=== PATIENT | female | born 1950 | race Caucasian/White ===

== ENCOUNTER 2019-12-21 12:55 | Outpatient (CLI) | payer MEDICARE, BC, SELFPAY ==
--- NOTE | 2019-12-21 | DI.US_ITS ---
EXAM: US UPPER EXTREMITY VENOUS RT CLINICAL HISTORY: PT HAS PICC LINE, NEW PAIN RADIATING, ? DVT, LOSS OF RANGE OF MOTION. TECHNIQUE: Ultrasound examination of the right upper extremity venous system(s) is performed using g rayscale, color-flow, and spectral Doppler analysis. COMPARISON: No exams were available for comparison FINDINGS: The right internal jugular, axillary, subclavian, cephalic, and basilic veins are patent without evid ence of thrombosis. There is a PICC line seen in the right brachial vein. There is hypoechoic throm bus seen in the proximal and mid right brachial vein. IMPRESSION: Thrombus seen in the proximal mid right brachial vein. PICC line seen in the right brachial vein. DATA REPOSITORY:
== END 2019-12-21 13:15 ==
PROVIDERS: PCP Internal Medicine; Visit Provider Nurse Practitioner Family
DX: I82.621 Acute embolism and thrombosis of deep veins of right upper extremity (principal); Z95.828 Presence of other vascular implants and grafts; M79.601 Pain in right arm; D46.20 Refractory anemia with excess of blasts, unspecified; Z45.2 Encounter for adjustment and management of vascular access device
CPT/HCPCS: 36592; 80053; 86850; 86900; 86901; 85025; 93971

== ENCOUNTER 2019-12-31 02:00 | Outpatient (RCR) | payer MEDICARE, BC, SELFPAY ==
[2019-12-21 09:49] LABS: HCT 25.6 % (36.0-46.0); HGB 8.6 g/dL (12.0-15.5); Mean Corp. HGB Concentration 33.6 g/dL (32.0-36.0); Mean Corpuscular Hemoglobin 35.1 pg (27.0-33.0); Mean Corpuscular Volume 104.5 fL (80-95); Mean Platelet Volume 9.2 fL (8.0-11.0); RBC 2.45 m/cumm (4.00-5.20); White Blood Cell Count 3.43 k/cumm (4.4-10.8)
[2019-12-21 10:02] LABS: ALT 17 U/L (14-59); AST 14 U/L (15-37); Albumin 3.2 g/dL (3.4-5.0); Alkaline Phosphatase 79 U/L (46-116); Anion Gap 6.4 mmol/L (3-11); BUN 15 mg/dL (7-18); Bilirubin, Total 0.3 mg/dL (0.2-1.0); CO2 30.6 mmol/L (21.0-32.0); CREATININE 0.64 mg/dL (0.55-1.02); Calcium 8.8 mg/dL (8.5-10.1); Chloride 102 mmol/L (98-107); Glucose 104 mg/dL (74-106); Potassium 3.4 mmol/L (3.5-5.1); Sodium 139 mmol/L (136-145); Total Protein 6.3 g/dL (6.4-8.2)
[2019-12-21 10:11] LABS: Absolute Neutrophil Count 1.47 k/cumm (1.2-6.7)
[2019-12-21 10:12] LABS: Absolute Eosinophil Count 0.03 k/cumm (0.0-0.7); Absolute Lymphocyte Count 1.65 k/cumm (1.2-3.4); Absolute Monocyte Count 0.27 k/cumm (0.11-0.7)
[2019-12-21 10:23] LABS: Anisocytosis 3+; Diff Comment Manual Differential; Platelet Count 100 x1000/uL (130-400)
[2019-12-21 10:24] LABS: Polychromasia Present
[2019-12-21] MEDS: Normal Saline Flush 10 ML SYR IVP (11:01)
[2019-12-24 10:40] LABS: Absolute Lymphocyte Count 1.53 k/cumm (1.2-3.4); Absolute Monocyte Count 0.25 k/cumm (0.11-0.7); Absolute Neutrophil Count 0.85 k/cumm (1.2-6.7); HCT 26.3 % (36.0-46.0); HGB 8.6 g/dL (12.0-15.5); Lymphocytes % 58.2; Mean Corp. HGB Concentration 32.7 g/dL (32.0-36.0); Mean Corpuscular Hemoglobin 34.4 pg (27.0-33.0); Mean Corpuscular Volume 105.2 fL (80-95); Mean Platelet Volume 9.2 fL (8.0-11.0); Monocytes % 9.5; Neutrophils % 32.3; White Blood Cell Count 2.63 k/cumm (4.4-10.8)
[2019-12-24 10:54] LABS: ALT 20 U/L (14-59); AST 20 U/L (15-37); Albumin 3.2 g/dL (3.4-5.0); Alkaline Phosphatase 76 U/L (46-116); Anion Gap 7.2 mmol/L (3-11); BUN 15 mg/dL (7-18); Bilirubin, Total 0.4 mg/dL (0.2-1.0); CO2 29.8 mmol/L (21.0-32.0); CREATININE 0.61 mg/dL (0.55-1.02); Calcium 8.7 mg/dL (8.5-10.1); Chloride 104 mmol/L (98-107); Glucose 90 mg/dL (74-106); Potassium 3.7 mmol/L (3.5-5.1); Sodium 141 mmol/L (136-145); Total Protein 6.6 g/dL (6.4-8.2)
[2019-12-24 10:59] LABS: Anisocytosis 3+; Diff Comment Agrees w/ Instrument; Macrocytosis 2+; Microcytosis 2+; Platelet Count 86 x1000/uL (130-400); Polychromasia Present
[2019-12-28 10:16] LABS: Absolute Lymphocyte Count 1.44 k/cumm (1.2-3.4); Absolute Monocyte Count 0.34 k/cumm (0.11-0.7); Absolute Neutrophil Count 0.59 k/cumm (1.2-6.7); HCT 26.4 % (36.0-46.0); HGB 8.9 g/dL (12.0-15.5); Lymphocytes % 60.8; Mean Corp. HGB Concentration 33.7 g/dL (32.0-36.0); Mean Corpuscular Hemoglobin 35.9 pg (27.0-33.0); Mean Corpuscular Volume 106.5 fL (80-95); Mean Platelet Volume 9.6 fL (8.0-11.0); Monocytes % 14.3; Neutrophils % 24.9; RBC 2.48 m/cumm (4.00-5.20); White Blood Cell Count 2.37 k/cumm (4.4-10.8)
[2019-12-28 10:27] LABS: ALT 39 U/L (14-59); AST 26 U/L (15-37); Albumin 3.3 g/dL (3.4-5.0); Alkaline Phosphatase 90 U/L (46-116); BUN 10 mg/dL (7-18); Bilirubin, Total 0.2 mg/dL (0.2-1.0); CREATININE 0.57 mg/dL (0.55-1.02); Calcium 8.8 mg/dL (8.5-10.1); Chloride 103 mmol/L (98-107); Glucose 106 mg/dL (74-106); Potassium 3.4 mmol/L (3.5-5.1); Sodium 140 mmol/L (136-145); Total Protein 6.8 g/dL (6.4-8.2)
[2019-12-28] MEDS: Normal Saline Flush 10 ML SYR IVP (10:34)
[2019-12-28 10:40] LABS: Anisocytosis 2+; Diff Comment Agrees w/ Instrument; Macrocytosis 2+; Microcytosis 2+; Platelet Count 69 x1000/uL (130-400); Polychromasia Present
[2019-12-31] MEDS: Normal Saline Flush 10 ML SYR IVP (09:50)
[2019-12-31 10:20] LABS: Abs Immature Grans 0.01 10^3/uL (0.0-0.06); Absolute Basophil Count 0.01 10^3/uL (0.0-0.2); Absolute Lymphocyte Count 1.29 10^3/uL (1.2-3.4); Absolute Monocyte Count 0.14 10^3/uL (0.1-0.8); Absolute Neutrophil Count 0.74 10^3/uL (1.2-6.7); Basophils % 0.5; HCT 25.6 % (36.0-46.0); HGB 8.4 g/dL (11.2-15.7); Immature Grans % 0.5; Lymphocytes % 58.9; MCH 35.9 pg (27.0-33.0); MCHC 32.8 % (32.0-36.0); MCV 109.4 fL (80-95); MPV 10.4 fL (8.0-11.0); Monocytes % 6.4; Neutrophils % 33.7; RBC 2.34 10^6/uL (3.93-5.22); WBC 2.19 10^3/uL (4.4-10.8)
[2019-12-31 10:39] LABS: ALT 35 U/L (14-59); AST 22 U/L (15-37); Albumin 3.2 g/dL (3.4-5.0); Alkaline Phosphatase 84 U/L (46-116); Anion Gap 8.1 mmol/L (3-11); BUN 15 mg/dL (7-18); Bilirubin, Total 0.2 mg/dL (0.2-1.0); CO2 27.9 mmol/L (21.0-32.0); CREATININE 0.56 mg/dL (0.55-1.02); Calcium 8.7 mg/dL (8.5-10.1); Chloride 102 mmol/L (98-107); Glucose 138 mg/dL (74-106); Potassium 3.7 mmol/L (3.5-5.1); Sodium 138 mmol/L (136-145); Total Protein 6.4 g/dL (6.4-8.2)
[2019-12-31 10:57] LABS: Platelet Count 68 10^3/uL (130-400)
[2019-12-31 10:58] LABS: Anisocytosis 2+; Diff Comment RBC Morph Reviewed; Macrocytosis 2+; Microcytosis 1+; Poikilocytes 1+; Polychromasia Present
== END 2020-01-01 23:59 | disposition home or self-care (01) ==
LOC: INF 02:00
PROVIDERS: PCP Internal Medicine; Visit Provider Internal Medicine Hematology
DX: D46.20 Refractory anemia with excess of blasts, unspecified (principal); Z45.2 Encounter for adjustment and management of vascular access device
CPT/HCPCS: 36592; 80053; 86850; 86900; 86901; 85025

== ENCOUNTER 2020-01-07 01:17 | Outpatient (CLI) | payer MEDICARE, BC, SELFPAY ==
--- NOTE | 2020-01-07 | DI.US_ITS ---
EXAM: US UPPER EXTREMITY VENOUS RT CLINICAL HISTORY: MYELODYSPLASTIC SYNDROME,D46.Z,ACUTE DVT,I82.621,H/O BRACHIAL VEIN CLOT TECHNIQUE: Ultrasound performed using standard protocol. COMPARISON: US US UPPER EXTREMITY VENOUS RT from 12/21/2019 FINDINGS: Prior study of December 20 showed DVT surrounding a PICC line in the right brachial vein. This thrombu s has now resolved. No DVT identified on today's examination. Please note that the axillary vein wa s not clearly identified on today's examination. IMPRESSION: Resolution of previously noted brachial DVT at the PICC line insertion site. DATA REPOSITORY:
== END 2020-01-07 01:37 ==
PROVIDERS: PCP Internal Medicine; Visit Provider Nurse Practitioner Family
DX: D46.Z Other myelodysplastic syndromes (principal); Z86.718 Personal history of other venous thrombosis and embolism
CPT/HCPCS: 36592; 80053; 85025; 93971

== ENCOUNTER 2020-02-01 02:41 | Outpatient (RCR) | payer MEDICARE, BC, SELFPAY ==
[2020-01-04 10:16] LABS: Abs Immature Grans 0.01 10^3/uL (0.0-0.06); Absolute Basophil Count 0.01 10^3/uL (0.0-0.2); Absolute Lymphocyte Count 1.24 10^3/uL (1.2-3.4); Absolute Monocyte Count 0.04 10^3/uL (0.1-0.8); Absolute Neutrophil Count 1.07 10^3/uL (1.2-6.7); Basophils % 0.4; HCT 26.1 % (36.0-46.0); HGB 8.6 g/dL (11.2-15.7); Immature Grans % 0.4; Lymphocytes % 52.3; MCH 36.1 pg (27.0-33.0); MCV 109.7 fL (80-95); MPV 10.4 fL (8.0-11.0); Monocytes % 1.7; Neutrophils % 45.2; RBC 2.38 10^6/uL (3.93-5.22); RDW 21.9 % (11.7-14.6); RDW-SD 85.4 fL; WBC 2.37 10^3/uL (4.4-10.8)
[2020-01-04] MEDS: Normal Saline Flush 10 ML SYR IVP (10:23)
[2020-01-04 10:31] LABS: ALT 29 U/L (14-59); AST 20 U/L (15-37); Albumin 3.2 g/dL (3.4-5.0); Alkaline Phosphatase 92 U/L (46-116); Anion Gap 5.9 mmol/L (3-11); BUN 16 mg/dL (7-18); Bilirubin, Total 0.2 mg/dL (0.2-1.0); CO2 30.1 mmol/L (21.0-32.0); CREATININE 0.58 mg/dL (0.55-1.02); Calcium 8.7 mg/dL (8.5-10.1); Chloride 104 mmol/L (98-107); Glucose 109 mg/dL (74-106); Potassium 3.5 mmol/L (3.5-5.1); Sodium 140 mmol/L (136-145); Total Protein 6.6 g/dL (6.4-8.2)
[2020-01-04 10:59] LABS: Diff Comment Agrees w/ Instrument
[2020-01-04 11:01] LABS: Anisocytosis 2+; Hypochromasia 1+; Macrocytosis 2+; Platelet Count 89 10^3/uL (130-400)
[2020-01-07] MEDS: Normal Saline Flush 10 ML SYR IVP (10:01)
[2020-01-07 10:09] LABS: Absolute Basophil Count 0.01 10^3/uL (0.0-0.2); Absolute Lymphocyte Count 1.26 10^3/uL (1.2-3.4); Absolute Monocyte Count 0.06 10^3/uL (0.1-0.8); Absolute Neutrophil Count 1.03 10^3/uL (1.2-6.7); Basophils % 0.4; HCT 26.8 % (36.0-46.0); HGB 8.8 g/dL (11.2-15.7); Lymphocytes % 53.4; MCH 36.5 pg (27.0-33.0); MCHC 32.8 % (32.0-36.0); MCV 111.2 fL (80-95); MPV 9.8 fL (8.0-11.0); Monocytes % 2.5; Neutrophils % 43.7; Nucleated RBC 0 %; RBC 2.41 10^6/uL (3.93-5.22); RDW 20.8 % (11.7-14.6); RDW-SD 82.3 fL; WBC 2.36 10^3/uL (4.4-10.8)
[2020-01-07 10:21] LABS: ALT 28 U/L (14-59); AST 18 U/L (15-37); Albumin 3.3 g/dL (3.4-5.0); Alkaline Phosphatase 91 U/L (46-116); Anion Gap 6.6 mmol/L (3-11); BUN 12 mg/dL (7-18); Bilirubin, Total 0.2 mg/dL (0.2-1.0); CO2 29.4 mmol/L (21.0-32.0); CREATININE 0.62 mg/dL (0.55-1.02); Chloride 103 mmol/L (98-107); Glucose 112 mg/dL (74-106); Potassium 3.6 mmol/L (3.5-5.1); Sodium 139 mmol/L (136-145); Total Protein 6.8 g/dL (6.4-8.2)
[2020-01-07 10:47] LABS: Anisocytosis 2+; Diff Comment Agrees w/ Instrument; Macrocytosis 1+; Platelet Count 117 10^3/uL (130-400); Polychromasia Present
[2020-01-07 10:49] LABS: Poikilocytes 1+
[2020-01-11 10:30] LABS: Abs Immature Grans 0.02 10^3/uL (0.0-0.06); Absolute Basophil Count 0.02 10^3/uL (0.0-0.2); Absolute Eosinophil Count 0.02 10^3/uL (0.0-0.7); Absolute Lymphocyte Count 0.24 10^3/uL (1.2-3.4); Absolute Monocyte Count 0.23 10^3/uL (0.1-0.8); Absolute Neutrophil Count 1.99 10^3/uL (1.2-6.7); Basophils % 0.8; Eosinophils % 0.8; HCT 30.9 % (36.0-46.0); HGB 10.4 g/dL (11.2-15.7); Immature Grans % 0.8; Lymphocytes % 9.5; MCH 30.6 pg (27.0-33.0); MCHC 33.7 % (32.0-36.0); MCV 90.9 fL (80-95); MPV 8.2 fL (8.0-11.0); Monocytes % 9.1; Nucleated RBC 0 %; Platelet Count 172 10^3/uL (130-400); RDW-SD 45.2 fL; WBC 2.52 10^3/uL (4.4-10.8)
[2020-01-11] MEDS: Normal Saline Flush 10 ML SYR IVP (10:31)
[2020-01-11 10:47] LABS: ALT 21 U/L (14-59); AST 14 U/L (15-37); Albumin 3.3 g/dL (3.4-5.0); Alkaline Phosphatase 106 U/L (46-116); Anion Gap 7.5 mmol/L (3-11); BUN 24 mg/dL (7-18); Bilirubin, Total 0.3 mg/dL (0.2-1.0); CO2 29.5 mmol/L (21.0-32.0); CREATININE 0.73 mg/dL (0.55-1.02); Calcium 8.9 mg/dL (8.5-10.1); Chloride 91 mmol/L (98-107); Glucose 109 mg/dL (74-106); Potassium 4.2 mmol/L (3.5-5.1); Sodium 128 mmol/L (136-145); Total Protein 6.7 g/dL (6.4-8.2)
[2020-01-21] MEDS: Normal Saline Flush 10 ML SYR IVP (08:54)
[2020-01-21] MEDS: Heparin 500 UNITS/5 ML SYRINGE IVP (08:54)
[2020-01-21 08:57] LABS: Abs Immature Grans 0.01 10^3/uL (0.0-0.06); HCT 23.5 % (36.0-46.0); HGB 7.7 g/dL (11.2-15.7); MCH 37.4 pg (27.0-33.0); MCHC 32.8 % (32.0-36.0); MCV 114.1 fL (80-95); MPV 9.8 fL (8.0-11.0); RBC 2.06 10^6/uL (3.93-5.22); RDW 17.7 % (11.7-14.6); WBC 2.78 10^3/uL (4.4-10.8)
[2020-01-21 09:12] LABS: ALT 18 U/L (14-59); AST 13 U/L (15-37); Alkaline Phosphatase 78 U/L (46-116); Anion Gap 9.1 mmol/L (3-11); BUN 14 mg/dL (7-18); Bilirubin, Total 0.3 mg/dL (0.2-1.0); CO2 28.9 mmol/L (21.0-32.0); CREATININE 0.76 mg/dL (0.55-1.02); Calcium 8.9 mg/dL (8.5-10.1); Chloride 102 mmol/L (98-107); Glucose 187 mg/dL (74-106); Potassium 3.3 mmol/L (3.5-5.1); Sodium 140 mmol/L (136-145); Total Protein 6.5 g/dL (6.4-8.2)
[2020-01-21 09:20] LABS: Absolute Eosinophil Count 0.03 10^3/uL (0.0-0.7); Absolute Lymphocyte Count 1.42 10^3/uL (1.2-3.4); Absolute Monocyte Count 0.22 10^3/uL (0.1-0.8); Absolute Neutrophil Count 1.11 10^3/uL (1.2-6.7); Anisocytosis 1+; Diff Comment Manual Differential; Macrocytosis 2+; Platelet Count 74 10^3/uL (130-400); Poikilocytes 1+
[2020-01-21 09:21] LABS: Nucleated RBC 0 %
[2020-01-21 12:09] LABS: Magnesium 1.6 mg/dL (1.8-2.4)
[2020-01-22] MEDS: diphenhydrAMINE 25 MG CAP PO (11:57)
[2020-01-22] MEDS: Acetaminophen 325 MG TAB 650 MG PO (11:57)
[2020-01-22] MEDS: Normal Saline Flush 10 ML SYR IVP (11:58)
[2020-01-22] MEDS: Heparin 500 UNITS/5 ML SYRINGE IVP (11:58)
[2020-01-22 12:10] VITALS: BP 119/61; PULSE 89; RESP 20; TEMP 36.4; O2SAT 100
[2020-01-22 12:25] VITALS: BP 132/79; PULSE 91; RESP 20; TEMP 36.2; O2SAT 100
[2020-01-22 12:40] VITALS: BP 127/75; PULSE 90; RESP 18; TEMP 36.3; O2SAT 100
[2020-01-22 12:55] VITALS: BP 121/78; PULSE 83; RESP 19; TEMP 36.3; O2SAT 95
[2020-01-22 13:10] VITALS: BP 126/74; PULSE 82; RESP 19; TEMP 36.6; O2SAT 100
[2020-01-25] MEDS: Normal Saline Flush 10 ML SYR IVP (10:26)
[2020-01-25 10:47] LABS: HCT 27.5 % (36.0-46.0); MCV 106.2 fL (80-95); RBC 2.59 10^6/uL (3.93-5.22); RDW 19.9 % (11.7-14.6)
[2020-01-25 10:50] LABS: Abs Immature Grans 0.01 10^3/uL (0.0-0.06); Absolute Eosinophil Count 0.02 10^3/uL (0.0-0.7); Eosinophils % 0.6; Immature Grans % 0.3; Nucleated RBC 0 %
[2020-01-25 10:54] LABS: ALT 18 U/L (14-59); AST 14 U/L (15-37); Alkaline Phosphatase 81 U/L (46-116); Anion Gap 5.3 mmol/L (3-11); BUN 16 mg/dL (7-18); Bilirubin, Total 0.3 mg/dL (0.2-1.0); CO2 30.7 mmol/L (21.0-32.0); CREATININE 0.49 mg/dL (0.55-1.02); Calcium 8.7 mg/dL (8.5-10.1); Chloride 103 mmol/L (98-107); Glucose 124 mg/dL (74-106); Potassium 3.7 mmol/L (3.5-5.1); Sodium 139 mmol/L (136-145); Total Protein 6.3 g/dL (6.4-8.2)
[2020-01-25 11:06] LABS: Absolute Lymphocyte Count 1.41 10^3/uL (1.2-3.4); Absolute Monocyte Count 0.24 10^3/uL (0.1-0.8); Absolute Neutrophil Count 1.77 10^3/uL (1.2-6.7); HGB 9.3 g/dL (11.2-15.7); Lymphocytes % 40.9; MCH 35.9 pg (27.0-33.0); MCHC 33.8 % (32.0-36.0); MPV 10.2 fL (8.0-11.0); Neutrophils % 51.2; RDW-SD 74.6 fL; WBC 3.45 10^3/uL (4.4-10.8)
[2020-01-25] MEDS: Heparin 500 UNITS/5 ML SYRINGE IVP (11:21)
[2020-01-25 11:34] LABS: Platelet Count 60 10^3/uL (130-400)
[2020-01-25 11:35] LABS: Basophilic Stippling Present; Diff Comment RBC Morph Reviewed; Macrocytosis 2+; Polychromasia Present
[2020-01-27 10:18] LABS: Magnesium 1.7 mg/dL (1.8-2.4)
[2020-01-28] MEDS: Heparin 500 UNITS/5 ML SYRINGE IVP (09:58)
[2020-01-28] MEDS: Normal Saline Flush 10 ML SYR IVP (09:58)
[2020-01-28 10:21] LABS: Absolute Eosinophil Count 0.01 10^3/uL (0.0-0.7); Absolute Lymphocyte Count 1.42 10^3/uL (1.2-3.4); Absolute Monocyte Count 0.17 10^3/uL (0.1-0.8); Absolute Neutrophil Count 1.02 10^3/uL (1.2-6.7); Eosinophils % 0.4; HCT 27.9 % (36.0-46.0); HGB 9.3 g/dL (11.2-15.7); Lymphocytes % 54.2; MCH 35.5 pg (27.0-33.0); MCHC 33.3 % (32.0-36.0); MCV 106.5 fL (80-95); MPV 10.4 fL (8.0-11.0); Monocytes % 6.5; Neutrophils % 38.9; Nucleated RBC 0 %; RBC 2.62 10^6/uL (3.93-5.22); RDW 19.2 % (11.7-14.6); RDW-SD 73.4 fL; WBC 2.62 10^3/uL (4.4-10.8)
[2020-01-28 10:36] LABS: ALT 23 U/L (14-59); AST 13 U/L (15-37); Albumin 3.3 g/dL (3.4-5.0); Alkaline Phosphatase 85 U/L (46-116); Anion Gap 4.4 mmol/L (3-11); BUN 14 mg/dL (7-18); Bilirubin, Total 0.4 mg/dL (0.2-1.0); CO2 30.6 mmol/L (21.0-32.0); Calculated LDL 106 mg/dL (<100); Chloride 107 mmol/L (98-107); Cholesterol 193 mg/dL (<200); Glucose 107 mg/dL (74-106); HDL Cholesterol 68 mg/dL (40-60); Magnesium 1.6 mg/dL (1.8-2.4); Potassium 3.6 mmol/L (3.5-5.1); Sodium 142 mmol/L (136-145); Total Protein 6.7 g/dL (6.4-8.2); Triglyceride 95 mg/dL (<150)
[2020-01-28 10:52] LABS: Diff Comment Diff Reviewed; Macrocytosis 2+; Platelet Count 53 10^3/uL (130-400); Polychromasia Present
[2020-02-01] MEDS: Heparin 500 UNITS/5 ML SYRINGE IVP (09:47)
[2020-02-01] MEDS: Normal Saline Flush 10 ML SYR IVP (09:47)
[2020-02-01 10:12] LABS: HCT 25.8 % (36.0-46.0); HGB 8.9 g/dL (11.2-15.7); MCH 36.2 pg (27.0-33.0); MCHC 34.5 % (32.0-36.0); MCV 104.9 fL (80-95); MPV 10.9 fL (8.0-11.0); Nucleated RBC 0 %; RBC 2.46 10^6/uL (3.93-5.22); RDW 19.1 % (11.7-14.6); RDW-SD 71.8 fL; WBC 2.83 10^3/uL (4.4-10.8)
[2020-02-01 10:23] LABS: ALT 22 U/L (14-59); AST 16 U/L (15-37); Albumin 3.1 g/dL (3.4-5.0); Alkaline Phosphatase 86 U/L (46-116); Anion Gap 6.8 mmol/L (3-11); BUN 15 mg/dL (7-18); Bilirubin, Total 0.3 mg/dL (0.2-1.0); CO2 30.2 mmol/L (21.0-32.0); CREATININE 0.57 mg/dL (0.55-1.02); Calcium 8.8 mg/dL (8.5-10.1); Chloride 103 mmol/L (98-107); Glucose 88 mg/dL (74-106); Magnesium 1.7 mg/dL (1.8-2.4); Potassium 3.5 mmol/L (3.5-5.1); Sodium 140 mmol/L (136-145); Total Protein 6.7 g/dL (6.4-8.2)
[2020-02-01 10:47] LABS: Absolute Lymphocyte Count 1.64 10^3/uL (1.2-3.4); Absolute Neutrophil Count 0.99 10^3/uL (1.2-6.7); Anisocytosis 1+; Diff Comment Manual Differential; Polychromasia Present
[2020-02-01 10:48] LABS: Platelet Count 41 10^3/uL (130-400); Poikilocytes 1+
== END 2020-02-01 23:59 | disposition home or self-care (01) ==
LOC: INF 02:41
PROVIDERS: PCP Internal Medicine; Visit Provider Internal Medicine Hematology
DX: D46.Z Other myelodysplastic syndromes (principal); Z45.2 Encounter for adjustment and management of vascular access device; E78.5 Hyperlipidemia, unspecified
CPT/HCPCS: 36430; 36591; 36592; 80053; 80061; 86850; 86900; 86901; 86920; 86945; 83735; 85025; 86644; P9016

== ENCOUNTER 2020-03-01 01:57 | Outpatient (RCR) | payer MEDICARE, BC, SELFPAY ==
[2020-02-04] MEDS: Heparin 500 UNITS/5 ML SYRINGE IV (09:35)
[2020-02-04] MEDS: Normal Saline Flush 10 ML SYR IVP (09:35)
[2020-02-04 09:48] LABS: Absolute Lymphocyte Count 1.17 10^3/uL (1.2-3.4); Absolute Neutrophil Count 1.17 10^3/uL (1.2-6.7); HCT 25.4 % (36.0-46.0); HGB 8.5 g/dL (11.2-15.7); MCH 35.9 pg (27.0-33.0); MCHC 33.5 % (32.0-36.0); MCV 107.2 fL (80-95); MPV 10.8 fL (8.0-11.0); Monocytes % 4.1; Neutrophils % 47.9; Nucleated RBC 0 %; RBC 2.37 10^6/uL (3.93-5.22); RDW 19.4 % (11.7-14.6); RDW-SD 74.3 fL; WBC 2.44 10^3/uL (4.4-10.8)
[2020-02-04 09:59] LABS: ALT 31 U/L (14-59); AST 18 U/L (15-37); Alkaline Phosphatase 104 U/L (46-116); Anion Gap 6.6 mmol/L (3-11); BUN 15 mg/dL (7-18); Bilirubin, Total 0.3 mg/dL (0.2-1.0); CO2 29.4 mmol/L (21.0-32.0); CREATININE 0.56 mg/dL (0.55-1.02); Calcium 8.7 mg/dL (8.5-10.1); Chloride 103 mmol/L (98-107); Glucose 124 mg/dL (74-106); Magnesium 1.6 mg/dL (1.8-2.4); Potassium 3.4 mmol/L (3.5-5.1); Sodium 139 mmol/L (136-145); Total Protein 6.6 g/dL (6.4-8.2)
[2020-02-04 10:18] LABS: Anisocytosis 1+; Diff Comment RBC Morph Reviewed; Hypochromasia 1+; Macrocytosis 2+; Platelet Count 43 10^3/uL (130-400)
[2020-02-04 10:19] LABS: Poikilocytes 1+; Polychromasia Present
[2020-02-09] MEDS: Normal Saline Flush 10 ML SYR IVP (09:52)
[2020-02-09] MEDS: Heparin 500 UNITS/5 ML SYRINGE IV (09:53)
[2020-02-09 10:02] LABS: HCT 24.3 % (36.0-46.0); HGB 8.1 g/dL (11.2-15.7); MCH 36.2 pg (27.0-33.0); MCHC 33.3 % (32.0-36.0); MCV 108.5 fL (80-95); MPV 10.4 fL (8.0-11.0); Nucleated RBC 0 %; RBC 2.24 10^6/uL (3.93-5.22); RDW 18.8 % (11.7-14.6); RDW-SD 73.9 fL; WBC 2.38 10^3/uL (4.4-10.8)
[2020-02-09 10:11] LABS: ALT 29 U/L (14-59); AST 15 U/L (15-37); Albumin 3.1 g/dL (3.4-5.0); Alkaline Phosphatase 115 U/L (46-116); Anion Gap 5.8 mmol/L (3-11); BUN 12 mg/dL (7-18); Bilirubin, Total 0.3 mg/dL (0.2-1.0); CO2 30.2 mmol/L (21.0-32.0); CREATININE 0.49 mg/dL (0.55-1.02); Calcium 8.5 mg/dL (8.5-10.1); Chloride 102 mmol/L (98-107); Glucose 97 mg/dL (74-106); Magnesium 1.6 mg/dL (1.8-2.4); Potassium 3.4 mmol/L (3.5-5.1); Sodium 138 mmol/L (136-145); Total Protein 6.6 g/dL (6.4-8.2)
[2020-02-09 10:28] LABS: Absolute Monocyte Count 0.05 10^3/uL (0.1-0.8); Absolute Neutrophil Count 1.19 10^3/uL (1.2-6.7); Anisocytosis 2+; Diff Comment Manual Differential; Platelet Count 72 10^3/uL (130-400)
[2020-02-09 10:29] LABS: Absolute Lymphocyte Count 1.14 10^3/uL (1.2-3.4); Atypical Lymphocytes % 3; Macrocytosis 2+; Polychromasia Present
[2020-02-11] MEDS: Normal Saline Flush 10 ML SYR IVP (09:45)
[2020-02-11] MEDS: Heparin 500 UNITS/5 ML SYRINGE IV (09:45)
[2020-02-11 10:05] LABS: HCT 24.3 % (36.0-46.0); HGB 8.1 g/dL (11.2-15.7); MCH 36.2 pg (27.0-33.0); MCHC 33.3 % (32.0-36.0); MCV 108.5 fL (80-95); MPV 10.2 fL (8.0-11.0); Nucleated RBC 0 %; Platelet Count 75 10^3/uL (130-400); RBC 2.24 10^6/uL (3.93-5.22); RDW 18.7 % (11.7-14.6); RDW-SD 74.7 fL; WBC 2.03 10^3/uL (4.4-10.8)
[2020-02-11 10:14] LABS: ALT 29 U/L (14-59); AST 16 U/L (15-37); Albumin 3.1 g/dL (3.4-5.0); Alkaline Phosphatase 127 U/L (46-116); Anion Gap 8.3 mmol/L (3-11); BUN 13 mg/dL (7-18); Bilirubin, Total 0.3 mg/dL (0.2-1.0); CO2 27.7 mmol/L (21.0-32.0); Calcium 8.7 mg/dL (8.5-10.1); Chloride 101 mmol/L (98-107); Glucose 102 mg/dL (74-106); Magnesium 1.7 mg/dL (1.8-2.4); Potassium 3.4 mmol/L (3.5-5.1); Sodium 137 mmol/L (136-145); Total Protein 6.8 g/dL (6.4-8.2)
[2020-02-11 10:43] LABS: Absolute Neutrophil Count 0.71 10^3/uL (1.2-6.7)
[2020-02-11 10:44] LABS: Absolute Eosinophil Count 0.02 10^3/uL (0.0-0.7); Absolute Lymphocyte Count 1.26 10^3/uL (1.2-3.4); Absolute Monocyte Count 0.04 10^3/uL (0.1-0.8); Anisocytosis 2+; Diff Comment Manual Differential; Macrocytosis 2+
[2020-02-15] MEDS: Heparin 500 UNITS/5 ML SYRINGE IV (09:45)
[2020-02-15] MEDS: Normal Saline Flush 10 ML SYR IVP (09:45)
[2020-02-15 09:59] LABS: Abs Immature Grans 0.01 10^3/uL (0.0-0.06); Absolute Lymphocyte Count 1.18 10^3/uL (1.2-3.4); Absolute Monocyte Count 0.07 10^3/uL (0.1-0.8); HGB 7.6 g/dL (11.2-15.7); Immature Grans % 0.7; Lymphocytes % 82.5; MCH 35.8 pg (27.0-33.0); MCV 108.5 fL (80-95); MPV 9.4 fL (8.0-11.0); Monocytes % 4.9; Neutrophils % 11.9; Nucleated RBC 0 %; RBC 2.12 10^6/uL (3.93-5.22); RDW-SD 70.6 fL
[2020-02-15 10:20] LABS: ALT 26 U/L (14-59); AST 17 U/L (15-37); Albumin 2.9 g/dL (3.4-5.0); Alkaline Phosphatase 134 U/L (46-116); Anion Gap 6.8 mmol/L (3-11); BUN 16 mg/dL (7-18); Bilirubin, Total 0.3 mg/dL (0.2-1.0); CO2 28.2 mmol/L (21.0-32.0); CREATININE 0.57 mg/dL (0.55-1.02); Calcium 8.7 mg/dL (8.5-10.1); Chloride 103 mmol/L (98-107); Glucose 129 mg/dL (74-106); Magnesium 1.9 mg/dL (1.8-2.4); Potassium 3.5 mmol/L (3.5-5.1); Sodium 138 mmol/L (136-145); Total Protein 6.7 g/dL (6.4-8.2)
[2020-02-15 10:40] LABS: Diff Comment Agrees w/ Instrument; Hypochromasia 2+; Macrocytosis 2+; Platelet Count 71 10^3/uL (130-400)
[2020-02-15 10:48] LABS: WBC 1.43 10^3/uL (4.4-10.8)
[2020-02-15 10:49] LABS: Absolute Neutrophil Count 0.17 10^3/uL (1.2-6.7)
[2020-02-16] VITALS (8 sets, daily range): BP systolic 112–157; BP diastolic 57–87; PULSE 74–89; RESP 18–19; TEMP 36–36.9; O2SAT 99–100
[2020-02-16] MEDS: Acetaminophen 325 MG TAB 650 MG PO (09:44)
[2020-02-16] MEDS: diphenhydrAMINE 25 MG CAP PO (09:45)
[2020-02-16] MEDS: Normal Saline Flush 10 ML SYR IVP (11:44)
[2020-02-18] MEDS: Normal Saline Flush 10 ML SYR IVP (13:45)
[2020-02-18] MEDS: Heparin 500 UNITS/5 ML SYRINGE IV (13:45)
[2020-02-18 13:56] LABS: Abs Immature Grans 0.01 10^3/uL (0.0-0.06); Absolute Lymphocyte Count 1.04 10^3/uL (1.2-3.4); Absolute Monocyte Count 0.16 10^3/uL (0.1-0.8); HCT 23.5 % (36.0-46.0); Immature Grans % 0.7; Lymphocytes % 69.3; MCH 35.2 pg (27.0-33.0); MCV 103.5 fL (80-95); MPV 9.9 fL (8.0-11.0); Monocytes % 10.7; Neutrophils % 19.3; Nucleated RBC 0 %; RBC 2.27 10^6/uL (3.93-5.22); RDW 18.8 % (11.7-14.6); RDW-SD 70.9 fL
[2020-02-18 14:17] LABS: ALT 28 U/L (14-59); AST 22 U/L (15-37); Albumin 2.7 g/dL (3.4-5.0); Alkaline Phosphatase 145 U/L (46-116); Anion Gap 6.1 mmol/L (3-11); BUN 19 mg/dL (7-18); Bilirubin, Total 0.3 mg/dL (0.2-1.0); CO2 27.9 mmol/L (21.0-32.0); CREATININE 0.82 mg/dL (0.55-1.02); Calcium 8.5 mg/dL (8.5-10.1); Chloride 100 mmol/L (98-107); Glucose 224 mg/dL (74-106); Magnesium 1.7 mg/dL (1.8-2.4); Potassium 3.6 mmol/L (3.5-5.1); Sodium 134 mmol/L (136-145); Total Protein 6.5 g/dL (6.4-8.2)
[2020-02-18 14:21] LABS: Absolute Neutrophil Count 0.29 10^3/uL (1.2-6.7); Diff Comment Agrees w/ Instrument; Platelet Count 43 10^3/uL (130-400)
[2020-02-18 14:22] LABS: Anisocytosis 1+; Macrocytosis 1+; Polychromasia Present
[2020-02-22] MEDS: Heparin 500 UNITS/5 ML SYRINGE IV (12:27)
[2020-02-22] MEDS: Normal Saline Flush 10 ML SYR IVP (12:27)
[2020-02-22 12:39] LABS: Abs Immature Grans 0.02 10^3/uL (0.0-0.06); Absolute Eosinophil Count 0.01 10^3/uL (0.0-0.7); Absolute Lymphocyte Count 1.15 10^3/uL (1.2-3.4); Absolute Monocyte Count 0.37 10^3/uL (0.1-0.8); Absolute Neutrophil Count 0.96 10^3/uL (1.2-6.7); Eosinophils % 0.4; HCT 22.5 % (36.0-46.0); HGB 7.5 g/dL (11.2-15.7); Immature Grans % 0.8; Lymphocytes % 45.8; MCH 34.7 pg (27.0-33.0); MCHC 33.3 % (32.0-36.0); MCV 104.2 fL (80-95); Monocytes % 14.7; Neutrophils % 38.3; Nucleated RBC 1 %; RBC 2.16 10^6/uL (3.93-5.22); RDW 17.2 % (11.7-14.6); RDW-SD 66.1 fL; WBC 2.51 10^3/uL (4.4-10.8)
[2020-02-22 12:54] LABS: ALT 28 U/L (14-59); AST 21 U/L (15-37); Albumin 2.7 g/dL (3.4-5.0); Alkaline Phosphatase 150 U/L (46-116); Anion Gap 9.5 mmol/L (3-11); BUN 20 mg/dL (7-18); Bilirubin, Total 0.3 mg/dL (0.2-1.0); CO2 27.5 mmol/L (21.0-32.0); CREATININE 0.69 mg/dL (0.55-1.02); Calcium 8.6 mg/dL (8.5-10.1); Chloride 100 mmol/L (98-107); Glucose 183 mg/dL (74-106); Potassium 3.5 mmol/L (3.5-5.1); Sodium 137 mmol/L (136-145); Total Protein 6.7 g/dL (6.4-8.2)
[2020-02-22 13:16] LABS: Anisocytosis 1+; Diff Comment Agrees w/ Instrument; Platelet Count 28 10^3/uL (130-400); Polychromasia Present
[2020-02-23 11:05] VITALS: BP 162/97; PULSE 91; RESP 19; TEMP 36.2; O2SAT 100
[2020-02-23 11:13] VITALS: BP 158/95; PULSE 88; RESP 18; TEMP 36.2; O2SAT 100
[2020-02-23] MEDS: Heparin 500 UNITS/5 ML SYRINGE IV (11:15)
[2020-02-23] MEDS: Normal Saline Flush 10 ML SYR IVP (11:15)
[2020-02-23 11:28] VITALS: BP 154/75; PULSE 86; RESP 18; TEMP 36; O2SAT 100
[2020-02-23 11:43] VITALS: BP 155/88; PULSE 86; RESP 19; TEMP 36; O2SAT 100
[2020-02-23 12:13] VITALS: BP 141/63; PULSE 83; RESP 18; TEMP 36.1; O2SAT 100
[2020-02-23 12:44] VITALS: BP 141/69; PULSE 90; RESP 18; TEMP 36; O2SAT 100
[2020-02-25] MEDS: Normal Saline Flush 10 ML SYR IVP (09:55)
[2020-02-25 10:11] LABS: Abs Immature Grans 0.01 10^3/uL (0.0-0.06); Absolute Lymphocyte Count 1.38 10^3/uL (1.2-3.4); Absolute Monocyte Count 0.33 10^3/uL (0.1-0.8); Absolute Neutrophil Count 1.22 10^3/uL (1.2-6.7); HCT 25.3 % (36.0-46.0); HGB 8.5 g/dL (11.2-15.7); Immature Grans % 0.3; Lymphocytes % 46.9; MCH 33.6 pg (27.0-33.0); MCHC 33.6 % (32.0-36.0); MPV 11.1 fL (8.0-11.0); Monocytes % 11.2; Neutrophils % 41.6; Nucleated RBC 0 %; RBC 2.53 10^6/uL (3.93-5.22); RDW 18.1 % (11.7-14.6); RDW-SD 65.1 fL; WBC 2.94 10^3/uL (4.4-10.8)
[2020-02-25 10:28] LABS: ALT 31 U/L (14-59); AST 26 U/L (15-37); Albumin 2.7 g/dL (3.4-5.0); Alkaline Phosphatase 150 U/L (46-116); Anion Gap 7.6 mmol/L (3-11); BUN 19 mg/dL (7-18); Bilirubin, Total 0.3 mg/dL (0.2-1.0); CO2 28.4 mmol/L (21.0-32.0); CREATININE 0.59 mg/dL (0.55-1.02); Calcium 8.6 mg/dL (8.5-10.1); Chloride 102 mmol/L (98-107); Glucose 111 mg/dL (74-106); Potassium 3.7 mmol/L (3.5-5.1); Sodium 138 mmol/L (136-145); Total Protein 6.5 g/dL (6.4-8.2)
[2020-02-25 10:43] LABS: Platelet Count 20 10^3/uL (130-400)
[2020-02-25 10:44] LABS: Anisocytosis 1+; Diff Comment Diff Reviewed; Macrocytosis 1+; Polychromasia Present
[2020-02-29] MEDS: Normal Saline Flush 10 ML SYR IVP (10:08)
[2020-02-29 10:25] LABS: Abs Immature Grans 0.01 10^3/uL (0.0-0.06); Absolute Lymphocyte Count 1.43 10^3/uL (1.2-3.4); Absolute Monocyte Count 0.32 10^3/uL (0.1-0.8); Immature Grans % 0.3; Lymphocytes % 43.9; MCH 34.2 pg (27.0-33.0); MCHC 33.7 % (32.0-36.0); MCV 101.6 fL (80-95); MPV 9.8 fL (8.0-11.0); Monocytes % 9.8; Nucleated RBC 0 %; RBC 1.87 10^6/uL (3.93-5.22); RDW 17.3 % (11.7-14.6); RDW-SD 63.1 fL; WBC 3.26 10^3/uL (4.4-10.8)
[2020-02-29 10:43] LABS: HGB 6.4 g/dL (11.2-15.7)
[2020-02-29 10:44] LABS: Diff Comment Diff Reviewed; Platelet Count 19 10^3/uL (130-400)
[2020-02-29 10:45] LABS: Anisocytosis 2+; Polychromasia Present
[2020-02-29 10:50] LABS: ALT 34 U/L (14-59); AST 21 U/L (15-37); Albumin 2.6 g/dL (3.4-5.0); Alkaline Phosphatase 159 U/L (46-116); Anion Gap 6.5 mmol/L (3-11); BUN 19 mg/dL (7-18); Bilirubin, Total 0.3 mg/dL (0.2-1.0); CO2 27.5 mmol/L (21.0-32.0); CREATININE 0.56 mg/dL (0.55-1.02); Calcium 8.6 mg/dL (8.5-10.1); Chloride 102 mmol/L (98-107); Glucose 140 mg/dL (74-106); Potassium 3.5 mmol/L (3.5-5.1); Sodium 136 mmol/L (136-145); Total Protein 6.4 g/dL (6.4-8.2)
[2020-03-01] VITALS (10 sets, daily range): BP systolic 106–141; BP diastolic 66–85; PULSE 83–92; RESP 18; TEMP 36.3–36.8; O2SAT 99–100
[2020-03-01] MEDS: Acetaminophen 325 MG TAB 650 MG PO (12:40)
[2020-03-01] MEDS: diphenhydrAMINE 25 MG CAP PO (12:40)
[2020-03-01] MEDS: Normal Saline Flush 10 ML SYR IVP (14:00)
== END 2020-03-02 23:59 | disposition home or self-care (01) ==
LOC: INF 01:57
PROVIDERS: Internal Medicine Hematology; PCP Internal Medicine; Visit Provider Nurse Practitioner Family
DX: D46.Z Other myelodysplastic syndromes (principal); Z45.2 Encounter for adjustment and management of vascular access device
CPT/HCPCS: 36430; 36591; 80053; 86850; 86900; 86901; 86920; 86945; 83735; 85025; 86644; P9016; P9035

== ENCOUNTER 2020-03-18 04:52 | Outpatient (CLI) | payer MEDICARE, BC, SELFPAY ==
--- NOTE | 2020-03-18 08:01 | DI.RAD_ITS ---
EXAM: XR CHEST 2V PA LATERAL CLINICAL HISTORY: FEVER, UNKNOWN CAUSE,R50.9 TECHNIQUE: 2D digital imaging was performed. COMPARISON: No exams were available for comparison FINDINGS: MEDIASTINUM: Normal. HEART: Normal. PULMONARY VASCULATURE: Normal. LUNGS: Clear. PLEURAL SPACE: No pleural effusion or pneumothorax. BONE:Within normal limits for the patient's age. OTHER FINDINGS:The tip of the indwelling central venous catheter is in good position at the junction of the superior vena cava and right atrium. IMPRESSION: No acute pulmonary findings. DATA REPOSITORY: RADIATION DOSE DELIVERED:
== END 2020-03-18 05:12 ==
PROVIDERS: PCP Internal Medicine; Visit Provider Internal Medicine Hematology & Oncology
DX: R50.9 Fever, unspecified (principal)
CPT/HCPCS: 71046

== ENCOUNTER 2020-03-24 10:33 | Emergency (ER) | payer MEDICARE, BC, SELFPAY ==
[2020-03-24] VITALS (30 sets, daily range): BP systolic 103–136; BP diastolic 52–81; PULSE 84–205; RESP 13–31; TEMP 36.6–37.6; O2SAT 98–100
--- NOTE | 2020-03-24 10:45 | DI.RAD_ITS ---
EXAM: XR PORTABLE CHEST AP CLINICAL HISTORY: Fever TECHNIQUE: 2D digital imaging was performed. COMPARISON: CR XR CHEST 2V PA LATERAL from 03/18/2020 FINDINGS: Heart size is normal. A port is noted over the chest. Lungs are well inflated and clear. No infilt rate or effusion is seen. IMPRESSION: No acute abnormality.
--- NOTE | 2020-03-24 11:00 | ED.GENADUL_ITS ---
Discharge Plan Disposition Patient Disposition: HOME Condition: Improving Discharge Details Clinical Impression: Anemia, Encounter for blood transfusion Primary Care Provider: Emerson Trujillo ED Provider: Celeste Simms Home Meds and New Rx's Prescriptions: Continued acyclovir 400 mg tablet 400 mg PO BID RF: 0 magnesium oxide 400 mg (241.3 mg magnesium) tablet 400 mg PO DAILY RF: 0 omeprazole 20 mg capsule,delayed release(DR/EC) 20 mg PO .Q600 RF: 0 Discontinued Eliquis 2.5 mg tablet 2.5 mg PO BID RF: 0 Discharge Instructions Instructions: Anemia (ED), Blood Transfusion (DC) Additional Instructions: At this time your lab values have increased to 7.8 and 23.5 please stop the Eliquis. Follow-up on Saturday as previously scheduled. Please return to the ED for any fever, dark tarry stools or blood noted in her stools, abnormal ble eding. Worsening shortness of breath or any concerns. Follow up with primary care provider in 3-5 days. Return to ED sooner if any worsening or concerns. Increase oral fluids. Referrals: Emerson Trujillo [Primary Care Provider] - Discharge Data Discharge Date/Time-TO BE ENTERED AT DEPARTURE: 03/24/20 15:58 Medical Decision Making 70-year-old female presents to the ED with critically low hemoglobin hematocrit of 5.3 and 15.9 platelets are 27. She has a history of myelodysplastic syndrome and a long extensive history of cancer. She was sent here from the infusion clinic. She did receive a unit of PRBCs and a unit of platelets earlier this week. She has no abdominal pain, no nausea vomiting diarrhea. She does report possibly an episode of dark stools earlier in the week. She is currently on Eliquis. At this time 2 units of PRBCs ordered to be infused, PT/INR ordered urinalysis and guaiac stool. This time not a sufficient sample of stool was obtained with a digital rectal exam. Hemoccult is negative at this time. Will consider CT abdomen pelvis to rule out intra-abdominal pathology. 1214: Spoke with Emerson Trujillo MD who recommends repeat H& H after blood infusion and stopping the Eliquis with a plan to recheck patient on Saturday. He does not recommend CT or any imaging at this time. PRBCs are infusing at this time. Informed by staff physical therapy assistant that patient's temp was 98 and bumped up to 99 with the beginning of the infusion. No shortness of breath, no back pain, no chest pain no other symptoms no rash. EXAM: XR PORTABLE CHEST AP CLINICAL HISTORY: Fever TECHNIQUE: 2D digital imaging was performed. COMPARISON: CR XR CHEST 2V PA LATERAL from 03/18/2020 FINDINGS: Heart size is normal. A port is noted over the chest. Lungs are well inflated and clear. No infiltrate or effusion is seen. IMPRESSION: No acute abnormality. 1451: Blood is still infusing patient is receiving her second unit of packed red blood cells at this time. Temperature is 37.2. Patient received 1 g of Tylenol p.o. in department. Will recheck CBC after completion of second unit and make disposition from there. 1512: Blood transfusion is complete, CBC is pending at this time. 1532: Repeat CBC shows hemoglobin of 7.8, hematocrit 23.5 and platelets of 22. Hemoglobin hematocrit been responsive to the 2 units of PRBCs as expected. Platelet count has dropped somewhat. Patient has been as low as 18 in the past on review of labs. At this time I do feel it is safe to discharge home as patient's labs responded to blood transfusion. Will instruct patient to stop the Eliquis as instructed by Dr. Trujillo and have follow-up on Saturday as previously scheduled. Will discuss strict return instructions to return to the ED, verbalized understanding. HPI General Mode of arrival: wheelchair . Date/Time Provider Initiated Documentation: 03/24/20 10:41 . Limitations to Documentation: no limitations . Information obtained by: patient, family and old records reviewed . HPI Narrative: 70-year-old female presents to the ED from infusion center with reports of critically low hemoglobin hematocrit. Blood was drawn today prior to the infusion and patient was noted to have hemoglobin of 5.3 and hematocrit 15.9 this is decreased from previous result of 7.2 and 21.2. Patient has a history of myelodysplastic syndrome and has been receiving recurrent red blood cell transfusions and platelet transfusions in the infusion center. She is being followed by Dr. Flores here with [facility] oncology she reports increased weakness, recently has been requesting the use wheelchair to perform activities of daily living, she states that recent urinalysis showed little bit of blood, she also reports some dark stools recently. She denies any abdominal pain, shortness of breath or chest pain. She has had a past medical history of follicular lymphoma in 2003, left breast cancer 1995, endometrial cancer status post vaginal hysterectomy and the myelodysplastic syndrome. Related Data Home Medications Medication Instructions Recorded Confirmed acyclovir 400 mg PO BID 03/24/20 03/24/20 magnesium oxide 400 mg PO DAILY 03/24/20 03/24/20 omeprazole 20 mg PO .Q600 03/24/20 03/24/20 Allergies Allergy/AdvReac Type Severity Reaction Status Date / Time No Known Allergies Allergy Unverified 03/24/20 10:41 General Stated Complaint: GenMedical SHILPA: 2 Review of Systems Narrative: Constitutional: Negative for weight loss, alert and oriented, well groomed, normal body habitus, appears comfortable. Positive fever HEENT: Denies trauma, headaches, blurry vision, nasal discharge, sore throat, trouble swallowing. Chest: Denies chest pain, palpitations, irregular rhythm, hypertension. Respiratory: Denies Shortness of breath, cough, hemoptysis. GI: Denies abdominal pain, nausea, vomiting, diarrhea, constipation. : Denies dysuria, hematuria, flank pain, rectal bleeding. Neuro: Denies dizziness, blurry vision, syncope, headache or facial numbness. Positive generalized weakness Hematologic: Denies easy bruising, intolerance to heat or cold, hair loss. [facility] Medical History (Updated 03/24/20 @ 15:35 by Celeste Simms) Breast cancer, left Endometrial cancer Follicular lymphoma Social History Smoking/Tobacco Use Status: Never Alcohol Intake: never Drug use: Never Do you feel safe at home: Yes Do you feel safe in your relationship?: Yes Exam Narrative Exam Narrative: Constitutional: Alert and oriented x3. Appears stated age. Normal body habitus. Head: Normocephalic, no trauma. Eyes: Pupils PERRLA, Red reflex noted, EOM's intact. Eyelids symmetrical without lesions, discharge, or swelling. ENT: Bilateral TM's WNL, External ear normal to inspection, no mastoid TTP, swelling, or erythema, Nasal turbinates WNL, no nasal discharge. Normal dentition, Posterior pharynx WNL, no exudate. Chest: RRR, Normal S1, S2, distal pulses intact. Resp: Lungs clear to auscultation bilaterally, no wheezes, rales, or rhonchi. Musculoskeletal: Normal gait, 5/5 strength to all four extremities. Skin: No suspicious rashes or lesions. Capillary refill less than 2 sec. Neurologic: Cranial nerves II-XII intact. Alert and oriented x 3. DTR's intact. Hematologic/Lymphatic: No ecchymosis, no lymphadenopathy. Course Vital Signs Vital signs: Vital Signs Temperature 36.6 C 03/24/20 10:45 Pulse 96 H 03/24/20 10:45 Respiratory Rate 19 03/24/20 10:45 Blood Pressure 120/74 03/24/20 10:45 Pulse Oximetry 100 03/24/20 10:45 Temperature 36.6 C 03/24/20 10:45 Temperature Source Temporal Artery Scan 03/24/20 10:45 Pulse 96 H 03/24/20 10:45 Respiratory Rate 19 03/24/20 10:45 Respiratory Effort Non-Labored 03/24/20 10:53 Blood Pressure 120/74 03/24/20 10:45 Blood Pressure Position Supine 03/24/20 10:45 Pulse Oximetry 100 03/24/20 10:45 Oxygen Delivery Method Room Air 03/24/20 10:45 Oxygen Flow Rate 0 03/24/20 10:45 Pain Level 0 03/24/20 10:45 Lab/Test Results Lab/Test Results: Laboratory Tests Range/Units 03/24/20 10:51 Crossmatch See Detail Procedures Stool Hemoccult Procedural Steps Taken: stool placed in appropriate test area (Not enough sample obtained from SH[facility]), developer placed on stool and control areas and controls appropriately positive and negative Hemoccult result: negative (Questionable appropriate stool sample)
[2020-03-24 11:19] LABS: Bilirubin Negative (Negative); Blood Trace-intact (Negative); Clarity Sl Cloudy (Clear); Glucose Negative (Negative); Ketones Negative (Negative); Leukocyte Esterase Negative (Negative); Nitrite Negative (Negative); Specific Gravity 1.025 (1.005-1.025); Urobilinogen 0.2 EU/dL (Up TO 0.2)
[2020-03-24 11:26] LABS: Bacteria Negative HPF (Negative); C & S Indicated? No; Casts Negative LPF (Negative); Crystals Negative HPF (Negative); Epithelial Cells Rare HPF (Negative); Mucus Trace (Negative); WBC 0-2 HPF (0-5)
[2020-03-24 11:48] LABS: INR 1.1 (0.9-1.1); PTT Activated 23.5 sec (21.0-31.4); Prothrombin Time 10.6 sec (9.3-11.0)
--- NOTE | 2020-03-24 13:02 | NUR.NOTE ---
Provided pt and company with lunch tray.
[2020-03-24] MEDS: Acetaminophen 325 MG TAB (13:41)
[2020-03-24 15:11] LABS: HCT 23.5 % (36.0-46.0); HGB 7.8 g/dL (11.2-15.7); MCHC 33.2 % (32.0-36.0); MCV 84.2 fL (80-95); RBC 2.79 10^6/uL (3.93-5.22); RDW 17.6 % (11.7-14.6); RDW-SD 53.2 fL; WBC 2.51 10^3/uL (4.4-10.8)
[2020-03-24 15:24] LABS: Platelet Count 22 10^3/uL (130-400)
== END 2020-03-24 15:58 | disposition home or self-care (01) ==
PROVIDERS: Emergency Provider Registered Nurse Emergency; PCP Internal Medicine Hematology & Oncology
DX: D46.9 Myelodysplastic syndrome, unspecified (principal); R71.0 Precipitous drop in hematocrit; D69.6 Thrombocytopenia, unspecified; Z95.828 Presence of other vascular implants and grafts; Z79.01 Long term (current) use of anticoagulants
CPT/HCPCS: 36415; 36430; 85027; 86850; 86900; 86901; 86920; 86945; 87040; 99285; 71045; 81003; 81015; 85610; 85730; 86644; P9016

== ENCOUNTER 2020-03-31 10:00 | Outpatient (RCR) | payer MEDICARE, BC, SELFPAY ==
[2020-03-03] VITALS (10 sets, daily range): BP systolic 96–152; BP diastolic 58–85; PULSE 53–96; RESP 18–19; TEMP 36–37; O2SAT 98–100
[2020-03-03] MEDS: Normal Saline Flush 10 ML SYR IVP ×2 (09:28→11:39)
[2020-03-03 09:36] LABS: ALT 28 U/L (14-59); AST 16 U/L (15-37); Albumin 2.6 g/dL (3.4-5.0); Alkaline Phosphatase 143 U/L (46-116); Anion Gap 7.3 mmol/L (3-11); BUN 15 mg/dL (7-18); Bilirubin, Total 0.3 mg/dL (0.2-1.0); CO2 27.7 mmol/L (21.0-32.0); CREATININE 0.66 mg/dL (0.55-1.02); Calcium 8.4 mg/dL (8.5-10.1); Chloride 103 mmol/L (98-107); Glucose 231 mg/dL (74-106); Potassium 3.5 mmol/L (3.5-5.1); Sodium 138 mmol/L (136-145); Total Protein 6.4 g/dL (6.4-8.2)
[2020-03-03 09:37] LABS: Abs Immature Grans 0.01 10^3/uL (0.0-0.06); Absolute Basophil Count 0.01 10^3/uL (0.0-0.2); Absolute Lymphocyte Count 1.15 10^3/uL (1.2-3.4); Absolute Neutrophil Count 1.12 10^3/uL (1.2-6.7); Basophils % 0.4; Immature Grans % 0.4; Lymphocytes % 46.2; MCH 32.4 pg (27.0-33.0); MCHC 33.3 % (32.0-36.0); MCV 97.2 fL (80-95); Nucleated RBC 0 %; Platelet Count 66 10^3/uL (130-400); RBC 2.13 10^6/uL (3.93-5.22); RDW 19.4 % (11.7-14.6); RDW-SD 65.4 fL; WBC 2.49 10^3/uL (4.4-10.8)
[2020-03-03 10:41] LABS: HCT 20.7 % (36.0-46.0); HGB 6.9 g/dL (11.2-15.7)
[2020-03-03 10:42] LABS: Anisocytosis 2+; Hypochromasia 1+; Polychromasia Present
[2020-03-03 15:04] LABS: Diff Comment RBC Morph Reviewed
[2020-03-07] MEDS: Heparin 500 UNITS/5 ML SYRINGE IV (10:20)
[2020-03-07] MEDS: Normal Saline Flush 10 ML SYR IVP (10:20)
[2020-03-07 10:23] LABS: Abs Immature Grans 0.01 10^3/uL (0.0-0.06); Absolute Lymphocyte Count 1.21 10^3/uL (1.2-3.4); Absolute Monocyte Count 0.29 10^3/uL (0.1-0.8); Absolute Neutrophil Count 1.33 10^3/uL (1.2-6.7); HCT 29.3 % (36.0-46.0); Immature Grans % 0.4; Lymphocytes % 42.6; MCHC 34.1 % (32.0-36.0); MCV 90.7 fL (80-95); MPV 10.1 fL (8.0-11.0); Monocytes % 10.2; Neutrophils % 46.8; Nucleated RBC 0 %; RBC 3.23 10^6/uL (3.93-5.22); RDW 18.6 % (11.7-14.6); RDW-SD 59.1 fL; WBC 2.84 10^3/uL (4.4-10.8)
[2020-03-07 10:39] LABS: Anisocytosis 1+; Diff Comment PLT Morph Reviewed; Platelet Count 27 10^3/uL (130-400); Polychromasia Present
[2020-03-07 10:41] LABS: ALT 32 U/L (14-59); AST 21 U/L (15-37); Albumin 2.6 g/dL (3.4-5.0); Alkaline Phosphatase 176 U/L (46-116); Anion Gap 6.8 mmol/L (3-11); BUN 15 mg/dL (7-18); Bilirubin, Total 0.3 mg/dL (0.2-1.0); CO2 31.2 mmol/L (21.0-32.0); CREATININE 0.58 mg/dL (0.55-1.02); Calcium 8.9 mg/dL (8.5-10.1); Chloride 102 mmol/L (98-107); Glucose 104 mg/dL (74-106); Potassium 3.6 mmol/L (3.5-5.1); Sodium 140 mmol/L (136-145); Total Protein 6.7 g/dL (6.4-8.2)
[2020-03-07 13:44] VITALS: BP 128/78; PULSE 80; RESP 18; TEMP 37; O2SAT 100
[2020-03-10] MEDS: Heparin 500 UNITS/5 ML SYRINGE IV (10:14)
[2020-03-10] MEDS: Normal Saline Flush 10 ML SYR IVP (10:14)
[2020-03-10 10:18] LABS: Abs Immature Grans 0.01 10^3/uL (0.0-0.06); Absolute Lymphocyte Count 1.38 10^3/uL (1.2-3.4); Absolute Monocyte Count 0.21 10^3/uL (0.1-0.8); Absolute Neutrophil Count 1.25 10^3/uL (1.2-6.7); HCT 27.1 % (36.0-46.0); Immature Grans % 0.4; Lymphocytes % 48.4; MCHC 33.2 % (32.0-36.0); MCV 90.3 fL (80-95); MPV 11.7 fL (8.0-11.0); Monocytes % 7.4; Neutrophils % 43.8; Nucleated RBC 0 %; RDW 18.1 % (11.7-14.6); RDW-SD 57.2 fL; WBC 2.85 10^3/uL (4.4-10.8)
[2020-03-10 10:40] LABS: ALT 32 U/L (14-59); AST 20 U/L (15-37); Albumin 2.5 g/dL (3.4-5.0); Alkaline Phosphatase 187 U/L (46-116); Anion Gap 8.7 mmol/L (3-11); BUN 18 mg/dL (7-18); Bilirubin, Total 0.3 mg/dL (0.2-1.0); CO2 28.3 mmol/L (21.0-32.0); CREATININE 0.61 mg/dL (0.55-1.02); Calcium 8.9 mg/dL (8.5-10.1); Chloride 101 mmol/L (98-107); Glucose 128 mg/dL (74-106); Potassium 3.7 mmol/L (3.5-5.1); Sodium 138 mmol/L (136-145); Total Protein 6.6 g/dL (6.4-8.2)
[2020-03-10 10:44] LABS: Platelet Count 16 10^3/uL (130-400)
[2020-03-11 09:24] VITALS: BP 182/105; PULSE 107; RESP 18; TEMP 36.1; O2SAT 100
[2020-03-11] MEDS: Acetaminophen 325 MG TAB 650 MG PO (09:24)
[2020-03-11] MEDS: diphenhydrAMINE 25 MG CAP PO (09:24)
[2020-03-11] MEDS: Heparin 500 UNITS/5 ML SYRINGE IV (09:33)
[2020-03-11] MEDS: Normal Saline Flush 10 ML SYR IVP (09:33)
[2020-03-11 10:00] VITALS: BP 134/82; PULSE 102; RESP 18; TEMP 36.9; O2SAT 99
[2020-03-14] MEDS: Normal Saline Flush 10 ML SYR IVP (10:39)
[2020-03-14 10:42] LABS: Abs Immature Grans 0.01 10^3/uL (0.0-0.06); Absolute Lymphocyte Count 1.33 10^3/uL (1.2-3.4); Absolute Monocyte Count 0.19 10^3/uL (0.1-0.8); Absolute Neutrophil Count 1.28 10^3/uL (1.2-6.7); HCT 21.5 % (36.0-46.0); HGB 7.2 g/dL (11.2-15.7); Immature Grans % 0.4; Lymphocytes % 47.3; MCH 30.6 pg (27.0-33.0); MCHC 33.5 % (32.0-36.0); MCV 91.5 fL (80-95); MPV 9.9 fL (8.0-11.0); Monocytes % 6.8; Neutrophils % 45.5; Nucleated RBC 0 %; RBC 2.35 10^6/uL (3.93-5.22); RDW 18.4 % (11.7-14.6); RDW-SD 58.8 fL; WBC 2.81 10^3/uL (4.4-10.8)
[2020-03-14 10:56] LABS: Platelet Count 55 10^3/uL (130-400)
[2020-03-14 10:57] LABS: Anisocytosis 2+; Diff Comment PLT Morph Reviewed
[2020-03-14 11:20] VITALS: BP 106/98; PULSE 94; RESP 18; TEMP 36.8; O2SAT 100
[2020-03-14 11:41] VITALS: BP 125/64; PULSE 90; RESP 16; TEMP 37.7; O2SAT 99
[2020-03-14 11:56] VITALS: BP 120/55; PULSE 87; RESP 17; TEMP 36.9; O2SAT 98
[2020-03-14 13:00] VITALS: BP 120/73; PULSE 93; RESP 17; TEMP 37; O2SAT 99
[2020-03-14 13:30] VITALS: BP 104/79; PULSE 92; RESP 18; TEMP 38; O2SAT 98
[2020-03-17] MEDS: Normal Saline Flush 10 ML SYR IVP (10:16)
[2020-03-17 10:22] LABS: Abs Immature Grans 0.02 10^3/uL (0.0-0.06); Absolute Lymphocyte Count 1.26 10^3/uL (1.2-3.4); Absolute Monocyte Count 0.17 10^3/uL (0.1-0.8); Absolute Neutrophil Count 1.08 10^3/uL (1.2-6.7); HCT 24.5 % (36.0-46.0); HGB 8.1 g/dL (11.2-15.7); Immature Grans % 0.8; Lymphocytes % 49.8; MCH 30.3 pg (27.0-33.0); MCHC 33.1 % (32.0-36.0); MCV 91.8 fL (80-95); MPV 9.8 fL (8.0-11.0); Monocytes % 6.7; Neutrophils % 42.7; Nucleated RBC 0 %; RBC 2.67 10^6/uL (3.93-5.22); RDW 16.8 % (11.7-14.6); RDW-SD 54.1 fL; WBC 2.53 10^3/uL (4.4-10.8)
[2020-03-17 10:37] LABS: Platelet Count 29 10^3/uL (130-400)
[2020-03-17 10:38] LABS: Anisocytosis 1+; Diff Comment PLT Morph Reviewed; Polychromasia Present
[2020-03-17 11:16] LABS: ALT 33 U/L (14-59); AST 19 U/L (15-37); Albumin 2.4 g/dL (3.4-5.0); Alkaline Phosphatase 179 U/L (46-116); Anion Gap 10.6 mmol/L (3-11); BUN 17 mg/dL (7-18); Bilirubin, Total 0.3 mg/dL (0.2-1.0); CO2 26.4 mmol/L (21.0-32.0); CREATININE 0.63 mg/dL (0.55-1.02); Calcium 8.6 mg/dL (8.5-10.1); Chloride 101 mmol/L (98-107); Glucose 185 mg/dL (74-106); Magnesium 1.7 mg/dL (1.8-2.4); Potassium 3.4 mmol/L (3.5-5.1); Sodium 138 mmol/L (136-145); Total Protein 6.5 g/dL (6.4-8.2)
[2020-03-18] VITALS (7 sets, daily range): BP systolic 115–175; BP diastolic 48–160; PULSE 83–96; RESP 18–19; TEMP 36–36.8; O2SAT 99–100
[2020-03-18] MEDS: Normal Saline Flush 10 ML SYR IVP (08:54)
[2020-03-21] MEDS: Normal Saline Flush 10 ML SYR IVP ×2 (10:13→12:29)
[2020-03-21 10:22] LABS: ALT 47 U/L (14-59); AST 29 U/L (15-37); Albumin 2.3 g/dL (3.4-5.0); Alkaline Phosphatase 204 U/L (46-116); Anion Gap 6.3 mmol/L (3-11); BUN 21 mg/dL (7-18); Bilirubin, Total 0.3 mg/dL (0.2-1.0); CO2 28.7 mmol/L (21.0-32.0); CREATININE 0.63 mg/dL (0.55-1.02); Calcium 8.6 mg/dL (8.5-10.1); Chloride 101 mmol/L (98-107); Glucose 159 mg/dL (74-106); Magnesium 1.7 mg/dL (1.8-2.4); Potassium 3.4 mmol/L (3.5-5.1); Sodium 136 mmol/L (136-145); Total Protein 6.3 g/dL (6.4-8.2)
[2020-03-21 10:28] LABS: Abs Immature Grans 0.01 10^3/uL (0.0-0.06); Absolute Lymphocyte Count 1.38 10^3/uL (1.2-3.4); Absolute Monocyte Count 0.18 10^3/uL (0.1-0.8); Absolute Neutrophil Count 1.02 10^3/uL (1.2-6.7); HCT 21.2 % (36.0-46.0); HGB 7.2 g/dL (11.2-15.7); Immature Grans % 0.4; Lymphocytes % 53.3; MCV 91.4 fL (80-95); MPV 10.9 fL (8.0-11.0); Monocytes % 6.9; Neutrophils % 39.4; Nucleated RBC 1 %; RBC 2.32 10^6/uL (3.93-5.22); RDW 16.3 % (11.7-14.6); RDW-SD 52.1 fL; WBC 2.59 10^3/uL (4.4-10.8)
[2020-03-21 10:55] LABS: Diff Comment Diff Reviewed; Hypochromasia 2+; Platelet Count 11 10^3/uL (130-400)
[2020-03-21 11:43] LABS: Bilirubin Negative (Negative); Blood Small (Negative); Clarity Sl Cloudy (Clear); Glucose Negative (Negative); Ketones Negative (Negative); Leukocyte Esterase Negative (Negative); Nitrite Negative (Negative); Urobilinogen 0.2 EU/dL (Up TO 0.2); pH 5.5 (5-8)
[2020-03-21 11:51] LABS: Bacteria Rare HPF (Negative); C & S Indicated? No; Casts Negative LPF (Negative); Crystals Negative HPF (Negative); Epithelial Cells Rare HPF (Negative); Mucus Trace (Negative); WBC 0-2 HPF (0-5)
[2020-03-21 12:20] VITALS: BP 148/65; PULSE 88; RESP 17; TEMP 36.5; O2SAT 100
[2020-03-21 12:42] VITALS: BP 137/84; PULSE 91; RESP 19; TEMP 36.7; O2SAT 100
[2020-03-21 13:10] VITALS: BP 132/66; PULSE 89; RESP 18; TEMP 36.7; O2SAT 100
[2020-03-21 13:27] VITALS: BP 127/78; PULSE 92; RESP 18; TEMP 36.6; O2SAT 100
[2020-03-21 14:18] VITALS: BP 135/83; PULSE 91; RESP 16; TEMP 37; O2SAT 99
[2020-03-22] MEDS: diphenhydrAMINE 25 MG CAP PO (12:56)
[2020-03-22] MEDS: Acetaminophen 325 MG TAB 650 MG PO (12:57)
[2020-03-22] MEDS: Normal Saline Flush 10 ML SYR IVP (12:57)
[2020-03-22 12:58] VITALS: BP 163/93; PULSE 95; RESP 19; TEMP 36.5; O2SAT 100
[2020-03-22 13:29] VITALS: BP 130/74; PULSE 93; RESP 16; TEMP 36.9; O2SAT 99
[2020-03-24] MEDS: Normal Saline Flush 10 ML SYR IVP (09:47)
[2020-03-24 09:55] LABS: Abs Immature Grans 0.01 10^3/uL (0.0-0.06); Absolute Lymphocyte Count 1.47 10^3/uL (1.2-3.4); Absolute Monocyte Count 0.16 10^3/uL (0.1-0.8); Absolute Neutrophil Count 1.06 10^3/uL (1.2-6.7); Immature Grans % 0.4; Lymphocytes % 54.4; MCH 29.4 pg (27.0-33.0); MCHC 33.3 % (32.0-36.0); MCV 88.3 fL (80-95); MPV 9.6 fL (8.0-11.0); Monocytes % 5.9; Neutrophils % 39.3; Nucleated RBC 1 %; RDW 16.3 % (11.7-14.6); RDW-SD 50.8 fL
[2020-03-24 10:13] LABS: ALT 44 U/L (14-59); AST 24 U/L (15-37); Albumin 2.3 g/dL (3.4-5.0); Alkaline Phosphatase 240 U/L (46-116); Anion Gap 6.4 mmol/L (3-11); BUN 20 mg/dL (7-18); Bilirubin, Total 0.3 mg/dL (0.2-1.0); CO2 27.6 mmol/L (21.0-32.0); CREATININE 0.54 mg/dL (0.55-1.02); Calcium 8.3 mg/dL (8.5-10.1); Chloride 102 mmol/L (98-107); Glucose 145 mg/dL (74-106); Magnesium 1.7 mg/dL (1.8-2.4); Potassium 3.5 mmol/L (3.5-5.1); Sodium 136 mmol/L (136-145); Total Protein 6.1 g/dL (6.4-8.2)
[2020-03-24 10:18] LABS: HCT 15.9 % (36.0-46.0); HGB 5.3 g/dL (11.2-15.7)
[2020-03-24 10:19] LABS: Diff Comment RBC Morph Reviewed; Platelet Count 27 10^3/uL (130-400)
[2020-03-28] VITALS (15 sets, daily range): BP systolic 118–152; BP diastolic 63–89; PULSE 86–107; RESP 16–21; TEMP 35.9–37; O2SAT 97–100
[2020-03-28] MEDS: Normal Saline Flush 10 ML SYR IVP (09:38)
[2020-03-28 09:55] LABS: Abs Immature Grans 0.02 10^3/uL (0.0-0.06); Absolute Basophil Count 0.01 10^3/uL (0.0-0.2); Absolute Monocyte Count 0.13 10^3/uL (0.1-0.8); Absolute Neutrophil Count 0.78 10^3/uL (1.2-6.7); Basophils % 0.5; Lymphocytes % 53.9; MCH 27.5 pg (27.0-33.0); MCHC 32.3 % (32.0-36.0); MPV 10.4 fL (8.0-11.0); Monocytes % 6.4; Neutrophils % 38.2; RBC 2.33 10^6/uL (3.93-5.22); RDW 16.4 % (11.7-14.6); RDW-SD 50.7 fL; WBC 2.04 10^3/uL (4.4-10.8)
[2020-03-28 10:01] LABS: ALT 40 U/L (14-59); AST 25 U/L (15-37); Albumin 2.3 g/dL (3.4-5.0); Alkaline Phosphatase 253 U/L (46-116); Anion Gap 5.9 mmol/L (3-11); BUN 16 mg/dL (7-18); Bilirubin, Total 0.2 mg/dL (0.2-1.0); CO2 28.1 mmol/L (21.0-32.0); CREATININE 0.55 mg/dL (0.55-1.02); Calcium 8.3 mg/dL (8.5-10.1); Chloride 102 mmol/L (98-107); Glucose 157 mg/dL (74-106); Magnesium 1.9 mg/dL (1.8-2.4); Potassium 3.4 mmol/L (3.5-5.1); Sodium 136 mmol/L (136-145)
[2020-03-28 10:14] LABS: HCT 19.8 % (36.0-46.0); Platelet Count 9 10^3/uL (130-400)
[2020-03-28 10:15] LABS: HGB 6.4 g/dL (11.2-15.7)
[2020-03-28 10:16] LABS: Diff Comment Manual Differential; Hypochromasia 1+; Microcytosis 1+; Nucleated RBC 1 %
[2020-03-28] MEDS: Acetaminophen 325 MG TAB 650 MG PO (13:48)
[2020-03-28] MEDS: diphenhydrAMINE 25 MG CAP PO (13:48)
[2020-03-31] MEDS: Normal Saline Flush 10 ML SYR IVP (10:03)
[2020-03-31 10:21] LABS: Abs Immature Grans 0.01 10^3/uL (0.0-0.06); Absolute Lymphocyte Count 0.95 10^3/uL (1.2-3.4); Absolute Monocyte Count 0.15 10^3/uL (0.1-0.8); Absolute Neutrophil Count 0.78 10^3/uL (1.2-6.7); HCT 26.5 % (36.0-46.0); HGB 8.8 g/dL (11.2-15.7); Immature Grans % 0.5; Lymphocytes % 50.3; MCHC 33.2 % (32.0-36.0); MCV 87.5 fL (80-95); MPV 12.7 fL (8.0-11.0); Monocytes % 7.9; Neutrophils % 41.3; Nucleated RBC 0 %; RBC 3.03 10^6/uL (3.93-5.22); RDW 14.6 % (11.7-14.6); RDW-SD 46.8 fL
[2020-03-31 10:35] LABS: WBC 1.89 10^3/uL (4.4-10.8)
[2020-03-31 10:37] LABS: Platelet Count 9 10^3/uL (130-400)
[2020-03-31 10:38] LABS: Diff Comment Diff Reviewed; Polychromasia Present
[2020-03-31 13:57] VITALS: BP 158/90; PULSE 95; RESP 18; TEMP 36.7; O2SAT 100
[2020-03-31] MEDS: Acetaminophen 325 MG TAB 650 MG PO (14:08)
[2020-03-31] MEDS: diphenhydrAMINE 25 MG CAP PO (14:08)
[2020-03-31 14:39] VITALS: BP 153/80; PULSE 94; RESP 18; TEMP 36.7; O2SAT 100
== END 2020-04-02 23:59 | disposition home or self-care (01) ==
LOC: INF 10:00
PROVIDERS: Nurse Practitioner Family; PCP Internal Medicine; Visit Provider Internal Medicine Hematology & Oncology
DX: D46.Z Other myelodysplastic syndromes (principal); R50.9 Fever, unspecified; Z45.2 Encounter for adjustment and management of vascular access device; D69.6 Thrombocytopenia, unspecified; Z95.828 Presence of other vascular implants and grafts; Z79.01 Long term (current) use of anticoagulants; R71.0 Precipitous drop in hematocrit
CPT/HCPCS: 36415; 36430; 36591; 80053; 85027; 86850; 86900; 86901; 86920; 86945; 87040; 99285; 71045; 71046; 81003; 81015; 83735; 85025; 85610; 85730; 86644; P9016; P9035

== ENCOUNTER 2020-05-01 12:45 | Emergency (ER) | payer MEDICARE, BC, SELFPAY ==
[2020-05-01 12:52] VITALS: BP 149/53; PULSE 105; RESP 16; TEMP 36.6; O2SAT 100
--- NOTE | 2020-05-01 12:53 | ED.GENADUL_ITS ---
Discharge Plan Disposition Patient Disposition: HOME Condition: Stable Discharge Details Clinical Impression: Myelodysplastic syndrome, Thrombocytopenia, Anemia, Bruising, spontaneous Primary Care Provider: Kristine Franklin ED Provider: Lillie Walker Home Meds and New Rx's Prescriptions: Continued acyclovir 400 mg tablet 400 mg PO BID RF: 0 magnesium oxide 400 mg (241.3 mg magnesium) tablet 400 mg PO DAILY RF: 0 omeprazole 20 mg capsule,delayed release(DR/EC) 20 mg PO .Q600 RF: 0 levofloxacin 500 mg Tablet 500 mg PO .NOON DAILY RF: 0 Discharge Instructions Additional Instructions: Your hemoglobin was 7 today, platelet count 28. I did speak with oncology. They did advise that he should have blood transfusion but that this could occur either today or tomorrow. You have elected to have this as an outpatient tomorrow. Please follow-up as previously scheduled. If you develop increased evidence of bleeding such as blood in your stool, blood in your urine, vomiting bladder or other new/worsening symptoms please seek care urgently once again. Referrals: Kristine Franklin [Primary Care Provider] - Discharge Data Discharge Date/Time-TO BE ENTERED AT DEPARTURE: 05/01/20 14:58 Medical Decision Making Patient is a pleasant 70 year old female presenting today with c/c of spontaneous bruising. She hashx of myelodysplastic syndrome. She is receiving treatment at [facility]. She reports that she last received platelet transfusion on Saturday. She reports that she has increased fatigue recently but feels this is associated with her anemia. States she is shcedule to have CBC with likely transfusion tomorrow. Patient requires i rradiated blood products. She reports chronic SOB associated with anemia. No change in this. Denies CP. Denies bleeding elsewhere. Ptient has a focal area of ecchymosis around medial aspect of right eye. She does not have any eye involvement. I do not see bruising elsewhere. Abdomen is benign. No petechea. Plan to repeat blood work and consider transfusion if needed. Contacted by lab, they have 2 units irradiated RBC but no platelets. They advised they may not be able ot get these today. Consulted with Dr. Kilpatrick [facility] hemotology oncology. Reviewed the lab results and presentation. He knew of the patients history, had spoke with her this morning. He advised that ideally, platelets would be >30 but that she did not need emergent platelet transfusion at this time, particularly as we do not have any currently. He advised that patient is d/t f/u with her [facility] tomorrow. He feels that the patient can also wait to have RBC transfusion till tomorrow based on her preference. If we transfuse today, advised only one unti. Discussed this with the patient. She would prefer to hold off until tomorrow to have the transfusion completed in the transfusion clinic. I did reach out to leeann cordova supervisor publications who will pass along that patient had blood work completed today. She will pass along that patient has had CBC today. She is scheduled to follow up tomorrow. Strict return precautions were given. In particular, we discussed evidence of increased bleeding. All of her quesitons and concerns were addressed, she is in agreement with this plan. HPI General Mode of arrival: ambulatory . Date/Time Provider Initiated Documentation: 05/01/20 12:52 . Limitations to Documentation: no limitations . Information obtained by: patient and RN notes reviewed . HPI Narrative: Patient is a pleasant 70 year old female presnting today with concern for spontaneous bruising around her right eye. States that she noticed this after watching TV several hours prior to arrival. She denies any trauma. No visual changes. Denies any pain or trauma. No blood in her stool, urine, from her gums. No N/V/D. Patient has hx of myelodyspastic syndrome. She has needed weekly transfusions of irradiated RBC and platelets. Last received platelets 2 days ago. She is concerned she needs more. She was advised to f/u immediately if evidence of bleeding by heme/onc. Related Data Home Medications Medication Instructions Recorded Confirmed acyclovir 400 mg PO BID 03/24/20 05/01/20 magnesium oxide 400 mg PO DAILY 03/24/20 05/01/20 omeprazole 20 mg PO .Q600 03/24/20 05/01/20 levofloxacin 500 mg PO .NOON DAILY 05/01/20 05/01/20 Allergies Allergy/AdvReac Type Severity Reaction Status Date / Time No Known Allergies Allergy Unverified 05/01/20 12:57 General SHILPA: 2 Review of Systems Constitutional Constitutional: Reports as per HPI, Denies chills, Denies fatigue, Denies fever(s) and Denies headache(s) Eyes Eyes: Reports as per HPI ENT Ears, Nose, Mouth, and Throat: Denies headache(s) Cardiovascular Cardiovascular: Reports as per HPI, Denies chest pain and Denies dyspnea Respiratory Respiratory: Reports as per HPI, Denies cough and Denies dyspnea Gastrointestinal Gastrointestinal: Reports as per HPI Musculoskeletal Musculoskeletal: Reports as per HPI and Denies back pain Integumentary/Breasts Skin/Breast: Reports as per HPI and Denies rash Neurologic Neurologic: Reports as per HPI and Denies headache(s) Endocrine Endocrine: Denies fatigue Hematologic/Lymphatic Hematologic/Lymphatic: Reports as per HPI and Reports easy bruising ON LICENSE OF [facility] Medical History (Updated 05/01/20 @ 14:20 by DIANNA Byrnes) Breast cancer, left Endometrial cancer Follicular lymphoma Social History Smoking/Tobacco Use Status: Never Smoking risk assessment performed?: Yes Alcohol Intake: never Drug use: Never Do you feel safe at home: Yes Do you feel safe in your relationship?: Yes Exam Const General: cooperative, healthy appearing, comfortable, no acute distress and well developed Nutritional Appearance: average body habitus and well nourished Orientation: alert and awake [facility] Head: normal to inspection, no palpable skull fracture and normocephalic Ears: hearing grossly normal bilaterally General nose exam: external nose normal Face images: 1. area of ecchymosis. No bleeding. Minimal area of swelling at upper most aspect. There is a focal area 5mm in diameter that appears to be starting point of ecchymosis. No eye involvement. No swelling of the eye lid. Mouth: moist mucous membranes Resp Effort & Inspection: normal respiratory effort, able to speak in complete sentences and no respiratory distress Auscultation: clear to auscultation bilaterally, no rales, no rhonchi and no wheezes Cardio Rate: regular rate Rhythm: regular rhythm Heart Sounds: S1 normal and S2 normal GI Inspection: normal to inspection Palpation: soft, not rigid and nontender Back/Spine/Pelvis Back: no CVA tenderness Skin General skin exam: no rashes or lesions noted Trauma: no lacerations or abrasions Neuro General: patient alert and patient awake Cognition: normal cognition Speech: speech normal Gait: normal gait Psych Appearance: grossly normal and well kempt Mental Status: mental status grossly normal Speech and Movement: speech and movement normal
[2020-05-01 13:28] VITALS: RESP 16
[2020-05-01 13:31] LABS: Abs Immature Grans 0.03 10^3/uL (0.0-0.06); MCH 29.8 pg (27.0-33.0); MCHC 33.8 % (32.0-36.0); MCV 88.1 fL (80-95); Neutrophils % 17.6; Nucleated RBC 0 %; RBC 2.35 10^6/uL (3.93-5.22); RDW 13.1 % (11.7-14.6); RDW-SD 41.3 fL
[2020-05-01 13:39] LABS: HCT 20.7 % (36.0-46.0)
[2020-05-01 13:40] LABS: Absolute Neutrophil Count 0.22 10^3/uL (1.2-6.7)
[2020-05-01 13:44] LABS: ALT 31 U/L (14-59); AST 23 U/L (15-37); Albumin 2.7 g/dL (3.4-5.0); Alkaline Phosphatase 212 U/L (46-116); Anion Gap 6.3 mmol/L (3-11); BUN 15 mg/dL (7-18); Bilirubin, Total 0.3 mg/dL (0.2-1.0); CO2 27.7 mmol/L (21.0-32.0); CREATININE 0.71 mg/dL (0.55-1.02); Chloride 103 mmol/L (98-107); Glucose 241 mg/dL (74-106); Potassium 3.6 mmol/L (3.5-5.1); Sodium 137 mmol/L (136-145); Total Protein 6.3 g/dL (6.4-8.2)
[2020-05-01 13:55] LABS: Diff Comment Agrees w/ Instrument; Hypochromasia 2+; Polychromasia Present
[2020-05-01 13:56] LABS: WBC 1.25 10^3/uL (4.4-10.8)
[2020-05-01 13:57] LABS: Platelet Count 28 10^3/uL (130-400)
[2020-05-01 14:58] VITALS: PULSE 86; RESP 16
== END 2020-05-01 14:58 | disposition home or self-care (01) ==
PROVIDERS: Emergency Provider Physician Assistant; PCP Internal Medicine
DX: D69.6 Thrombocytopenia, unspecified (principal); D46.9 Myelodysplastic syndrome, unspecified; D60.9 Acquired pure red cell aplasia, unspecified; Z45.2 Encounter for adjustment and management of vascular access device
CPT/HCPCS: 36591; 80053; 86850; 86900; 86901; 99284; 85025

== ENCOUNTER 2020-05-02 10:00 | Outpatient (RCR) | payer MEDICARE, BC, SELFPAY ==
[2020-04-04] MEDS: Normal Saline Flush 10 ML SYR IVP (10:09)
[2020-04-04 10:20] LABS: HCT 24.6 % (36.0-46.0); HGB 8.1 g/dL (11.2-15.7); MCH 29.2 pg (27.0-33.0); MCHC 32.9 % (32.0-36.0); MCV 88.8 fL (80-95); MPV 12.2 fL (8.0-11.0); Nucleated RBC 0 %; RBC 2.77 10^6/uL (3.93-5.22); RDW 14.3 % (11.7-14.6); RDW-SD 46.3 fL
[2020-04-04 10:51] LABS: Absolute Lymphocyte Count 1.09 10^3/uL (1.2-3.4)
[2020-04-04 10:52] LABS: Absolute Monocyte Count 0.07 10^3/uL (0.1-0.8)
[2020-04-04 11:49] LABS: Platelet Count 10 10^3/uL (130-400); WBC 1.71 10^3/uL (4.4-10.8)
[2020-04-04 11:50] LABS: Diff Comment Manual Differential; RBC Morphology Normal
[2020-04-04 11:51] LABS: Absolute Neutrophil Count 0.55 10^3/uL (1.2-6.7)
[2020-04-04] MEDS: diphenhydrAMINE 25 MG CAP PO (14:20)
[2020-04-04] MEDS: Acetaminophen 325 MG TAB 650 MG PO (14:21)
[2020-04-04 14:37] VITALS: BP 140/72; PULSE 92; RESP 18; TEMP 37.1; O2SAT 99
[2020-04-04 14:55] VITALS: BP 127/76; PULSE 93; RESP 14; TEMP 36.6; O2SAT 100
[2020-04-07 10:01] LABS: Abs Immature Grans 0.01 10^3/uL (0.0-0.06); Absolute Lymphocyte Count 1.07 10^3/uL (1.2-3.4); Absolute Monocyte Count 0.13 10^3/uL (0.1-0.8); Absolute Neutrophil Count 0.51 10^3/uL (1.2-6.7); HCT 22.9 % (36.0-46.0); HGB 7.3 g/dL (11.2-15.7); Immature Grans % 0.6; Lymphocytes % 62.2; MCH 28.4 pg (27.0-33.0); MCHC 31.9 % (32.0-36.0); MCV 89.1 fL (80-95); MPV 10.1 fL (8.0-11.0); Monocytes % 7.6; Neutrophils % 29.6; Nucleated RBC 0 %; RBC 2.57 10^6/uL (3.93-5.22); RDW 14.2 % (11.7-14.6); RDW-SD 45.1 fL
[2020-04-07 10:27] LABS: WBC 1.72 10^3/uL (4.4-10.8)
[2020-04-07 10:28] LABS: Diff Comment Diff Reviewed; Platelet Count 40 10^3/uL (130-400)
[2020-04-07 11:49] VITALS: BP 124/77; PULSE 94; RESP 15; TEMP 36.5; O2SAT 100
[2020-04-07 12:15] VITALS: BP 124/77; PULSE 94; RESP 16; TEMP 36.5; O2SAT 100
[2020-04-07 13:45] VITALS: BP 114/56; PULSE 95; RESP 18; TEMP 36.6; O2SAT 100
[2020-04-07] MEDS: Normal Saline Flush 10 ML SYR IVP (14:05)
[2020-04-11] MEDS: Normal Saline Flush 10 ML SYR IVP ×3 (09:56→20:00)
[2020-04-11 10:14] LABS: Abs Immature Grans 0.01 10^3/uL (0.0-0.06); Absolute Basophil Count 0.01 10^3/uL (0.0-0.2); Basophils % 0.6; HCT 26.1 % (36.0-46.0); HGB 8.7 g/dL (11.2-15.7); Immature Grans % 0.6; Lymphocytes % 62.5; MCH 29.6 pg (27.0-33.0); MCHC 33.3 % (32.0-36.0); MCV 88.8 fL (80-95); MPV 11.7 fL (8.0-11.0); Monocytes % 6.3; Nucleated RBC 0 %; RBC 2.94 10^6/uL (3.93-5.22); RDW 13.5 % (11.7-14.6); RDW-SD 43.4 fL
[2020-04-11 10:50] LABS: Absolute Neutrophil Count 0.48 10^3/uL (1.2-6.7); Platelet Count 6 10^3/uL (130-400)
[2020-04-11 10:51] LABS: Diff Comment Agrees w/ Instrument; Hypochromasia 2+
[2020-04-11] MEDS: diphenhydrAMINE 25 MG CAP PO (14:17)
[2020-04-11] MEDS: Acetaminophen 325 MG TAB 650 MG PO (14:18)
[2020-04-11 14:57] VITALS: BP 146/75; PULSE 86; RESP 18; TEMP 37; O2SAT 99
[2020-04-11 19:29] VITALS: BP 131/89; PULSE 84; RESP 14; TEMP 36.5; O2SAT 98
[2020-04-11 19:44] VITALS: BP 130/84; PULSE 86; RESP 16; TEMP 36.4; O2SAT 100
[2020-04-11 20:03] VITALS: BP 148/82; PULSE 88; RESP 17; TEMP 37; O2SAT 100
[2020-04-14] MEDS: Normal Saline Flush 10 ML SYR IVP ×2 (08:50→11:49)
[2020-04-14 10:17] LABS: Abs Immature Grans 0.01 10^3/uL (0.0-0.06); Absolute Lymphocyte Count 1.01 10^3/uL (1.2-3.4); HCT 23.5 % (36.0-46.0); HGB 7.8 g/dL (11.2-15.7); Immature Grans % 0.7; Lymphocytes % 68.7; MCH 29.4 pg (27.0-33.0); MCHC 33.2 % (32.0-36.0); MCV 88.7 fL (80-95); MPV 8.9 fL (8.0-11.0); Monocytes % 6.8; Neutrophils % 23.8; RBC 2.65 10^6/uL (3.93-5.22); RDW 13.5 % (11.7-14.6); RDW-SD 43.2 fL
[2020-04-14 10:42] LABS: Absolute Neutrophil Count 0.35 10^3/uL (1.2-6.7); WBC 1.47 10^3/uL (4.4-10.8)
[2020-04-14 10:43] LABS: Diff Comment Agrees w/ Instrument; Platelet Count 34 10^3/uL (130-400)
[2020-04-14 10:44] LABS: Nucleated RBC 1 %; RBC Morphology Normal
[2020-04-14 11:54] VITALS: BP 160/91; PULSE 96; RESP 20; TEMP 36.9; O2SAT 100
[2020-04-14 12:02] VITALS: BP 135/77; PULSE 99; RESP 18; TEMP 37.3; O2SAT 100
[2020-04-14 12:17] VITALS: BP 125/74; PULSE 92; RESP 17; TEMP 37.5; O2SAT 100
[2020-04-14 12:47] VITALS: BP 126/72; PULSE 93; RESP 16; TEMP 36.8; O2SAT 100
[2020-04-14 13:41] VITALS: BP 144/78; PULSE 91; RESP 18; TEMP 37.5; O2SAT 100
[2020-04-18 10:19] LABS: Abs Immature Grans 0.01 10^3/uL (0.0-0.06); Absolute Lymphocyte Count 0.99 10^3/uL (1.2-3.4); Absolute Monocyte Count 0.08 10^3/uL (0.1-0.8); HCT 26.2 % (36.0-46.0); HGB 8.9 g/dL (11.2-15.7); Immature Grans % 0.7; Lymphocytes % 72.3; MCH 30.5 pg (27.0-33.0); MCV 89.7 fL (80-95); MPV 10.3 fL (8.0-11.0); Monocytes % 5.8; Neutrophils % 21.2; Nucleated RBC 0 %; RBC 2.92 10^6/uL (3.93-5.22); RDW 13.7 % (11.7-14.6); RDW-SD 44.7 fL
[2020-04-18 10:50] LABS: Absolute Neutrophil Count 0.29 10^3/uL (1.2-6.7); Platelet Count 6 10^3/uL (130-400); WBC 1.37 10^3/uL (4.4-10.8)
[2020-04-18 10:51] LABS: Diff Comment Diff Reviewed; RBC Morphology Normal
[2020-04-18 11:32] VITALS: BP 144/78; PULSE 91; RESP 18; TEMP 37.5; O2SAT 100
[2020-04-18 13:52] VITALS: BP 188/73; PULSE 94; RESP 18; TEMP 37.4; O2SAT 100
[2020-04-18] MEDS: Acetaminophen 325 MG TAB 650 MG PO (14:10)
[2020-04-18] MEDS: diphenhydrAMINE 25 MG CAP PO (14:10)
[2020-04-18] MEDS: Normal Saline Flush 10 ML SYR IVP ×2 (14:11→14:29)
[2020-04-18 14:50] VITALS: BP 101/65; PULSE 98; RESP 18; TEMP 36.8; O2SAT 99
[2020-04-21] MEDS: Normal Saline Flush 10 ML SYR IVP ×2 (09:20→12:25)
[2020-04-21 09:29] LABS: Abs Immature Grans 0.01 10^3/uL (0.0-0.06); Absolute Lymphocyte Count 0.92 10^3/uL (1.2-3.4); Absolute Monocyte Count 0.08 10^3/uL (0.1-0.8); HCT 23.2 % (36.0-46.0); HGB 7.9 g/dL (11.2-15.7); Immature Grans % 0.8; Lymphocytes % 72.4; MCH 30.7 pg (27.0-33.0); MCHC 34.1 % (32.0-36.0); MCV 90.3 fL (80-95); MPV 9.1 fL (8.0-11.0); Monocytes % 6.3; Neutrophils % 20.5; RBC 2.57 10^6/uL (3.93-5.22); RDW 13.6 % (11.7-14.6); RDW-SD 44.9 fL
[2020-04-21 09:52] LABS: Absolute Neutrophil Count 0.26 10^3/uL (1.2-6.7); WBC 1.27 10^3/uL (4.4-10.8)
[2020-04-21 09:53] LABS: Nucleated RBC 1 %; Platelet Count 30 10^3/uL (130-400)
[2020-04-21 09:54] LABS: Diff Comment Agrees w/ Instrument; Polychromasia Present
[2020-04-21 12:22] VITALS: BP 142/73; PULSE 86; RESP 18; TEMP 37; O2SAT 100
[2020-04-21 12:42] VITALS: BP 171/98; PULSE 93; RESP 18; TEMP 36.8; O2SAT 100
[2020-04-21 12:43] VITALS: BP 158/82; PULSE 88; RESP 18; TEMP 36.6; O2SAT 100
[2020-04-21 12:44] VITALS: BP 142/80; PULSE 87; RESP 17; TEMP 36.9; O2SAT 100
[2020-04-21 12:55] VITALS: BP 137/78; PULSE 88; RESP 18; TEMP 37; O2SAT 100
[2020-04-25] VITALS (9 sets, daily range): BP systolic 78–156; BP diastolic 48–77; PULSE 84–97; RESP 17–18; TEMP 36.4–37.1; O2SAT 97–100
[2020-04-25] MEDS: Normal Saline Flush 10 ML SYR IVP ×2 (09:00→11:17)
[2020-04-25 10:30] LABS: Abs Immature Grans 0.03 10^3/uL (0.0-0.06); Absolute Basophil Count 0.01 10^3/uL (0.0-0.2); Absolute Lymphocyte Count 1.04 10^3/uL (1.2-3.4); Basophils % 0.7; HCT 22.9 % (36.0-46.0); HGB 7.8 g/dL (11.2-15.7); Immature Grans % 2.2; Lymphocytes % 74.8; MCHC 34.1 % (32.0-36.0); MCV 88.1 fL (80-95); MPV 8.9 fL (8.0-11.0); Monocytes % 7.2; Neutrophils % 15.1; Nucleated RBC 0 %; RDW 13.2 % (11.7-14.6); RDW-SD 42.5 fL
[2020-04-25 11:00] LABS: Absolute Neutrophil Count 0.21 10^3/uL (1.2-6.7); WBC 1.39 10^3/uL (4.4-10.8)
[2020-04-25 11:01] LABS: Platelet Count 4 10^3/uL (130-400)
[2020-04-25 11:02] LABS: Diff Comment Diff Reviewed
[2020-04-25] MEDS: Acetaminophen 325 MG TAB 650 MG PO (14:02)
[2020-04-25] MEDS: diphenhydrAMINE 25 MG CAP PO (14:02)
[2020-04-29] MEDS: Normal Saline Flush 10 ML SYR IVP (10:11)
[2020-04-29 10:33] LABS: HCT 24.2 % (36.0-46.0); HGB 8.3 g/dL (11.2-15.7); MCH 29.5 pg (27.0-33.0); MCHC 34.3 % (32.0-36.0); MCV 86.1 fL (80-95); MPV 9.8 fL (8.0-11.0); Nucleated RBC 0 %; RBC 2.81 10^6/uL (3.93-5.22); RDW 13.2 % (11.7-14.6); RDW-SD 41.3 fL
[2020-04-29 11:02] LABS: Platelet Count 8 10^3/uL (130-400); WBC 1.36 10^3/uL (4.4-10.8)
[2020-04-29 11:03] LABS: Absolute Lymphocyte Count 1.03 10^3/uL (1.2-3.4); Absolute Monocyte Count 0.05 10^3/uL (0.1-0.8); Absolute Neutrophil Count 0.26 10^3/uL (1.2-6.7); Blastocytes % 1
[2020-04-29 11:04] LABS: Anisocytosis 1+; Diff Comment Manual Differential; Polychromasia Present
[2020-04-29 14:01] VITALS: BP 128/63; PULSE 97; RESP 18; TEMP 36.9; O2SAT 98
[2020-04-29] MEDS: diphenhydrAMINE 25 MG CAP PO (14:04)
[2020-04-29] MEDS: Acetaminophen 325 MG TAB 650 MG PO (14:04)
[2020-04-29 15:18] VITALS: BP 100/56; PULSE 93; RESP 16; TEMP 37.1; O2SAT 99
[2020-05-02 11:13] VITALS: BP 128/78; PULSE 92; RESP 18; TEMP 37; O2SAT 100
[2020-05-02 11:14] VITALS: BP 126/72; PULSE 90; RESP 17; TEMP 37; O2SAT 100
[2020-05-02 11:29] VITALS: BP 131/63; PULSE 92; RESP 18; TEMP 37; O2SAT 100
[2020-05-02 11:44] VITALS: BP 118/59; PULSE 85; RESP 17; TEMP 36.9; O2SAT 100
[2020-05-02 12:14] VITALS: BP 131/60; PULSE 93; RESP 18; TEMP 36.7; O2SAT 99
[2020-05-02 12:44] VITALS: BP 123/63; PULSE 91; RESP 18; TEMP 36.7; O2SAT 100
[2020-05-02] MEDS: Normal Saline Flush 10 ML SYR IVP (13:04)
[2020-05-03 11:17] LABS: Misc Referral (DHMC) See Comments
== END 2020-05-02 23:59 | disposition home or self-care (01) ==
LOC: INF 10:00
PROVIDERS: PCP Internal Medicine; Visit Provider Internal Medicine Hematology & Oncology
DX: D46.Z Other myelodysplastic syndromes (principal); Z45.2 Encounter for adjustment and management of vascular access device
CPT/HCPCS: 36430; 36591; 80053; 81450; 86850; 86900; 86901; 86920; 86945; 99284; 85025; 86644; P9016; P9035

== ENCOUNTER 2020-06-02 02:24 | Outpatient (RCR) | payer MEDICARE, BC, SELFPAY ==
[2020-05-05] MEDS: Normal Saline Flush 10 ML SYR IVP (10:12)
[2020-05-05 10:32] LABS: HCT 21.9 % (36.0-46.0); HGB 7.3 g/dL (11.2-15.7); MCH 29.3 pg (27.0-33.0); MCHC 33.3 % (32.0-36.0); RBC 2.49 10^6/uL (3.93-5.22); RDW 12.8 % (11.7-14.6); RDW-SD 41.1 fL
[2020-05-05 10:43] LABS: ALT 23 U/L (14-59); AST 15 U/L (15-37); Albumin 2.7 g/dL (3.4-5.0); Alkaline Phosphatase 184 U/L (46-116); Anion Gap 7.1 mmol/L (3-11); BUN 21 mg/dL (7-18); Bilirubin, Total 0.3 mg/dL (0.2-1.0); CO2 27.9 mmol/L (21.0-32.0); CREATININE 0.68 mg/dL (0.55-1.02); Calcium 8.3 mg/dL (8.5-10.1); Chloride 103 mmol/L (98-107); Glucose 186 mg/dL (74-106); Magnesium 1.6 mg/dL (1.8-2.4); Potassium 3.5 mmol/L (3.5-5.1); Sodium 138 mmol/L (136-145); Total Protein 6.4 g/dL (6.4-8.2)
[2020-05-05 11:09] LABS: Platelet Count 3 10^3/uL (130-400); WBC 1.31 10^3/uL (4.4-10.8)
[2020-05-05 11:11] LABS: Absolute Lymphocyte Count 0.97 10^3/uL (1.2-3.4); Absolute Monocyte Count 0.05 10^3/uL (0.1-0.8); Absolute Neutrophil Count 0.16 10^3/uL (1.2-6.7); Bands % 2; Metamyelocytes % 2; Myelocytes % 2; Nucleated RBC 0 %
[2020-05-05 11:12] LABS: Blastocytes % 6
[2020-05-05 11:13] LABS: Diff Comment Manual Differential; RBC Morphology Normal
[2020-05-05 13:20] VITALS: BP 119/80; PULSE 91; RESP 16; TEMP 38.1; O2SAT 100
[2020-05-05 13:35] VITALS: BP 118/74; BP 119/80; PULSE 85; PULSE 91; RESP 16; TEMP 37.9; TEMP 38.1; O2SAT 100
[2020-05-05] MEDS: diphenhydrAMINE 25 MG CAP PO (14:15)
[2020-05-05 15:00] VITALS: BP 102/67; PULSE 83; RESP 20; TEMP 37.9; O2SAT 99
[2020-05-05 15:02] VITALS: BP 93/54; PULSE 96; RESP 16; TEMP 37.6; O2SAT 98
[2020-05-05 15:35] VITALS: BP 134/85; PULSE 91; RESP 18; TEMP 38.1; O2SAT 100
[2020-05-09 10:03] LABS: Abs Immature Grans 0.05 10^3/uL (0.0-0.06); HCT 23.8 % (36.0-46.0); HGB 7.9 g/dL (11.2-15.7); MCH 28.9 pg (27.0-33.0); MCHC 33.2 % (32.0-36.0); MCV 87.2 fL (80-95); MPV 9.4 fL (8.0-11.0); Nucleated RBC 0 %; RBC 2.73 10^6/uL (3.93-5.22); RDW 13.3 % (11.7-14.6); RDW-SD 42.2 fL
[2020-05-09 10:39] LABS: Absolute Lymphocyte Count 1.16 10^3/uL (1.2-3.4); Absolute Monocyte Count 0.14 10^3/uL (0.1-0.8); Platelet Count 9 10^3/uL (130-400)
[2020-05-09 10:40] LABS: Absolute Neutrophil Count 0.17 10^3/uL (1.2-6.7)
[2020-05-09 10:41] LABS: Diff Comment Manual Differential; Metamyelocytes % 1; Myelocytes % 1; Other Cells % 1
[2020-05-09 11:15] VITALS: BP 132/78; PULSE 92; RESP 18; TEMP 37.1; O2SAT 99
[2020-05-09 11:20] VITALS: BP 120/72; PULSE 94; RESP 17; TEMP 37.3; O2SAT 99
[2020-05-09 11:35] VITALS: BP 104/67; PULSE 86; RESP 16; TEMP 37.5; O2SAT 99
[2020-05-09 12:02] VITALS: BP 112/71; PULSE 87; RESP 17; TEMP 36.9; O2SAT 100
[2020-05-09 13:23] VITALS: BP 133/79; PULSE 95; RESP 20; TEMP 37.9; O2SAT 100
[2020-05-09] MEDS: Acetaminophen 325 MG TAB 650 MG PO (14:55)
[2020-05-09] MEDS: diphenhydrAMINE 25 MG CAP PO (14:55)
[2020-05-09 15:06] VITALS: BP 142/62; PULSE 99; RESP 18; TEMP 37.4; O2SAT 100
[2020-05-09] MEDS: Normal Saline Flush 10 ML SYR IVP (15:20)
[2020-05-12] MEDS: Normal Saline Flush 10 ML SYR IVP ×2 (09:03→13:47)
[2020-05-12 09:16] LABS: Abs Immature Grans 0.05 10^3/uL (0.0-0.06); HCT 27.8 % (36.0-46.0); HGB 9.4 g/dL (11.2-15.7); MCH 29.7 pg (27.0-33.0); MCHC 33.8 % (32.0-36.0); MCV 87.7 fL (80-95); MPV 9.2 fL (8.0-11.0); Nucleated RBC 0 %; RBC 3.17 10^6/uL (3.93-5.22); RDW 12.9 % (11.7-14.6); RDW-SD 41.4 fL
[2020-05-12 09:33] LABS: Bands % 1
[2020-05-12 09:37] LABS: Absolute Lymphocyte Count 0.98 10^3/uL (1.2-3.4); Absolute Monocyte Count 0.08 10^3/uL (0.1-0.8); Atypical Lymphocytes % 2; Platelet Count 9 10^3/uL (130-400); WBC 1.33 10^3/uL (4.4-10.8)
[2020-05-12 09:38] LABS: Absolute Neutrophil Count 0.19 10^3/uL (1.2-6.7)
[2020-05-12 09:39] LABS: Diff Comment Manual Differential; Other Cells % 5; RBC Morphology Normal
[2020-05-12 14:13] VITALS: BP 153/75; PULSE 87; RESP 18; TEMP 36.8; O2SAT 100
[2020-05-12 14:32] VITALS: BP 116/69; PULSE 89; RESP 18; TEMP 37.1; O2SAT 99
[2020-05-13 08:23] LABS: Metamyelocytes % 1
[2020-05-16 09:07] VITALS: BP 116/69; PULSE 89; RESP 18; TEMP 37.1; O2SAT 99
[2020-05-16] MEDS: Normal Saline Flush 10 ML SYR IVP (09:09)
[2020-05-16 09:23] LABS: Abs Immature Grans 0.06 10^3/uL (0.0-0.06); HCT 26.2 % (36.0-46.0); HGB 8.9 g/dL (11.2-15.7); MCV 88.2 fL (80-95); MPV 9.5 fL (8.0-11.0); Nucleated RBC 0 %; RBC 2.97 10^6/uL (3.93-5.22); RDW 12.8 % (11.7-14.6); RDW-SD 41.1 fL
[2020-05-16 09:55] LABS: WBC 1.51 10^3/uL (4.4-10.8)
[2020-05-16 09:56] LABS: Platelet Count 30 10^3/uL (130-400)
[2020-05-16 09:58] LABS: Bands % 1
[2020-05-16 09:59] LABS: Absolute Monocyte Count 0.11 10^3/uL (0.1-0.8); Absolute Neutrophil Count 0.21 10^3/uL (1.2-6.7)
[2020-05-16 10:00] LABS: Diff Comment Manual Differential; Other Cells % 4; RBC Morphology Normal
[2020-05-16 11:17] LABS: Myelocytes % 2
[2020-05-19 09:00] LABS: Abs Immature Grans 0.06 10^3/uL (0.0-0.06); HCT 25.2 % (36.0-46.0); HGB 8.6 g/dL (11.2-15.7); MCH 29.8 pg (27.0-33.0); MCHC 34.1 % (32.0-36.0); MCV 87.2 fL (80-95); MPV 10.6 fL (8.0-11.0); Nucleated RBC 0 %; RBC 2.89 10^6/uL (3.93-5.22); RDW 12.6 % (11.7-14.6); RDW-SD 40.4 fL
[2020-05-19 09:14] LABS: ALT 20 U/L (14-59); AST 13 U/L (15-37); Albumin 2.8 g/dL (3.4-5.0); Alkaline Phosphatase 177 U/L (46-116); BUN 16 mg/dL (7-18); Bilirubin, Total 0.3 mg/dL (0.2-1.0); CREATININE 0.72 mg/dL (0.55-1.02); Calcium 8.5 mg/dL (8.5-10.1); Chloride 102 mmol/L (98-107); Glucose 204 mg/dL (74-106); Magnesium 1.5 mg/dL (1.8-2.4); Potassium 3.4 mmol/L (3.5-5.1); Sodium 138 mmol/L (136-145); Total Protein 6.8 g/dL (6.4-8.2)
[2020-05-19 09:22] LABS: Bands % 1
[2020-05-19 09:24] LABS: Absolute Lymphocyte Count 1.39 10^3/uL (1.2-3.4); Atypical Lymphocytes % 2; Myelocytes % 3; Platelet Count 8 10^3/uL (130-400); WBC 1.71 10^3/uL (4.4-10.8)
[2020-05-19 09:25] LABS: Absolute Neutrophil Count 0.14 10^3/uL (1.2-6.7); Diff Comment Manual Differential; RBC Morphology Normal
[2020-05-19 09:26] LABS: Other Cells % 2
[2020-05-19 14:39] VITALS: BP 135/85; PULSE 84; RESP 18; TEMP 36.7; O2SAT 100
[2020-05-19] MEDS: Normal Saline Flush 10 ML SYR IVP (14:47)
[2020-05-23] VITALS (10 sets, daily range): BP systolic 110–161; BP diastolic 58–83; PULSE 78–99; RESP 16–20; TEMP 36.5–37.2; O2SAT 100
[2020-05-23 09:19] LABS: HCT 21.5 % (36.0-46.0); HGB 7.4 g/dL (11.2-15.7); MCH 29.2 pg (27.0-33.0); MCHC 34.4 % (32.0-36.0); RBC 2.53 10^6/uL (3.93-5.22); RDW 12.6 % (11.7-14.6); RDW-SD 38.8 fL
[2020-05-23 09:52] LABS: Platelet Count 18 10^3/uL (130-400); WBC 1.69 10^3/uL (4.4-10.8)
[2020-05-23 09:53] LABS: Absolute Monocyte Count 0.03 10^3/uL (0.1-0.8); Bands % 2; Metamyelocytes % 13; Nucleated RBC 1 %
[2020-05-23 09:54] LABS: Diff Comment Manual Differential; Myelocytes % 6; Other Cells % 4; Promyelocytes % 4
[2020-05-23 09:55] LABS: RBC Morphology Normal
[2020-05-23] MEDS: Normal Saline Flush 10 ML SYR IVP (10:04)
[2020-05-25] MEDS: Normal Saline Flush 10 ML SYR IVP (08:40)
[2020-05-25 08:52] LABS: Abs Immature Grans 0.08 10^3/uL (0.0-0.06); HCT 24.9 % (36.0-46.0); HGB 8.6 g/dL (11.2-15.7); MCH 29.9 pg (27.0-33.0); MCHC 34.5 % (32.0-36.0); MCV 86.5 fL (80-95); Nucleated RBC 0 %; RBC 2.88 10^6/uL (3.93-5.22); RDW 12.5 % (11.7-14.6); RDW-SD 39.4 fL
[2020-05-25 09:29] LABS: Absolute Basophil Count 0.03 10^3/uL (0.0-0.2); Absolute Eosinophil Count 0.02 10^3/uL (0.0-0.7); Absolute Lymphocyte Count 1.06 10^3/uL (1.2-3.4); Absolute Monocyte Count 0.31 10^3/uL (0.1-0.8); Atypical Lymphocytes % 2; Blastocytes % 2; Diff Comment Manual Differential; Metamyelocytes % 2; Myelocytes % 1; Promyelocytes % 1
[2020-05-25 09:30] LABS: Hypochromasia 1+
[2020-05-25 09:45] LABS: Platelet Count 24 10^3/uL (130-400); WBC 1.63 10^3/uL (4.4-10.8)
[2020-05-25 09:46] LABS: Absolute Neutrophil Count 0.11 10^3/uL (1.2-6.7)
[2020-05-25 11:00] VITALS: BP 158/75; PULSE 91; RESP 18; TEMP 37.2; O2SAT 100
[2020-05-30] VITALS (14 sets, daily range): BP systolic 101–145; BP diastolic 55–86; PULSE 83–99; RESP 16–20; TEMP 36.4–37.6; O2SAT 98–100
[2020-05-30 08:59] LABS: MCH 29.4 pg (27.0-33.0); MCHC 34.4 % (32.0-36.0); MCV 85.6 fL (80-95); RDW 12.3 % (11.7-14.6); RDW-SD 38.5 fL; WBC 2.69 10^3/uL (4.4-10.8)
[2020-05-30 09:27] LABS: HCT 15.4 % (36.0-46.0); HGB 5.3 g/dL (11.2-15.7); Platelet Count 1 10^3/uL (130-400)
[2020-05-30 09:28] LABS: Absolute Lymphocyte Count 2.07 10^3/uL (1.2-3.4); Absolute Monocyte Count 0.03 10^3/uL (0.1-0.8); Absolute Neutrophil Count 0.43 10^3/uL (1.2-6.7); Bands % 4
[2020-05-30 09:29] LABS: Diff Comment Manual Differential; Myelocytes % 3; Nucleated RBC 0 %; Other Cells % 2; Promyelocytes % 1
[2020-05-30 09:30] LABS: RBC Morphology Normal
[2020-05-30] MEDS: Normal Saline Flush 10 ML SYR IVP (15:01)
[2020-06-02] VITALS (10 sets, daily range): BP systolic 98–158; BP diastolic 52–83; PULSE 80–92; RESP 16–18; TEMP 36.2–37.5; O2SAT 99–100
[2020-06-02 09:08] LABS: HCT 21.6 % (36.0-46.0); HGB 7.3 g/dL (11.2-15.7); MCH 29.4 pg (27.0-33.0); MCHC 33.8 % (32.0-36.0); MCV 87.1 fL (80-95); MPV 11.6 fL (8.0-11.0); Nucleated RBC 1 %; RBC 2.48 10^6/uL (3.93-5.22); RDW 13.8 % (11.7-14.6); RDW-SD 43.8 fL; WBC 2.12 10^3/uL (4.4-10.8)
[2020-06-02 09:20] LABS: ALT 21 U/L (14-59); AST 14 U/L (15-37); Albumin 2.7 g/dL (3.4-5.0); Alkaline Phosphatase 137 U/L (46-116); Anion Gap 5.9 mmol/L (3-11); BUN 15 mg/dL (7-18); Bilirubin, Total 0.4 mg/dL (0.2-1.0); CO2 29.1 mmol/L (21.0-32.0); CREATININE 0.62 mg/dL (0.55-1.02); Calcium 8.4 mg/dL (8.5-10.1); Chloride 103 mmol/L (98-107); Glucose 115 mg/dL (74-106); Magnesium 1.7 mg/dL (1.8-2.4); Potassium 3.6 mmol/L (3.5-5.1); Sodium 138 mmol/L (136-145); Total Protein 6.2 g/dL (6.4-8.2)
[2020-06-02] MEDS: Normal Saline Flush 10 ML SYR IVP (09:23)
[2020-06-02 09:26] LABS: Bands % 3
[2020-06-02 09:27] LABS: Absolute Lymphocyte Count 1.38 10^3/uL (1.2-3.4); Absolute Monocyte Count 0.38 10^3/uL (0.1-0.8)
[2020-06-02 09:29] LABS: Absolute Neutrophil Count 0.15 10^3/uL (1.2-6.7)
[2020-06-02 09:30] LABS: Platelet Count 14 10^3/uL (130-400)
[2020-06-02 09:31] LABS: Diff Comment Manual Differential; Metamyelocytes % 2; Myelocytes % 5; Other Cells % 2; Promyelocytes % 1
[2020-06-02 09:32] LABS: RBC Morphology Normal
== END 2020-06-02 23:59 | disposition home or self-care (01) ==
LOC: INF 02:24
PROVIDERS: PCP Internal Medicine; Visit Provider Internal Medicine Hematology & Oncology
DX: D46.Z Other myelodysplastic syndromes (principal); Z45.2 Encounter for adjustment and management of vascular access device
CPT/HCPCS: 36430; 36591; 80053; 86850; 86900; 86901; 86920; 86945; 83735; 85025; 86644; P9016; P9035

== ENCOUNTER 2020-06-05 10:04 | Emergency (ER) | payer MEDICARE, BC, SELFPAY ==
[2020-06-05] VITALS (71 sets, daily range): BP systolic 96–145; BP diastolic 31–59; PULSE 83–107; RESP 13–34; TEMP 36.4–36.7; O2SAT 95–114
--- NOTE | 2020-06-05 10:42 | W.ED.GENAD ---
Discharge Plan Disposition Patient Disposition: HOME Condition: Stable Discharge Details Clinical Impression: Myelodysplastic syndrome, Thrombocytopenia, Anemia, Neutropenia Primary Care Provider: Kristine Franklin ED Provider: Dane Zazueta Home Meds and New Rx's Prescriptions: Continued acyclovir 400 mg tablet 400 mg PO BID RF: 0 magnesium oxide 400 mg (241.3 mg magnesium) tablet 400 mg PO DAILY RF: 0 omeprazole 20 mg capsule,delayed release(DR/EC) 20 mg PO .Q600 RF: 0 levofloxacin 500 mg Tablet 500 mg PO .NOON DAILY RF: 0 acetaminophen [Tylenol] 325 mg Capsule 650 mg PO PRN PRNRF: 0 Discharge Instructions Instructions: Myelodysplastic Syndromes (ED), Thrombocytopenia (ED), Blood Transfusion (DC) Additional Instructions: Please follow-up with your oncologist. Call tomorrow to discuss recent events including ED visit and need for transfusion. Please contact your primary care physician to arrange follow-up. Return to the ER for any worsening or new concerning symptoms. Discharge Data Discharge Date/Time-TO BE ENTERED AT DEPARTURE: 06/05/20 18:09 Medical Decision Making <Patricio May MD - Last Filed: 06/18/20 13:20> 1045??70-year-old female with myelodysplastic syndrome, received platelet and PRBC transfusions regularly, now with generalized weakness and recently bleeding gums concerned that she is thrombocytopenic. No concern for active bleeding at this time. Plan to check CBC and transfuse as necessary. 1115 --labs reviewed and hemoglobin 7.1. Platelets 2. Unfortunately irradiated PRBCs will not be available until 12:48 PM today and platelets cannot be secured for at least 5 hours. I called [facility] transfer center to consult with patient's oncologist and potentially transfer the patient for more expedited transfusion. <Dane Zazueta MD - Last Filed: 06/05/20 17:53> Received signout from Dr. May. Please see his note regarding details of initial presentation, plan of care. Patient observed and transfused as per orders for both platelets and packed red blood cells. Repeat CBC obtained with essentially stable hematocrit and rise of platelets to 81. Patient remained stable and is appropriate for outpatient plan of care as previously outlined. HPI <Patricio May MD - Last Filed: 06/18/20 13:20> General Mode of arrival: ambulatory. Date/Time Provider Initiated Documentation: 06/05/20 10:29. Limitations to Documentation: no limitations. Information obtained by: patient. HPI Narrative: 70-year-old female with myelodysplastic syndrome, received blood transfusions couple times a week ongoing, here with generalized weakness. Symptoms are moderate to severe. She believes her platelets are low. He has associated intermittent bleeding of her lower gums. Patient states that she last received 1 unit of PRBCs and 1 pack of platelets on 06/02/2020. Patient notes no bleeding at this time. No associated chest pain. Related Data Home Medications Medication Instructions Recorded Confirmed acyclovir 400 mg PO BID 03/24/20 06/05/20 magnesium oxide 400 mg PO DAILY 03/24/20 06/05/20 omeprazole 20 mg PO .Q600 03/24/20 06/05/20 levofloxacin 500 mg PO .NOON DAILY 05/01/20 06/05/20 acetaminophen [Tylenol] 650 mg PO PRN PRN 06/05/20 06/05/20 Allergies Allergy/AdvReac Type Severity Reaction Status Date / Time No Known Allergies Allergy Unverified 06/05/20 10:17 General Stated Complaint: GenMedical SHILPA: 3 Review of Systems <Patricio May MD - Last Filed: 06/18/20 13:20> All systems reviewed & are unremarkable except as noted in HPI and below Constitutional Constitutional: Reports fatigue, Denies fever(s) and Reports weakness ENT Ears, Nose, Mouth, and Throat: Reports as per HPI Cardiovascular Cardiovascular: Denies chest pain Neurologic Neurologic: Reports weakness Endocrine Endocrine: Reports fatigue PFSH <Patricio May MD - Last Filed: 06/18/20 13:20> Medical History Breast cancer, left Endometrial cancer Follicular lymphoma Social History Smoking/Tobacco Use Status: Never Smoking risk assessment performed?: Yes Alcohol Intake: never Drug use: Never Current gender identity: female Do you feel safe at home: Yes Do you feel safe in your relationship?: Yes Exam <Patricio May MD - Last Filed: 06/18/20 13:20> Const General: cooperative and no acute distress HENKS Head: normocephalic and atraumatic Mouth: moist mucous membranes Teeth and gingiva: other (No bleeding gumline) Eyes Conjunctivae: normal conjunctivae Sclera: normal sclerae Neck Neck: trachea midline and supple Resp Effort & Inspection: normal respiratory effort and able to speak in complete sentences Cardio Rate: regular rate and not tachycardic Skin General skin exam: no rashes or lesions noted Neuro General: patient alert, patient awake, patient oriented x3 and tone normal Extrem General: no edema Psych Appearance: grossly normal Mental Status: mental status grossly normal Speech and Movement: speech and movement normal Course <Patricio May MD - Last Filed: 06/18/20 13:20> Vital Signs Vital signs: Vital Signs Temperature 36.6 C 06/05/20 10:12 Pulse 100 H 06/05/20 10:12 Respiratory Rate 18 06/05/20 10:12 Blood Pressure 145/59 H 06/05/20 10:12 Pulse Oximetry 100 06/05/20 10:12 Temperature 36.6 C 06/05/20 10:12 Pulse 100 H 06/05/20 10:12 Respiratory Rate 18 06/05/20 10:21 Respiratory Effort Non-Labored 06/05/20 10:21 Respiratory Depth Normal 06/05/20 10:21 Respiratory Pattern Normal 06/05/20 10:21 Blood Pressure 145/59 H 06/05/20 10:12 Blood Pressure Position Sitting 06/05/20 10:12 Pulse Oximetry 100 06/05/20 10:12 Oxygen Delivery Method Room Air 06/05/20 10:12 Oxygen Flow Rate 0 06/05/20 10:12 Sign Out <Patricio May MD - Last Filed: 06/18/20 13:20> Sign Out Data: Sign Out Comment: Care signed out to Dr. Zazueta with plan to reassess CBC after transfusion and reassess patient for disposition. Last updated by Patricio May MD at 06/05/20 15:43
[2020-06-05 11:06] LABS: HGB 7.1 g/dL (11.2-15.7); MCHC 33.8 % (32.0-36.0); MCV 88.6 fL (80-95); RBC 2.37 10^6/uL (3.93-5.22); RDW 13.4 % (11.7-14.6); RDW-SD 43.4 fL
[2020-06-05 11:48] LABS: Platelet Count 2 10^3/uL (130-400)
[2020-06-05 11:55] LABS: Bands % 1
[2020-06-05 11:56] LABS: Absolute Neutrophil Count 0.13 10^3/uL (1.2-6.7)
[2020-06-05 11:57] LABS: Absolute Monocyte Count 0.09 10^3/uL (0.1-0.8); Metamyelocytes % 2; Myelocytes % 17; Nucleated RBC 0 %; Promyelocytes % 7
[2020-06-05 11:58] LABS: Diff Comment Manual Differential; Other Cells % 14; RBC Morphology Normal
[2020-06-05] MEDS: Acetaminophen 325 MG TAB (13:21)
[2020-06-05] MEDS: diphenhydrAMINE 25 MG CAP (13:22)
[2020-06-05 17:37] LABS: HGB 7.1 g/dL (11.2-15.7); MCH 29.5 pg (27.0-33.0); MCHC 34.1 % (32.0-36.0); MCV 86.3 fL (80-95); MPV 9.1 fL (8.0-11.0); RBC 2.41 10^6/uL (3.93-5.22); RDW 14.1 % (11.7-14.6); RDW-SD 44.2 fL
[2020-06-05 17:41] LABS: WBC 1.72 10^3/uL (4.4-10.8)
[2020-06-05 17:42] LABS: HCT 20.8 % (36.0-46.0)
[2020-06-05 17:50] LABS: Platelet Count 81 10^3/uL (130-400)
== END 2020-06-05 18:09 | disposition home or self-care (01) ==
PROVIDERS: Student in an Organized Health Care Education/Training Program; Emergency Provider Emergency Medicine; PCP Internal Medicine
DX: D46.9 Myelodysplastic syndrome, unspecified (principal); D69.6 Thrombocytopenia, unspecified; D64.9 Anemia, unspecified; D70.9 Neutropenia, unspecified
CPT/HCPCS: 36430; 36591; 85027; 86850; 86900; 86901; 86920; 86945; 99285; 85025; 86644; P9016; P9035

== ENCOUNTER 2020-06-19 12:49 | Inpatient (IN) | payer MEDICARE, BC, SELFPAY ==
[2020-06-19] VITALS (81 sets, daily range): BP systolic 103–144; BP diastolic 31–108; PULSE 77–108; RESP 13–106; TEMP 36.1–37.3; O2SAT 91–100
--- NOTE | 2020-06-19 13:15 | RT.EKG_ITS ---
APPROVED REPORT Exam: Resting ECG Patient Location: E HR:92 bpm ECG Measurements Heart Rate 92 AXIS MN 143 P 79 QRSd 75 QRS 43 QT 368 T 45 QTc 456 Conclusion Sinus rhythm...normal P axis, V-rate 60- 99
[2020-06-19 14:25] LABS: Abs Immature Grans 0.38 10^3/uL (0.0-0.06); MCH 28.8 pg (27.0-33.0); MCHC 33.9 % (32.0-36.0); MCV 84.8 fL (80-95); Nucleated RBC 2 %; RBC 1.98 10^6/uL (3.93-5.22); RDW 13.5 % (11.7-14.6); WBC 2.54 10^3/uL (4.4-10.8)
[2020-06-19 14:41] LABS: ALT 18 U/L (14-59); AST 15 U/L (15-37); Albumin 2.7 g/dL (3.4-5.0); Alkaline Phosphatase 126 U/L (46-116); Anion Gap 8.7 mmol/L (3-11); BUN 24 mg/dL (7-18); Bilirubin, Total 0.4 mg/dL (0.2-1.0); CO2 27.3 mmol/L (21.0-32.0); Calcium 8.3 mg/dL (8.5-10.1); Chloride 100 mmol/L (98-107); Glucose 110 mg/dL (74-106); Potassium 3.7 mmol/L (3.5-5.1); Sodium 136 mmol/L (136-145); Total Protein 6.3 g/dL (6.4-8.2)
[2020-06-19 14:50] LABS: Absolute Neutrophil Count 0.33 10^3/uL (1.2-6.7); Magnesium 1.6 mg/dL (1.8-2.4)
[2020-06-19 14:51] LABS: HCT 16.8 % (36.0-46.0); HGB 5.7 g/dL (11.2-15.7)
[2020-06-19 14:53] LABS: Absolute Lymphocyte Count 1.04 10^3/uL (1.2-3.4); Platelet Count 0 10^3/uL (130-400)
[2020-06-19 14:54] LABS: Absolute Monocyte Count 0.46 10^3/uL (0.1-0.8); Diff Comment Manual Differential; Metamyelocytes % 3; Myelocytes % 7; Promyelocytes % 2
[2020-06-19 14:56] LABS: Other Cells % 16
--- NOTE | 2020-06-19 15:19 | ED.GENADUL_ITS ---
Discharge Plan Disposition Patient Disposition: [facility] INPATIENT Condition: Stable Discharge Details Clinical Impression: Neutropenic fever, Thrombocytopenia, Anemia Admit Date/Time: 06/19/20 15:38 Admit Provider: Justino Garcia Attending Provider: Justino Garcia Primary Care Provider: Kristine Franklin ED Provider: Patricio May Discharge Data Discharge Date/Time-TO BE ENTERED AT DEPARTURE: 06/19/20 16:30 Medical Decision Making 70-year-old female with myelodysplastic syndrome, received scheduled transfusions Mondays and , here with generalized fatigue, weakness and petechial rash. Patient is hemodynamically stable with no active bleeding. Labs reviewed and platelets 0, hemoglobin is 5.7. Plan to give PRBC transfusion and platelet transfusion. Will be delay in obtaining irradiated blood products. Patient also with low-grade fever this morning and is noted to be neutropenic. Patient is afebrile at this time. Plan to cover for neutropenic fever with cefepime. Screening ECG was performed: Please see report. Chest x-ray reviewed and interpreted by me: No infiltrate. I do not have concern for Covid at this time. We will send screening Covid testing for admission. I called and spoke with oncologist automotive parts person at [facility] and discussed ED presentation and course including diagnostics. She recommends admission here to [facility] for treatment of neutropenic fever and transfuse PRBC and platelet in accordance with her typical transfusion protocol. Specifically noted no concern regarding low levels as patient has been trending down and feel she will benefit from transfusion today. I called and spoke with hospitalist on-call, Dr. Florence, discussed ED presentation course. He will admit the patient. Official chest x-ray interpretation and urine is pending at time of admission. Patient is currently receiving PRBCs and will require platelet transfusion. I recommended the patient be performed blood cultures and patient provided informed refusal of lab draw. HPI General Mode of arrival: ambulatory . Date/Time Provider Initiated Documentation: 06/19/20 13:14 . Limitations to Documentation: no limitations . Information obtained by: patient . HPI Narrative: HPI Narrative: 70-year-old female with myelodysplastic syndrome, received blood transfusions couple times a week ongoing, here with generalized weakness, petechial rash and generally not feeling well. Symptoms are moderate to severe. She believes her platelets are low. Patient states that she last received 1 unit of PRBCs on 06/13/2020 and 1 pack of platelets on 06/16/2020. She is safe. She thought the pack of platelets a small. She did not feel well on Saturday and has continued to not feel well. Patient notes no bleeding at this time. No associated chest pain. Patient states she had a low-grade fever 100.8 this morning. She has had fever with her disease in the past. Related Data Home Medications Medication Instructions Recorded Confirmed acyclovir 400 mg PO BID 03/24/20 06/24/20 magnesium oxide 400 mg PO DAILY 03/24/20 06/24/20 omeprazole 20 mg PO DAILY 03/24/20 06/24/20 levofloxacin 500 mg PO .NOON DAILY 05/01/20 06/24/20 acetaminophen [Tylenol] 650 mg PO PRN PRN 06/05/20 06/24/20 docusate sodium 50 mg PO DAILY PRN 06/19/20 06/24/20 lidocaine 5 % topical patch 2 patch TOPICAL DAILY #2 ea 07/08/20 07/08/20 Previous Rx's Medication Instructions Recorded lidocaine 5 % topical patch 2 patch TOPICAL DAILY #2 ea 07/08/20 Allergies Allergy/AdvReac Type Severity Reaction Status Date / Time No Known Allergies Allergy Unverified 06/19/20 13:22 General Stated Complaint: GenMedical SHILPA: 3 Review of Systems All systems reviewed & are unremarkable except as noted in HPI and below Constitutional Constitutional: Reports fever(s) ENT Comments: Had bleeding from an oral wound yesterday Respiratory Respiratory: Denies cough Gastrointestinal Gastrointestinal: Denies abdominal pain [facility] Medical History (Updated 07/08/20 @ 15:22 by Yvette Nielsen NP) Anemia Breast cancer, left Endometrial cancer Follicular lymphoma Knee pain, bilateral Myelodysplastic syndrome Neutropenia Thrombocytopenia Surgical History H/O: hysterectomy Social History Smoking/Tobacco Use Status: Never Smoking risk assessment performed?: Yes Alcohol Intake: never Drug use: Never Current gender identity: female Do you feel safe at home: Yes Do you feel safe in your relationship?: Yes Exam Const General: cooperative and no acute distress HENMT Head: normocephalic and atraumatic Mouth: moist mucous membranes Other: No bleeding from her gums Eyes Conjunctivae: normal conjunctivae Sclera: normal sclerae Neck Neck: trachea midline Resp Auscultation: clear to auscultation bilaterally, no rales, no rhonchi and no wheezes Cardio Rate: regular rate and not tachycardic Rhythm: regular rhythm GI Palpation: soft, not firm, no guarding, no masses, not rigid and nontender Skin General skin exam: petechiae (Mild arms) Neuro General: patient alert, patient awake, patient oriented x3 and tone normal Extrem General: no edema Psych Appearance: grossly normal Mental Status: mental status grossly normal Speech and Movement: speech and movement normal Course Vital Signs Vital signs: Vital Signs Temperature 36.1 C L 06/19/20 13:02 Pulse 98 H 06/19/20 13:02 Respiratory Rate 18 06/19/20 13:02 Blood Pressure 114/108 H 06/19/20 13:02 Temperature 36.1 C L 06/19/20 13:02 Temperature Source Temporal Artery Scan 06/19/20 13:02 Pulse 89 06/19/20 14:45 Respiratory Rate 24 06/19/20 14:45 Respiratory Effort 06/19/20 13:15 Respiratory Depth Normal 06/19/20 13:15 Respiratory Pattern Normal 06/19/20 13:15 Blood Pressure 129/60 06/19/20 14:45 Blood Pressure Position Sitting 06/19/20 13:02 Pulse Oximetry 99 06/19/20 14:41 Oxygen Delivery Method Room Air 06/19/20 13:02 Oxygen Flow Rate 0 06/19/20 13:02 Pain Level 0 06/19/20 13:02 Lab/Test Results Lab/Test Results: Laboratory Tests Range/Units 06/19/20 06/19/20 06/19/20 14:15 14:15 14:15 WBC (4.4-10.8) 10^3/uL 2.54 L RBC (3.93-5.22) 10^6/uL 1.98 L Hgb (11.2-15.7) g/dL 5.7 L* Hct (36.0-46.0) % 16.8 L* MCV (80-95) fL 84.8 MCH (27.0-33.0) pg 28.8 MCHC (32.0-36.0) % 33.9 RDW (11.7-14.6) % 13.5 Plt Count (130-400) 10^3/uL 0 L* MPV (8.0-11.0) fL Immature Gran % See Differential Neutrophils % 13.0 Lymphocytes % 41.0 Monocytes % 18.0 Eosinophils % 0.0 Basophils % 0.0 Metamyelocytes % 3 Myelocytes % 7 Promyelocytes % 2 Other Cells % 16 Nucleated RBC % % 2 Absolute Neutrophils (1.2-6.7) 10^3/uL 0.33 L* Absolute Lymphocytes (1.2-3.4) 10^3/uL 1.04 L Absolute Monocytes (0.1-0.8) 10^3/uL 0.46 Absolute Eosinophils (0.0-0.7) 10^3/uL 0.00 Absolute Basophils (0.0-0.2) 10^3/uL 0.00 RBC Morphology See below Sodium (136-145) mmol/L 136 Potassium (3.5-5.1) mmol/L 3.7 Chloride (98-107) mmol/L 100 Carbon Dioxide (21.0-32.0) mmol/L 27.3 Anion Gap (3-11) mmol/L 8.7 BUN (7-18) mg/dL 24 H Creatinine (0.55-1.02) mg/dL 0.60 Estimated GFR/1.73 m2 (mL/min/1.73m2) >= 60.00 Glucose (74-106) mg/dL 110 H Calcium (8.5-10.1) mg/dL 8.3 L Magnesium (1.8-2.4) mg/dL 1.6 L Total Bilirubin (0.2-1.0) mg/dL 0.4 AST (15-37) U/L 15 ALT (14-59) U/L 18 Alkaline Phosphatase (46-116) U/L 126 H Total Protein (6.4-8.2) g/dL 6.3 L Albumin (3.4-5.0) g/dL 2.7 L Crossmatch Range/Units 06/19/20 14:15 WBC (4.4-10.8) 10^3/uL RBC (3.93-5.22) 10^6/uL Hgb (11.2-15.7) g/dL Hct (36.0-46.0) % MCV (80-95) fL MCH (27.0-33.0) pg MCHC (32.0-36.0) % RDW (11.7-14.6) % Plt Count (130-400) 10^3/uL MPV (8.0-11.0) fL Immature Gran % Neutrophils % Lymphocytes % Monocytes % Eosinophils % Basophils % Metamyelocytes % Myelocytes % Promyelocytes % Other Cells % Nucleated RBC % % Absolute Neutrophils (1.2-6.7) 10^3/uL Absolute Lymphocytes (1.2-3.4) 10^3/uL Absolute Monocytes (0.1-0.8) 10^3/uL Absolute Eosinophils (0.0-0.7) 10^3/uL Absolute Basophils (0.0-0.2) 10^3/uL RBC Morphology Sodium (136-145) mmol/L Potassium (3.5-5.1) mmol/L Chloride (98-107) mmol/L Carbon Dioxide (21.0-32.0) mmol/L Anion Gap (3-11) mmol/L BUN (7-18) mg/dL Creatinine (0.55-1.02) mg/dL Estimated GFR/1.73 m2 (mL/min/1.73m2) Glucose (74-106) mg/dL Calcium (8.5-10.1) mg/dL Magnesium (1.8-2.4) mg/dL Total Bilirubin (0.2-1.0) mg/dL AST (15-37) U/L ALT (14-59) U/L Alkaline Phosphatase (46-116) U/L Total Protein (6.4-8.2) g/dL Albumin (3.4-5.0) g/dL Crossmatch See Detail
--- NOTE | 2020-06-19 15:47 | HPE_ITS ---
Date of service: 06/19/20 Time of Service: 16:13 Assessment and Plan Assessment and plan (1) Neutropenic fever: Start date: 06/19/20 Start time: 16:07 Status: Acute Assessment and plan: Fever of 100.8 at home per patient. Initiated on cefepime. Urine cx pending. cxr pending, blood cultures pending. Platelet count is 0, ANC 0.33, Palliative has been consulted. Platelets and Blood will be transfused with repeat labs She would benefit from hospice she receives transfusions twice a week. (2) Thrombocytopenia: Start date: 06/19/20 Start time: 16:10 Status: Chronic Assessment and plan: as above WBC 2.54, (3) Anemia: Start date: 06/19/20 Start time: 16:11 Status: Chronic Assessment and plan: as above receiving irradiated blood Qualifiers: Anemia type: bone marrow failure Bone marrow failure anemia type: pancytopenia, other Qualified Code(s): D61.818 - Other pancytopenia (4) Myelodysplastic syndrome: Start date: 06/19/20 Start time: 16:11 Status: Acute Assessment and plan: Seen by Dr. Franklin. as above multiple areas of petechia to bilateral knees and legs and right arm (5) DVT prophylaxis: Start date: 06/19/20 Start time: 16:15 Status: Acute Assessment and plan: Hold chemical due to low platelets, hold scd due to petehia AELXANDRU for DVT prophylaxis History of Present Illness History of Present Illness Chief Complaint: Neutropenic Fever, MDS Narrative: 70 y.o female with PMH of myelodysplastic syndrome presents to [facility] ED with c/o generalized weakness, petechial rash and generally not feeling well. She receives transfusions as an outpatient on Saturday and . Today labs in ED remarkable for hgb 5.7, HCT 16.8 and platelet 0, Mag She states at home she was running a fever of 100.8 though in the ED she was afebrile she has ran a fever in the past with neutropenia. For this reason she is being admitted to m/s for further management. Blood cultures obtained. Urine culture obtained, ua without nitrites and leuk est. Initiated on cefepime prophylactically. Will transfuse platelets and blood ordered by the ED. Repeat labs in am. SCD and TEDS. Review of Systems All systems reviewed & are unremarkable except as noted in HPI and below PFSH Medical History (Updated 06/19/20 @ 16:14 by Blanca Mo NP) Anemia Breast cancer, left Endometrial cancer Follicular lymphoma Neutropenia Thrombocytopenia Surgical History (Updated 06/19/20 @ 16:07 by Blanca Mo NP) H/O: hysterectomy Social History Smoking/Tobacco Use Status: Never Smoking risk assessment performed?: Yes Alcohol Intake: never Drug use: Never Current gender identity: female Do you feel safe at home: Yes Do you feel safe in your relationship?: Yes Meds Home Medications and Allergies Home Medications Medication Instructions Recorded Confirmed Type acyclovir 400 mg PO BID 03/24/20 06/19/20 History magnesium oxide 400 mg PO DAILY 03/24/20 06/19/20 History omeprazole 20 mg PO DAILY 03/24/20 06/19/20 History levofloxacin 500 mg PO .NOON DAILY 05/01/20 06/19/20 History acetaminophen [Tylenol] 650 mg PO PRN PRN 06/05/20 06/19/20 History docusate sodium [Colace] 50 mg PO DAILY PRN 06/19/20 06/19/20 History Allergies Allergy/AdvReac Type Severity Reaction Status Date / Time No Known Allergies Allergy Unverified 06/19/20 13:22 Exam Const General: cooperative, comfortable, no acute distress and ill appearing chronically Nutritional Appearance: thin Orientation: alert, awake and oriented x3 HENMT Head: normal to inspection, normocephalic and atraumatic Mouth: moist mucous membranes Eyes Pupils: PERRL EOM: EOM intact bilaterally Neck Neck: full ROM and no JVD Lymphatic: no lymphadenopathy noted Chest Chest: normal inspection of the chest Resp Effort & Inspection: normal respiratory effort Auscultation: clear to auscultation bilaterally Cardio Jugular venous pressure: no JVD Rate: regular rate Rhythm: regular rhythm Heart Sounds: S1 normal and S2 normal GI Inspection: normal to inspection Palpation: soft and no hepatosplenomegaly Auscultation: normal bowel sounds General: deferred Back/Spine/Pelvis Back: no CVA tenderness Thoracic/Lumbar Spine: thoracic and lumbar spine normal to inspection Skin General skin exam: petechiae (to bilateral knees, right arm with bruising to right arm and left thigh) Neuro General: patient alert, patient awake and patient oriented x3 Cognition: normal cognition Speech: speech normal and abnormal speech Extrem General: full ROM and no clubbing, cyanosis or edema Right upper extremity: full ROM Left upper extremity: full ROM Psych Appearance: grossly normal Mental Status: mental status grossly normal Speech and Movement: speech and movement normal Affect: normal affect Attitude: cooperative Results Labs Result diagrams: 06/19/20 14:15 06/19/20 14:15 Labs: Laboratory Results - last 24 hr 06/19/20 06/19/20 06/19/20 14:15 14:15 14:15 WBC 2.54 L RBC 1.98 L Hgb 5.7 L* Hct 16.8 L* MCV 84.8 MCH 28.8 MCHC 33.9 RDW 13.5 Plt Count 0 L* MPV Immature Gran % See Differential Neutrophils % 13.0 Lymphocytes % 41.0 Monocytes % 18.0 Eosinophils % 0.0 Basophils % 0.0 Metamyelocytes % 3 Myelocytes % 7 Promyelocytes % 2 Other Cells % 16 Nucleated RBC % 2 Absolute Neutrophils 0.33 L* Absolute Lymphocytes 1.04 L Absolute Monocytes 0.46 Absolute Eosinophils 0.00 Absolute Basophils 0.00 RBC Morphology See below Sodium 136 Potassium 3.7 Chloride 100 Carbon Dioxide 27.3 Anion Gap 8.7 BUN 24 H Creatinine 0.60 Estimated GFR/1.73 m2 >= 60.00 Glucose 110 H Calcium 8.3 L Magnesium 1.6 L Total Bilirubin 0.4 AST 15 ALT 18 Alkaline Phosphatase 126 H Total Protein 6.3 L Albumin 2.7 L Patient ABO/Rh Antibody Screen Crossmatch 06/19/20 14:15 WBC RBC Hgb Hct MCV MCH MCHC RDW Plt Count MPV Immature Gran % Neutrophils % Lymphocytes % Monocytes % Eosinophils % Basophils % Metamyelocytes % Myelocytes % Promyelocytes % Other Cells % Nucleated RBC % Absolute Neutrophils Absolute Lymphocytes Absolute Monocytes Absolute Eosinophils Absolute Basophils RBC Morphology Sodium Potassium Chloride Carbon Dioxide Anion Gap BUN Creatinine Estimated GFR/1.73 m2 Glucose Calcium Magnesium Total Bilirubin AST ALT Alkaline Phosphatase Total Protein Albumin Patient ABO/Rh O Positive Antibody Screen Negative Crossmatch See Detail Last Vital Signs Temp 36.6 C 06/19/20 15:43 Pulse 95 H 06/19/20 15:43 Resp 19 06/19/20 15:43 BP 113/31 L 06/19/20 15:43 Pulse Ox 100 06/19/20 15:43 COVID-19 Screening Have you, or household traveled for leisure in last 14 days?: No Had IN PERSON contact w/suspected or confirmed C-19 person: No
--- NOTE | 2020-06-19 15:50 | DI.RAD_ITS ---
EXAM: XR PORTABLE CHEST AP CLINICAL HISTORY: fever TECHNIQUE: 2D digital imaging was performed. COMPARISON: CR XR PORTABLE CHEST AP from 03/24/2020 FINDINGS: MEDIASTINUM: Normal. HEART: Normal. PULMONARY VASCULATURE: Normal. LUNGS: Clear. PLEURAL SPACE: No pleural effusion or pneumothorax. BONE:Within normal limits for the patient's age. OTHER FINDINGS:The tip of the port is in good position at the cavoatrial junction. IMPRESSION: No acute pulmonary findings. DATA REPOSITORY: RADIATION DOSE DELIVERED:
--- NOTE | 2020-06-19 16:02 | DI.VRAD_ITS ---
PROCEDURE INFORMATION: Exam: XR Chest, 1 View Exam date and time: 06/19/2020 3:49 PM Age: 70 years old Clinical indication: Fever TECHNIQUE: Imaging protocol: XR of the chest Views: 1 view. COMPARISON: CR XR PORTABLE CHEST AP 03/24/2020 12:03 PM FINDINGS: Tubes, catheters and devices: Port-A-Cath present on the right chest wall with the tip in the superior vena cava. Lungs: Unremarkable. No consolidation. Pleural space: Unremarkable. No pleural effusion. No pneumothorax. Heart/Mediastinum: Unremarkable. No cardiomegaly. Bones/joints: Unremarkable. IMPRESSION: No active cardiopulmonary findings. Dictated and Authenticated by: Basil Mejía MD. Ordering:ELISEO Curry MD
[2020-06-19 16:15] LABS: Bilirubin Negative (Negative); Blood Trace-lysed (Negative); Clarity Clear (Clear); Glucose 100 mg/dL (Negative); Ketones Negative (Negative); Leukocyte Esterase Negative (Negative); Nitrite Negative (Negative); Specific Gravity >= 1.030 (1.005-1.025); Urobilinogen 0.2 EU/dL (Up TO 0.2); pH 5.5 (5-8)
[2020-06-19 16:22] LABS: Bacteria Negative HPF (Negative); C & S Indicated? No; Casts Negative LPF (Negative); Crystals Negative HPF (Negative); Epithelial Cells Few HPF (Negative); Mucus Negative (Negative); RBC 0-2 HPF (0-2)
[2020-06-19] MEDS: Acetaminophen 325 MG TAB 650 MG PO (19:37)
[2020-06-19] MEDS: diphenhydrAMINE 25 MG CAP PO (19:37)
[2020-06-19] MEDS: Acyclovir 400 MG TAB PO (19:37)
[2020-06-19] MEDS: CEFEPIME 2 GM in Normal Saline 100 ML IVPB (22:31)
[2020-06-19 22:56] LABS: HCT 18.5 % (36.0-46.0); HGB 6.2 g/dL (11.2-15.7)
[2020-06-19] MEDS: MAGNESIUM SULFATE 4 GM/100 ML BAG IVPB (23:40)
[2020-06-20] VITALS (12 sets, daily range): BP systolic 104–125; BP diastolic 55–75; PULSE 87–96; RESP 14–20; TEMP 36.7–37.2; O2SAT 98–100
[2020-06-20] MEDS: Normal Saline Flush 10 ML SYR IVP ×2 (06:09→08:47)
[2020-06-20 07:18] LABS: Abs Immature Grans 0.63 10^3/uL (0.0-0.06); MCH 28.8 pg (27.0-33.0); MCHC 34.2 % (32.0-36.0); Nucleated RBC 2 %; RBC 2.19 10^6/uL (3.93-5.22); RDW 13.3 % (11.7-14.6); RDW-SD 41.3 fL; WBC 2.75 10^3/uL (4.4-10.8)
[2020-06-20 07:26] LABS: Anion Gap 6.3 mmol/L (3-11); BUN 17 mg/dL (7-18); CO2 28.7 mmol/L (21.0-32.0); CREATININE 0.53 mg/dL (0.55-1.02); Chloride 103 mmol/L (98-107); Glucose 122 mg/dL (74-106); Magnesium 2.5 mg/dL (1.8-2.4); Potassium 3.6 mmol/L (3.5-5.1); Sodium 138 mmol/L (136-145)
[2020-06-20 07:58] LABS: HCT 18.4 % (36.0-46.0); Platelet Count 36 10^3/uL (130-400)
[2020-06-20 08:00] LABS: Absolute Basophil Count 0.03 10^3/uL (0.0-0.2); Absolute Monocyte Count 0.58 10^3/uL (0.1-0.8); Metamyelocytes % 4; Myelocytes % 2
[2020-06-20 08:01] LABS: Other Cells % 16
[2020-06-20 08:02] LABS: Absolute Neutrophil Count 0.44 10^3/uL (1.2-6.7); Diff Comment Manual Differential; Microcytosis 2+
[2020-06-20 08:03] LABS: HGB 6.3 g/dL (11.2-15.7)
[2020-06-20] MEDS: Omeprazole 20 MG CAPCR PO (08:46)
[2020-06-20] MEDS: Magnesium Oxide 400 MG TAB PO (08:46)
[2020-06-20] MEDS: Acyclovir 400 MG TAB PO (08:46)
[2020-06-20] MEDS: levoFLOXacin 500 MG TAB PO (12:43)
--- NOTE | 2020-06-20 12:46 | W.PALLCONSUL ---
Date of service: 06/20/20 Time of Service: 18:47 History of Present Illness Consults Consult date: 06/20/20 Requesting physician: Justino Garcia [facility] Medical History (Updated 06/19/20 @ 16:14 by Blanca Mo NP) Anemia Breast cancer, left Endometrial cancer Follicular lymphoma Neutropenia Thrombocytopenia Surgical History (Updated 06/19/20 @ 16:07 by Blanca Mo NP) H/O: hysterectomy Social History Smoking/Tobacco Use Status: Never Smoking risk assessment performed?: Yes Alcohol Intake: never Drug use: Never Current gender identity: female Do you feel safe at home: Yes Do you feel safe in your relationship?: Yes Results Last Vital Signs Temp 98.2 F 06/20/20 11:45 Pulse 90 06/20/20 11:45 Resp 17 06/20/20 11:45 BP 112/69 06/20/20 11:45 Pulse Ox 98 06/20/20 11:45 Labs Result diagrams: 06/20/20 06:55 06/20/20 06:55 Labs: Laboratory Results - last 24 hr 06/19/20 06/19/20 06/19/20 14:15 14:15 14:15 WBC 2.54 L RBC 1.98 L Hgb 5.7 L* Hct 16.8 L* MCV 84.8 MCH 28.8 MCHC 33.9 RDW 13.5 Plt Count 0 L* MPV Immature Gran % See Differential Neutrophils % 13.0 Lymphocytes % 41.0 Monocytes % 18.0 Eosinophils % 0.0 Basophils % 0.0 Metamyelocytes % 3 Myelocytes % 7 Promyelocytes % 2 Other Cells % 16 Nucleated RBC % 2 Absolute Neutrophils 0.33 L* Absolute Lymphocytes 1.04 L Absolute Monocytes 0.46 Absolute Eosinophils 0.00 Absolute Basophils 0.00 RBC Morphology See below Microcytosis Sodium 136 Potassium 3.7 Chloride 100 Carbon Dioxide 27.3 Anion Gap 8.7 BUN 24 H Creatinine 0.60 Estimated GFR/1.73 m2 >= 60.00 Glucose 110 H Calcium 8.3 L Magnesium 1.6 L Total Bilirubin 0.4 AST 15 ALT 18 Alkaline Phosphatase 126 H Total Protein 6.3 L Albumin 2.7 L Urine Color Urine Clarity Urine pH Ur Specific [place] Urine Protein Urine Ketones Urine Blood Urine Nitrite Urine Bilirubin Urine Urobilinogen Ur Leukocyte Esterase Urine RBC Urine WBC Ur Epithelial Cells Urine Crystals Urine Bacteria Urine Casts Urine Mucus Ur Culture Indicated? Urine Glucose Patient ABO/Rh Antibody Screen Crossmatch 06/19/20 06/19/20 06/19/20 14:15 16:05 22:42 WBC RBC Hgb 6.2 L* Hct 18.5 L* MCV MCH MCHC RDW Plt Count MPV Immature Gran % Neutrophils % Lymphocytes % Monocytes % Eosinophils % Basophils % Metamyelocytes % Myelocytes % Promyelocytes % Other Cells % Nucleated RBC % Absolute Neutrophils Absolute Lymphocytes Absolute Monocytes Absolute Eosinophils Absolute Basophils RBC Morphology Microcytosis Sodium Potassium Chloride Carbon Dioxide Anion Gap BUN Creatinine Estimated GFR/1.73 m2 Glucose Calcium Magnesium Total Bilirubin AST ALT Alkaline Phosphatase Total Protein Albumin Urine Color Yellow Urine Clarity Clear Urine pH 5.5 Ur Specific [place] >= 1.030 H Urine Protein Trace H Urine Ketones Negative Urine Blood Trace-lysed H Urine Nitrite Negative Urine Bilirubin Negative Urine Urobilinogen 0.2 Ur Leukocyte Esterase Negative Urine RBC 0-2 Urine WBC 3-5 Ur Epithelial Cells Few Urine Crystals Negative Urine Bacteria Negative Urine Casts Negative Urine Mucus Negative Ur Culture Indicated? No Urine Glucose 100 Patient ABO/Rh O Positive Antibody Screen Negative Crossmatch See Detail 06/20/20 06/20/20 06:55 06:55 WBC 2.75 L RBC 2.19 L Hgb 6.3 L* Hct 18.4 L* MCV 84.0 MCH 28.8 MCHC 34.2 RDW 13.3 Plt Count 36 L D MPV 9.0 Immature Gran % See Differential Neutrophils % 16.0 Lymphocytes % 40.0 Monocytes % 21.0 Eosinophils % 0.0 Basophils % 1.0 Metamyelocytes % 4 Myelocytes % 2 Promyelocytes % Other Cells % 16 Nucleated RBC % 2 Absolute Neutrophils 0.44 L* Absolute Lymphocytes 1.10 L Absolute Monocytes 0.58 Absolute Eosinophils 0.00 Absolute Basophils 0.03 RBC Morphology See below Microcytosis 2+ Sodium 138 Potassium 3.6 Chloride 103 Carbon Dioxide 28.7 Anion Gap 6.3 BUN 17 D Creatinine 0.53 L Estimated GFR/1.73 m2 >= 60.00 Glucose 122 H Calcium 8.0 L Magnesium 2.5 H Total Bilirubin AST ALT Alkaline Phosphatase Total Protein Albumin Urine Color Urine Clarity Urine pH Ur Specific [place] Urine Protein Urine Ketones Urine Blood Urine Nitrite Urine Bilirubin Urine Urobilinogen Ur Leukocyte Esterase Urine RBC Urine WBC Ur Epithelial Cells Urine Crystals Urine Bacteria Urine Casts Urine Mucus Ur Culture Indicated? Urine Glucose Patient ABO/Rh Antibody Screen Crossmatch
--- NOTE | 2020-06-20 13:51 | DSE_ITS ---
Date of service: 06/20/20 Time of Service: 13:52 DS: Diagnosis Discharge Diagnosis (1) Neutropenic fever: Status: Acute (2) Thrombocytopenia: Status: Chronic (3) Anemia: Status: Chronic (4) Myelodysplastic syndrome: Status: Acute Discharge Plan Disposition Patient Disposition: HOME Condition: Stable Discharge Details Reason For Visit: NEUTROPENIC FEVER, MDS Admit Date/Time: 06/19/20 15:38 Admit Provider: Justino Garcia Attending Provider: Justino Garcia Primary Care Provider: Kristine Franklin [facility] Hospital Course Hospital Course: 70 y.o female with PMH of myelodysplastic syndrome presented to [facility] ED with c/o generalized weakness, petechial rash and generally not feeling well. She receives transfusions as an outpatient on Saturday and . Labs in ED remarkable for hgb 5.7, HCT 16.8 and platelet 0, Mag She states at home she was running a fever of 100.8 though in the ED she was afebrile she has ran a fever in the past with neutropenia. For this reason she was admitted to m/s for further management. Blood cultures obtained and are pending but no growth to date. Urine culture obtained, ua without nitrites and leuk est. Covid testing by PCR was negative. She was initiated on cefepime prophylactically. She was transfused platelets and blood ordered by the ED. Her hemoglobin went up to 6.3/18.4 and platelets to 36. she has no c/o and has been afebrile. She receive one more unit of PRBC today and wishes for discharge to home. she will return in the am for repeat blood work post 2nd PRBC infusion. She will resume home medications as previously directed. no new prescriptions discussed with Dr Garcia. Home Meds and New Rx's Prescriptions: Continued acyclovir 400 mg tablet 400 mg PO BID RF: 0 magnesium oxide 400 mg (241.3 mg magnesium) tablet 400 mg PO DAILY RF: 0 omeprazole 20 mg capsule,delayed release(DR/EC) 20 mg PO DAILY RF: 0 levofloxacin 500 mg Tablet 500 mg PO .NOON DAILY RF: 0 acetaminophen [Tylenol] 325 mg Capsule 650 mg PO PRN PRNRF: 0 docusate sodium 50 mg Capsule 50 mg PO DAILY PRNRF: 0 Discharge Instructions Instructions: Myelodysplastic Syndromes (DC) Additional Instructions: continue usual medications and routine return immediate for fever, new or worsening symptoms Referrals: Kristine Franklin [Primary Care Provider] - 07/04/20 11:00 am Activity:: Activity as Tolerated Equipment/Supplies:: No Equipment Needed Diet:: As Tolerated Discharge Orders Discharge Orders: Discharge Order (Routine); Ordered 06/20/20 Ordered By: Angela Rodgers Other Ambulatory Orders: Complete Blood Count w/Diff (Routine) Timeframe: 20200621 Location: None Selected Ordered By: Angela Rodgers DS: Summary Status at Discharge Functional status at discharge: independent ambulation Overall status at discharge: patient is back to baseline Mental Status: mental status grossly normal Speech and Movement: speech and movement normal Mood: congruent mood Affect: normal affect Exam Const General: cooperative, comfortable and no acute distress Nutritional Appearance: thin Orientation: alert, awake and oriented x3 HENMT Head: normal to inspection, normocephalic and atraumatic Mouth: moist mucous membranes Eyes Pupils: PERRL EOM: EOM intact bilaterally Neck Neck: full ROM and no JVD Lymphatic: no lymphadenopathy noted Chest Chest: normal inspection of the chest Resp Effort & Inspection: normal respiratory effort Auscultation: clear to auscultation bilaterally Cardio Jugular venous pressure: no JVD Rate: regular rate Rhythm: regular rhythm Heart Sounds: S1 normal and S2 normal GI Inspection: normal to inspection Palpation: soft and no hepatosplenomegaly Auscultation: normal bowel sounds Back/Spine/Pelvis Back: no CVA tenderness Thoracic/Lumbar Spine: thoracic and lumbar spine normal to inspection Skin General skin exam: petechiae (to bilateral knees, right arm with bruising to right arm and left thigh) Neuro General: patient alert, patient awake and patient oriented x3 Cognition: normal cognition Speech: speech normal and abnormal speech Extrem General: full ROM and no clubbing, cyanosis or edema Right upper extremity: full ROM Left upper extremity: full ROM Psych Appearance: grossly normal Mental Status: mental status grossly normal Speech and Movement: speech and movement normal Mood: congruent mood Affect: normal affect Attitude: cooperative DS: Data Vitals/I&O Vitals and I&O: Vital Signs Temperature 37.2 C 06/20/20 12:41 Temperature Source Tympanic 06/20/20 11:45 Pulse 96 H 06/20/20 12:41 Pulse Rhythm Regular 06/20/20 08:40 Pulse 97 H 06/19/20 15:58 Respiratory Rate 20 06/20/20 12:41 Respiratory Effort Non-Labored 06/20/20 08:40 Respiratory Depth Normal 06/20/20 08:40 Respiratory Pattern Normal 06/20/20 08:40 Blood Pressure 121/74 06/20/20 12:41 Blood Pressure Mean 62 06/19/20 15:58 Blood Pressure Position Sitting 06/19/20 13:02 Pulse Oximetry 100 06/20/20 12:41 Oxygen Delivery Method Room Air 06/20/20 12:41 Oxygen Flow Rate 0 06/20/20 12:41 Pain Level 0 06/20/20 11:45 Comment 06/20/20 08:19 Intake & Output 06/19/20 06/20/20 06/20/20 23:59 11:59 23:59 Intake Total 913 / 913 430 / 430 Output Total 500 / 500 300 / 300 Balance 413 / 413 130 / 130 Weight 50 kg Intake: IV 100 / 100 230 / 230 Oral 200 / 200 Blood Product 813 / 813 Pheresis Platelets Unit 313 / 313 [id number] Rbc Leuko Reduced Unit 500 / 500 [id number] Output: Urine 500 / 500 300 / 300 Other: Urine Color Pale Pale Yellow Yellow Urine Appearance Clear Clear Urine Odor Normal None Comment pT said she has gone to the bathroom a couple of times. Voiding Methods Bedside Commode Toilet Data Completed and Pending Labs on day of discharge: Labs from last 24 hours 06/20/20 06/20/20 06/19/20 06:55 06:55 22:42 WBC 2.75 L RBC 2.19 L Hgb 6.3 L* 6.2 L* Hct 18.4 L* 18.5 L* MCV 84.0 MCH 28.8 MCHC 34.2 RDW 13.3 Plt Count 36 L D MPV 9.0 Immature Gran % See Differential Neutrophils % 16.0 Lymphocytes % 40.0 Monocytes % 21.0 Eosinophils % 0.0 Basophils % 1.0 Metamyelocytes % 4 Myelocytes % 2 Promyelocytes % Other Cells % 16 Nucleated RBC % 2 Absolute Neutrophils 0.44 L* Absolute Lymphocytes 1.10 L Absolute Monocytes 0.58 Absolute Eosinophils 0.00 Absolute Basophils 0.03 RBC Morphology See below Microcytosis 2+ Sodium 138 Potassium 3.6 Chloride 103 Carbon Dioxide 28.7 Anion Gap 6.3 BUN 17 D Creatinine 0.53 L Estimated GFR/1.73 m2 >= 60.00 Glucose 122 H Calcium 8.0 L Magnesium 2.5 H Total Bilirubin AST ALT Alkaline Phosphatase Total Protein Albumin Urine Color Urine Clarity Urine pH Ur Specific Mather Urine Protein Urine Ketones Urine Blood Urine Nitrite Urine Bilirubin Urine Urobilinogen Ur Leukocyte Esterase Urine RBC Urine WBC Ur Epithelial Cells Urine Crystals Urine Bacteria Urine Casts Urine Mucus Ur Culture Indicated? Urine Glucose SARS-CoV-2 (PCR) Nasopharyn COVID-19 PCR Ref Test Perform Site Patient ABO/Rh Antibody Screen Crossmatch 06/19/20 06/19/20 06/19/20 16:05 16:05 14:15 WBC RBC Hgb Hct MCV MCH MCHC RDW Plt Count MPV Immature Gran % Neutrophils % Lymphocytes % Monocytes % Eosinophils % Basophils % Metamyelocytes % Myelocytes % Promyelocytes % Other Cells % Nucleated RBC % Absolute Neutrophils Absolute Lymphocytes Absolute Monocytes Absolute Eosinophils Absolute Basophils RBC Morphology Microcytosis Sodium Potassium Chloride Carbon Dioxide Anion Gap BUN Creatinine Estimated GFR/1.73 m2 Glucose Calcium Magnesium Total Bilirubin AST ALT Alkaline Phosphatase Total Protein Albumin Urine Color Yellow Urine Clarity Clear Urine pH 5.5 Ur Specific Mather >= 1.030 H Urine Protein Trace H Urine Ketones Negative Urine Blood Trace-lysed H Urine Nitrite Negative Urine Bilirubin Negative Urine Urobilinogen 0.2 Ur Leukocyte Esterase Negative Urine RBC 0-2 Urine WBC 3-5 Ur Epithelial Cells Few Urine Crystals Negative Urine Bacteria Negative Urine Casts Negative Urine Mucus Negative Ur Culture Indicated? No Urine Glucose 100 SARS-CoV-2 (PCR) Pending Nasopharyn COVID-19 PCR Pending Ref Test Perform Site Pending Patient ABO/Rh O Positive Antibody Screen Negative Crossmatch See Detail 06/19/20 06/19/20 06/19/20 14:15 14:15 14:15 WBC 2.54 L RBC 1.98 L Hgb 5.7 L* Hct 16.8 L* MCV 84.8 MCH 28.8 MCHC 33.9 RDW 13.5 Plt Count 0 L* MPV Immature Gran % See Differential Neutrophils % 13.0 Lymphocytes % 41.0 Monocytes % 18.0 Eosinophils % 0.0 Basophils % 0.0 Metamyelocytes % 3 Myelocytes % 7 Promyelocytes % 2 Other Cells % 16 Nucleated RBC % 2 Absolute Neutrophils 0.33 L* Absolute Lymphocytes 1.04 L Absolute Monocytes 0.46 Absolute Eosinophils 0.00 Absolute Basophils 0.00 RBC Morphology See below Microcytosis Sodium 136 Potassium 3.7 Chloride 100 Carbon Dioxide 27.3 Anion Gap 8.7 BUN 24 H Creatinine 0.60 Estimated GFR/1.73 m2 >= 60.00 Glucose 110 H Calcium 8.3 L Magnesium 1.6 L Total Bilirubin 0.4 AST 15 ALT 18 Alkaline Phosphatase 126 H Total Protein 6.3 L Albumin 2.7 L Urine Color Urine Clarity Urine pH Ur Specific Mather Urine Protein Urine Ketones Urine Blood Urine Nitrite Urine Bilirubin Urine Urobilinogen Ur Leukocyte Esterase Urine RBC Urine WBC Ur Epithelial Cells Urine Crystals Urine Bacteria Urine Casts Urine Mucus Ur Culture Indicated? Urine Glucose SARS-CoV-2 (PCR) Nasopharyn COVID-19 PCR Ref Test Perform Site Patient ABO/Rh Antibody Screen Crossmatch [facility] Medical History (Updated 06/19/20 @ 16:14 by Blanca Mo NP) Anemia Breast cancer, left Endometrial cancer Follicular lymphoma Neutropenia Thrombocytopenia Surgical History (Updated 06/19/20 @ 16:07 by Blanca Mo NP) H/O: hysterectomy Social History Smoking/Tobacco Use Status: Never Smoking risk assessment performed?: Yes Alcohol Intake: never Drug use: Never Current gender identity: female Do you feel safe at home: Yes Do you feel safe in your relationship?: Yes
[2020-06-20 21:14] LABS: COVID-19 RT-PCR UVMMC Result Negative (Negative)
== END 2020-06-20 15:10 | disposition home or self-care (01) | DRG 810 ==
LOC: ER 16:06 → MS 16:33
PROVIDERS: Nurse Practitioner Family; Admitting Provider Family Medicine; Emergency Provider Student in an Organized Health Care Education/Training Program; PCP Internal Medicine; Visit Provider Family Medicine
DX: D70.9 Neutropenia, unspecified (principal); R50.81 Fever presenting with conditions classified elsewhere; D69.6 Thrombocytopenia, unspecified; D61.818 Other pancytopenia; D46.9 Myelodysplastic syndrome, unspecified; Z85.42 Personal history of malignant neoplasm of other parts of uterus; Z85.3 Personal history of malignant neoplasm of breast
CPT/HCPCS: 36430; 36591; 80048; 80053; 86850; 86900; 86901; 86920; 86945; 87040; 93005; 99217; 99223; 99285; U0003; 71045; 81003; 81015; 83735; 85014; 85018; 85025; 93010; 99238; J3475; P9016; P9035

== ENCOUNTER 2020-06-30 09:00 | Outpatient (RCR) | payer MEDICARE, BC, SELFPAY ==
[2020-06-03 00:02] VITALS: BP 149/71; PULSE 92; RESP 18; TEMP 37.2
[2020-06-06] MEDS: Normal Saline Flush 10 ML SYR IVP (09:01)
[2020-06-06 09:27] LABS: Abs Immature Grans 0.21 10^3/uL (0.0-0.06); HCT 24.6 % (36.0-46.0); HGB 8.3 g/dL (11.2-15.7); MCH 29.2 pg (27.0-33.0); MCHC 33.7 % (32.0-36.0); MCV 86.6 fL (80-95); MPV 9.4 fL (8.0-11.0); Nucleated RBC 0 %; RBC 2.84 10^6/uL (3.93-5.22); RDW 14.7 % (11.7-14.6); RDW-SD 46.9 fL
[2020-06-06 09:49] LABS: Bands % 3
[2020-06-06 09:50] LABS: WBC 1.94 10^3/uL (4.4-10.8)
[2020-06-06 09:51] LABS: Absolute Lymphocyte Count 1.36 10^3/uL (1.2-3.4); Absolute Neutrophil Count 0.25 10^3/uL (1.2-6.7); Atypical Lymphocytes % 3; Platelet Count 54 10^3/uL (130-400)
[2020-06-06 09:52] LABS: Absolute Monocyte Count 0.16 10^3/uL (0.1-0.8); Diff Comment Manual Differential; Metamyelocytes % 5; Myelocytes % 1; Other Cells % 3
[2020-06-09] MEDS: Normal Saline Flush 10 ML SYR IVP (09:10)
[2020-06-09 09:34] LABS: HCT 25.6 % (36.0-46.0); HGB 8.4 g/dL (11.2-15.7); MCH 28.8 pg (27.0-33.0); MCHC 32.8 % (32.0-36.0); MCV 87.7 fL (80-95); MPV 10.8 fL (8.0-11.0); Nucleated RBC 1 %; RBC 2.92 10^6/uL (3.93-5.22); RDW 13.8 % (11.7-14.6); RDW-SD 44.5 fL
[2020-06-09 09:51] LABS: ALT 23 U/L (14-59); AST 14 U/L (15-37); Albumin 2.8 g/dL (3.4-5.0); Alkaline Phosphatase 151 U/L (46-116); Anion Gap 7.1 mmol/L (3-11); BUN 16 mg/dL (7-18); Bilirubin, Total 0.3 mg/dL (0.2-1.0); CO2 27.9 mmol/L (21.0-32.0); CREATININE 0.62 mg/dL (0.55-1.02); Calcium 8.4 mg/dL (8.5-10.1); Chloride 103 mmol/L (98-107); Glucose 207 mg/dL (74-106); Magnesium 1.6 mg/dL (1.8-2.4); Potassium 3.5 mmol/L (3.5-5.1); Sodium 138 mmol/L (136-145); Total Protein 6.6 g/dL (6.4-8.2)
[2020-06-09 09:53] LABS: Absolute Lymphocyte Count 1.75 10^3/uL (1.2-3.4); Absolute Monocyte Count 0.29 10^3/uL (0.1-0.8)
[2020-06-09 09:56] LABS: Absolute Neutrophil Count 0.12 10^3/uL (1.2-6.7); Other Cells % 5; Platelet Count 14 10^3/uL (130-400)
[2020-06-09 09:57] LABS: Diff Comment Manual Differential; RBC Morphology Normal
[2020-06-09 12:25] LABS: Myelocytes % 5
[2020-06-09 13:19] VITALS: BP 160/74; PULSE 90; RESP 18; TEMP 37.3; O2SAT 99
[2020-06-09 14:22] VITALS: BP 139/85; PULSE 105; RESP 18; TEMP 37; O2SAT 100
[2020-06-13] VITALS (8 sets, daily range): BP systolic 118–163; BP diastolic 72–79; PULSE 76–89; RESP 17–20; TEMP 37.1–37.5; O2SAT 98–100
[2020-06-13 10:04] LABS: HCT 23.9 % (36.0-46.0); MCHC 33.5 % (32.0-36.0); MCV 86.6 fL (80-95); RBC 2.76 10^6/uL (3.93-5.22); WBC 2.64 10^3/uL (4.4-10.8)
[2020-06-13 10:05] LABS: RDW 13.5 % (11.7-14.6); RDW-SD 42.6 fL
[2020-06-13 10:06] LABS: Absolute Lymphocyte Count 1.64 10^3/uL (1.2-3.4); Absolute Monocyte Count 0.08 10^3/uL (0.1-0.8); Absolute Neutrophil Count 0.24 10^3/uL (1.2-6.7); Bands % 1; MPV 12.3 fL (8.0-11.0); Metamyelocytes % 2; Myelocytes % 5; Nucleated RBC 2 %; Platelet Count 3 10^3/uL (130-400); Promyelocytes % 7
[2020-06-13 10:07] LABS: Diff Comment Manual Differential; Other Cells % 12; RBC Morphology Normal
[2020-06-13] MEDS: Normal Saline Flush 10 ML SYR IVP (10:38)
[2020-06-16 09:35] LABS: Abs Immature Grans 0.25 10^3/uL (0.0-0.06); Absolute Basophil Count 0.02 10^3/uL (0.0-0.2); HCT 25.8 % (36.0-46.0); HGB 8.5 g/dL (11.2-15.7); MCH 28.3 pg (27.0-33.0); MCHC 32.9 % (32.0-36.0); RDW 13.9 % (11.7-14.6); RDW-SD 43.8 fL; WBC 2.27 10^3/uL (4.4-10.8)
[2020-06-16] MEDS: Normal Saline Flush 10 ML SYR IVP (10:23)
[2020-06-16 10:32] LABS: Absolute Lymphocyte Count 1.02 10^3/uL (1.2-3.4); Absolute Monocyte Count 0.68 10^3/uL (0.1-0.8); Metamyelocytes % 4; Myelocytes % 3; Nucleated RBC 3 %; Other Cells % 3; Promyelocytes % 3
[2020-06-16 10:33] LABS: Diff Comment Manual Differential
[2020-06-16 10:34] LABS: Absolute Neutrophil Count 0.25 10^3/uL (1.2-6.7); Platelet Count 1 10^3/uL (130-400)
[2020-06-16 10:35] LABS: Hypochromasia 2+; Polychromasia Present
[2020-06-16 10:36] LABS: Poikilocytes 2+
[2020-06-16 12:50] VITALS: BP 143/80; PULSE 94; RESP 18; TEMP 37; O2SAT 98
[2020-06-16 13:13] VITALS: BP 130/70; PULSE 98; RESP 18; TEMP 37; O2SAT 100
[2020-06-23] VITALS (8 sets, daily range): BP systolic 121–167; BP diastolic 66–95; PULSE 86–92; RESP 18–19; TEMP 37.1–37.3; O2SAT 99–100
[2020-06-23 09:18] LABS: Abs Immature Grans 0.32 10^3/uL (0.0-0.06); HCT 23.7 % (36.0-46.0); MCH 29.2 pg (27.0-33.0); MCHC 33.8 % (32.0-36.0); MCV 86.5 fL (80-95); RBC 2.74 10^6/uL (3.93-5.22); RDW 13.6 % (11.7-14.6); RDW-SD 42.8 fL; WBC 2.84 10^3/uL (4.4-10.8)
[2020-06-23 09:49] LABS: Platelet Count 2 10^3/uL (130-400)
[2020-06-23 09:51] LABS: Absolute Lymphocyte Count 1.31 10^3/uL (1.2-3.4); Absolute Neutrophil Count 0.28 10^3/uL (1.2-6.7); Bands % 5
[2020-06-23 09:52] LABS: Absolute Basophil Count 0.03 10^3/uL (0.0-0.2); Absolute Monocyte Count 0.68 10^3/uL (0.1-0.8)
[2020-06-23 09:53] LABS: Diff Comment Manual Differential; Metamyelocytes % 3; Microcytosis 1+; Myelocytes % 6; Nucleated RBC 1 %; Other Cells % 10
[2020-06-23 10:51] LABS: ALT 26 U/L (14-59); AST 14 U/L (15-37); Albumin 2.9 g/dL (3.4-5.0); Alkaline Phosphatase 151 U/L (46-116); Anion Gap 6.5 mmol/L (3-11); BUN 15 mg/dL (7-18); Bilirubin, Total 0.3 mg/dL (0.2-1.0); CO2 27.5 mmol/L (21.0-32.0); CREATININE 0.67 mg/dL (0.55-1.02); Calcium 8.5 mg/dL (8.5-10.1); Chloride 102 mmol/L (98-107); Glucose 195 mg/dL (74-106); Magnesium 1.6 mg/dL (1.8-2.4); Potassium 3.5 mmol/L (3.5-5.1); Sodium 136 mmol/L (136-145); Total Protein 6.5 g/dL (6.4-8.2)
[2020-06-23] MEDS: Normal Saline Flush 10 ML SYR IVP (12:00)
[2020-06-27 09:20] LABS: Abs Immature Grans 0.35 10^3/uL (0.0-0.06); HGB 8.6 g/dL (11.2-15.7); MCH 29.8 pg (27.0-33.0); MCHC 33.1 % (32.0-36.0); Nucleated RBC 2 %; RBC 2.89 10^6/uL (3.93-5.22); RDW 14.1 % (11.7-14.6); RDW-SD 46.9 fL; WBC 2.74 10^3/uL (4.4-10.8)
[2020-06-27 09:46] LABS: Absolute Lymphocyte Count 1.53 10^3/uL (1.2-3.4); Absolute Monocyte Count 0.38 10^3/uL (0.1-0.8)
[2020-06-27 09:48] LABS: Platelet Count 7 10^3/uL (130-400)
[2020-06-27 09:49] LABS: Absolute Neutrophil Count 0.25 10^3/uL (1.2-6.7); Diff Comment Manual Differential; Metamyelocytes % 3; Myelocytes % 4; Other Cells % 14
[2020-06-27 12:42] VITALS: BP 164/107; PULSE 96; RESP 18; TEMP 37.1; O2SAT 100
[2020-06-27 13:05] VITALS: BP 156/86; PULSE 93; RESP 16; TEMP 36.9; O2SAT 100
[2020-06-27] MEDS: Normal Saline Flush 10 ML SYR IVP (13:15)
[2020-06-30 09:26] LABS: Abs Immature Grans 0.41 10^3/uL (0.0-0.06); HGB 8.4 g/dL (11.2-15.7); MCH 29.7 pg (27.0-33.0); MCHC 33.6 % (32.0-36.0); MCV 88.3 fL (80-95); MPV 11.6 fL (8.0-11.0); RBC 2.83 10^6/uL (3.93-5.22); RDW 13.8 % (11.7-14.6); RDW-SD 44.8 fL; WBC 3.21 10^3/uL (4.4-10.8)
[2020-06-30 09:46] LABS: Absolute Monocyte Count 0.51 10^3/uL (0.1-0.8); Atypical Lymphocytes % 6; Bands % 2; Nucleated RBC 2 %
[2020-06-30 09:48] LABS: Diff Comment Manual Differential; Polychromasia Present
[2020-06-30 09:52] LABS: Platelet Count 3 10^3/uL (130-400)
[2020-06-30 09:53] LABS: Absolute Neutrophil Count 0.22 10^3/uL (1.2-6.7); Metamyelocytes % 3; Myelocytes % 6; Other Cells % 12
[2020-06-30 13:21] VITALS: BP 149/71; PULSE 88; RESP 18; TEMP 37.1; O2SAT 99
[2020-06-30] MEDS: Normal Saline Flush 10 ML SYR IVP (14:50)
== END 2020-07-03 23:59 | disposition home or self-care (01) ==
LOC: INF 09:00
PROVIDERS: PCP Internal Medicine; Visit Provider Internal Medicine Hematology & Oncology
DX: D46.Z Other myelodysplastic syndromes (principal); Z45.2 Encounter for adjustment and management of vascular access device
CPT/HCPCS: 36430; 36591; 80053; 86850; 86900; 86901; 86920; 86945; 83735; 85025; P9016; P9035

== ENCOUNTER 2020-07-28 09:00 | Outpatient (RCR) | payer MEDICARE, BC, SELFPAY ==
[2020-07-04] VITALS (8 sets, daily range): BP systolic 122–149; BP diastolic 54–71; PULSE 88–98; RESP 12–18; TEMP 36.5–38.1; O2SAT 98–100
[2020-07-04] MEDS: Normal Saline Flush 10 ML SYR IVP (09:12)
[2020-07-04 09:26] LABS: Abs Immature Grans 0.59 10^3/uL (0.0-0.06); HCT 21.6 % (36.0-46.0); HGB 7.2 g/dL (11.2-15.7); MCH 29.5 pg (27.0-33.0); MCHC 33.3 % (32.0-36.0); MCV 88.5 fL (80-95); MPV 11.3 fL (8.0-11.0); Nucleated RBC 3 %; RBC 2.44 10^6/uL (3.93-5.22); RDW 13.7 % (11.7-14.6); RDW-SD 44.6 fL; WBC 3.85 10^3/uL (4.4-10.8)
[2020-07-04 09:45] LABS: Absolute Lymphocyte Count 1.69 10^3/uL (1.2-3.4); Absolute Neutrophil Count 0.65 10^3/uL (1.2-6.7); Bands % 2
[2020-07-04 09:46] LABS: Absolute Monocyte Count 0.42 10^3/uL (0.1-0.8)
[2020-07-04 09:47] LABS: Metamyelocytes % 8; Myelocytes % 3; Promyelocytes % 2
[2020-07-04 09:49] LABS: Diff Comment Manual Differential; Other Cells % 15; Platelet Count 10 10^3/uL (130-400); RBC Morphology Normal
[2020-07-07 09:11] LABS: Abs Immature Grans 0.26 10^3/uL (0.0-0.06); HCT 26.1 % (36.0-46.0); HGB 8.6 g/dL (11.2-15.7); MCH 29.6 pg (27.0-33.0); MCV 89.7 fL (80-95); MPV 11.3 fL (8.0-11.0); Nucleated RBC 3 %; RBC 2.91 10^6/uL (3.93-5.22); RDW 13.8 % (11.7-14.6); RDW-SD 45.4 fL
[2020-07-07 09:22] LABS: ALT 25 U/L (14-59); AST 14 U/L (15-37); Alkaline Phosphatase 162 U/L (46-116); Anion Gap 9.1 mmol/L (3-11); BUN 14 mg/dL (7-18); Bilirubin, Total 0.4 mg/dL (0.2-1.0); CO2 26.9 mmol/L (21.0-32.0); CREATININE 0.7 mg/dL (0.55-1.02); Calcium 8.7 mg/dL (8.5-10.1); Chloride 103 mmol/L (98-107); Glucose 216 mg/dL (74-106); Potassium 3.5 mmol/L (3.5-5.1); Sodium 139 mmol/L (136-145); Total Protein 6.9 g/dL (6.4-8.2)
[2020-07-07] MEDS: Normal Saline Flush 10 ML SYR IVP (09:24)
[2020-07-07 10:10] LABS: Bands % 1
[2020-07-07 10:21] LABS: Absolute Lymphocyte Count 1.66 10^3/uL (1.2-3.4); Platelet Count 5 10^3/uL (130-400)
[2020-07-07 10:22] LABS: Absolute Monocyte Count 0.58 10^3/uL (0.1-0.8)
[2020-07-07 10:23] LABS: Metamyelocytes % 2; Myelocytes % 6
[2020-07-07 10:24] LABS: Absolute Neutrophil Count 0.36 10^3/uL (1.2-6.7); Diff Comment Manual Differential; RBC Morphology Normal
[2020-07-07 10:25] LABS: Other Cells % 21
[2020-07-07 11:51] VITALS: BP 188/80; PULSE 86; RESP 19; TEMP 37.7; O2SAT 100
[2020-07-07 12:15] VITALS: BP 140/82; PULSE 96; RESP 18; TEMP 36.3; O2SAT 100
[2020-07-11] VITALS (8 sets, daily range): BP systolic 124–171; BP diastolic 71–81; PULSE 84–95; RESP 17–18; TEMP 37.1–37.6; O2SAT 97–100
[2020-07-11] MEDS: Normal Saline Flush 10 ML SYR IVP (09:32)
[2020-07-11 09:36] LABS: Abs Immature Grans 0.91 10^3/uL (0.0-0.06); HCT 23.1 % (36.0-46.0); HGB 7.8 g/dL (11.2-15.7); MCH 29.9 pg (27.0-33.0); MCHC 33.8 % (32.0-36.0); MCV 88.5 fL (80-95); MPV 9.7 fL (8.0-11.0); RBC 2.61 10^6/uL (3.93-5.22); RDW 13.7 % (11.7-14.6); RDW-SD 44.5 fL; WBC 3.82 10^3/uL (4.4-10.8)
[2020-07-11 10:00] LABS: Nucleated RBC 1 %
[2020-07-11 10:04] LABS: Platelet Count 8 10^3/uL (130-400)
[2020-07-11 10:05] LABS: Absolute Lymphocyte Count 1.64 10^3/uL (1.2-3.4); Absolute Neutrophil Count 0.27 10^3/uL (1.2-6.7); Bands % 2
[2020-07-11 10:06] LABS: Absolute Basophil Count 0.04 10^3/uL (0.0-0.2); Absolute Monocyte Count 0.31 10^3/uL (0.1-0.8); Metamyelocytes % 7; Myelocytes % 14; Other Cells % 18; Promyelocytes % 2
[2020-07-11 10:07] LABS: Diff Comment Manual Differential; Polychromasia Present
[2020-07-14 09:10] LABS: Abs Immature Grans 0.14 10^3/uL (0.0-0.06); HCT 24.8 % (36.0-46.0); HGB 8.3 g/dL (11.2-15.7); MCH 29.6 pg (27.0-33.0); MCHC 33.5 % (32.0-36.0); MCV 88.6 fL (80-95); RDW 13.5 % (11.7-14.6); RDW-SD 44.5 fL; WBC 3.85 10^3/uL (4.4-10.8)
[2020-07-14 09:50] LABS: Absolute Basophil Count 0.08 10^3/uL (0.0-0.2); Absolute Eosinophil Count 0.04 10^3/uL (0.0-0.7); Absolute Lymphocyte Count 1.35 10^3/uL (1.2-3.4); Absolute Neutrophil Count 1.04 10^3/uL (1.2-6.7); Bands % 2; Metamyelocytes % 4; Myelocytes % 7; Nucleated RBC 1 %; Promyelocytes % 3
[2020-07-14 09:51] LABS: Other Cells % 8
[2020-07-14 09:54] LABS: Platelet Count 1 10^3/uL (130-400)
[2020-07-14 12:04] VITALS: BP 165/76; PULSE 89; RESP 18; TEMP 37; O2SAT 100
[2020-07-14 12:32] VITALS: BP 149/87; PULSE 92; RESP 18; TEMP 37.2; O2SAT 100
[2020-07-18] VITALS (9 sets, daily range): BP systolic 123–160; BP diastolic 68–84; PULSE 83–93; RESP 12–19; TEMP 37.2–37.6; O2SAT 98–100
[2020-07-18] MEDS: Normal Saline Flush 10 ML SYR IVP (08:51)
[2020-07-18 08:58] LABS: Abs Immature Grans 1.11 10^3/uL (0.0-0.06); HCT 22.8 % (36.0-46.0); HGB 7.7 g/dL (11.2-15.7); MCH 30.1 pg (27.0-33.0); MCHC 33.8 % (32.0-36.0); MCV 89.1 fL (80-95); MPV 12.2 fL (8.0-11.0); Nucleated RBC 2 %; RBC 2.56 10^6/uL (3.93-5.22); RDW 13.2 % (11.7-14.6); RDW-SD 43.9 fL; WBC 4.58 10^3/uL (4.4-10.8)
[2020-07-18 10:11] LABS: Platelet Count 4 10^3/uL (130-400)
[2020-07-18 10:15] LABS: Bands % 3
[2020-07-18 10:16] LABS: Absolute Lymphocyte Count 2.24 10^3/uL (1.2-3.4); Absolute Monocyte Count 0.32 10^3/uL (0.1-0.8); Metamyelocytes % 5; Myelocytes % 11; Promyelocytes % 3
[2020-07-18 10:17] LABS: Other Cells % 14
[2020-07-18 10:19] LABS: Diff Comment Manual Differential; Polychromasia Present
[2020-07-21] MEDS: Normal Saline Flush 10 ML SYR IVP (09:00)
[2020-07-21 09:21] LABS: HCT 26.4 % (36.0-46.0); HGB 8.8 g/dL (11.2-15.7); MCH 28.7 pg (27.0-33.0); MCHC 33.3 % (32.0-36.0); MPV 10.1 fL (8.0-11.0); Nucleated RBC 2 %; RBC 3.07 10^6/uL (3.93-5.22); RDW 14.5 % (11.7-14.6); RDW-SD 45.6 fL; WBC 4.73 10^3/uL (4.4-10.8)
[2020-07-21 10:31] LABS: Platelet Count 18 10^3/uL (130-400)
[2020-07-21 10:32] LABS: Absolute Eosinophil Count 0.05 10^3/uL (0.0-0.7); Absolute Lymphocyte Count 2.55 10^3/uL (1.2-3.4); Absolute Monocyte Count 0.05 10^3/uL (0.1-0.8); Absolute Neutrophil Count 0.71 10^3/uL (1.2-6.7); Atypical Lymphocytes % 3; Bands % 4
[2020-07-21 10:33] LABS: Metamyelocytes % 1; Myelocytes % 12; Promyelocytes % 7
[2020-07-21 10:34] LABS: Other Cells % 9
[2020-07-21 10:35] LABS: Basophilic Stippling Present; Diff Comment Manual Differential
[2020-07-21 12:14] VITALS: BP 127/81; PULSE 91; RESP 18; TEMP 37.5; O2SAT 98
[2020-07-21 13:13] VITALS: BP 120/64; PULSE 60; RESP 16; TEMP 37; O2SAT 97
[2020-07-25 09:21] LABS: HGB 8.1 g/dL (11.2-15.7); MCH 28.3 pg (27.0-33.0); MCHC 32.4 % (32.0-36.0); MCV 87.4 fL (80-95); MPV 10.2 fL (8.0-11.0); Nucleated RBC 2 %; RBC 2.86 10^6/uL (3.93-5.22); RDW 14.1 % (11.7-14.6)
[2020-07-25 09:55] LABS: Platelet Count 7 10^3/uL (130-400)
[2020-07-25 09:56] LABS: Absolute Basophil Count 0.05 10^3/uL (0.0-0.2); Absolute Eosinophil Count 0.05 10^3/uL (0.0-0.7); Absolute Lymphocyte Count 1.67 10^3/uL (1.2-3.4); Absolute Neutrophil Count 0.88 10^3/uL (1.2-6.7); Bands % 2
[2020-07-25 09:57] LABS: Diff Comment Manual Differential; RBC Morphology Normal
[2020-07-25 09:58] LABS: Metamyelocytes % 8; Myelocytes % 13; Promyelocytes % 9
[2020-07-25 13:56] VITALS: BP 118/68; PULSE 90; RESP 18; TEMP 37.2; O2SAT 98
[2020-07-25] MEDS: Normal Saline Flush 10 ML SYR IVP (14:36)
[2020-07-25 14:57] LABS: Other Cells % 14
[2020-07-28] VITALS (14 sets, daily range): BP systolic 111–158; BP diastolic 59–83; PULSE 86–111; RESP 16–20; TEMP 36.4–38; O2SAT 96–100
[2020-07-28 09:27] LABS: Abs Immature Grans 1.39 10^3/uL (0.0-0.06); Absolute Basophil Count 0.07 10^3/uL (0.0-0.2); MCH 28.2 pg (27.0-33.0); MCHC 32.5 % (32.0-36.0); MCV 86.7 fL (80-95); MPV 8.6 fL (8.0-11.0); RBC 2.41 10^6/uL (3.93-5.22); RDW 14.2 % (11.7-14.6); RDW-SD 44.5 fL; WBC 6.94 10^3/uL (4.4-10.8)
[2020-07-28 09:51] LABS: ALT 23 U/L (14-59); AST 17 U/L (15-37); Alkaline Phosphatase 139 U/L (46-116); Anion Gap 8.6 mmol/L (3-11); BUN 22 mg/dL (7-18); Bilirubin, Total 0.4 mg/dL (0.2-1.0); CO2 27.4 mmol/L (21.0-32.0); CREATININE 0.7 mg/dL (0.55-1.02); Calcium 8.7 mg/dL (8.5-10.1); Chloride 100 mmol/L (98-107); Glucose 179 mg/dL (74-106); Magnesium 1.7 mg/dL (1.8-2.4); Potassium 3.6 mmol/L (3.5-5.1); Sodium 136 mmol/L (136-145)
[2020-07-28 10:02] LABS: HGB 6.8 g/dL (11.2-15.7)
[2020-07-28 10:03] LABS: HCT 20.9 % (36.0-46.0); Platelet Count 2 10^3/uL (130-400)
[2020-07-28 10:04] LABS: Bands % 1; Metamyelocytes % 9; Myelocytes % 10; Nucleated RBC 2 %; Other Cells % 2; Promyelocytes % 6
[2020-07-28 10:05] LABS: Basophilic Stippling Present; Hypochromasia 2+
[2020-07-28 10:06] LABS: Anisocytosis 1+; Poikilocytes 1+
[2020-07-28 10:07] LABS: Absolute Monocyte Count 3.19 10^3/uL (0.1-0.8); Diff Comment Manual Differential
[2020-07-28] MEDS: Normal Saline Flush 10 ML SYR IVP (13:17)
== END 2020-07-31 23:59 | disposition home or self-care (01) ==
LOC: INF 09:00
PROVIDERS: Nurse Practitioner Family; PCP Internal Medicine; Visit Provider Internal Medicine Hematology & Oncology
DX: D46.Z Other myelodysplastic syndromes (principal)
CPT/HCPCS: 36430; 36591; 80053; 86850; 86900; 86901; 86920; 86945; 83735; 85025; 86644; P9016; P9035

== ENCOUNTER 2020-08-01 09:00 | Outpatient (RCR) | payer MEDICARE, BC, SELFPAY ==
[2020-08-01] VITALS (11 sets, daily range): BP systolic 108–145; BP diastolic 56–75; PULSE 86–95; RESP 16–20; TEMP 37–38; O2SAT 99–100
[2020-08-01 09:08] LABS: Abs Immature Grans 1.51 10^3/uL (0.0-0.06); HCT 21.2 % (36.0-46.0); HGB 7.1 g/dL (11.2-15.7); MCH 28.6 pg (27.0-33.0); MCHC 33.5 % (32.0-36.0); MCV 85.5 fL (80-95); RBC 2.48 10^6/uL (3.93-5.22); RDW 14.2 % (11.7-14.6); RDW-SD 44.9 fL; WBC 8.28 10^3/uL (4.4-10.8)
[2020-08-01 09:24] LABS: Platelet Count 1 10^3/uL (130-400)
[2020-08-01 09:25] LABS: Absolute Lymphocyte Count 1.66 10^3/uL (1.2-3.4); Absolute Monocyte Count 0.08 10^3/uL (0.1-0.8); Absolute Neutrophil Count 1.82 10^3/uL (1.2-6.7); Bands % 9; Nucleated RBC 2 %
[2020-08-01 09:26] LABS: Diff Comment Manual Differential; Metamyelocytes % 8; Myelocytes % 23; Other Cells % 17; Promyelocytes % 9; RBC Morphology Normal
== END 2020-08-31 23:59 | disposition home or self-care (01) ==
LOC: INF 09:00
PROVIDERS: PCP Internal Medicine; Visit Provider Internal Medicine Hematology & Oncology
DX: D46.Z Other myelodysplastic syndromes (principal)
CPT/HCPCS: 36430; 36591; 86850; 86900; 86901; 86920; 86945; 85025; 86644; P9016; P9035

== ENCOUNTER 2020-08-01 13:35 | Inpatient (IN) | payer MEDICARE, BC, SELFPAY ==
[2020-08-01 13:43] VITALS: BP 143/57; PULSE 97; RESP 16; TEMP 36.1; O2SAT 97
--- NOTE | 2020-08-01 14:19 | ED.GENADUL_ITS ---
Discharge Plan Disposition Condition: Fair Discharge Details Chief Complaint: GenMedical Admit Date/Time: 08/01/20 16:41 Admit Provider: Sara Judd Attending Provider: Sara Judd Primary Care Provider: Kristine Franklin ED Provider: Mari May Discharge Instructions Activity:: Activity as Tolerated Equipment/Supplies:: No Equipment Needed Diet:: As Tolerated Discharge Orders Discharge Orders: Discharge Order (Routine); Ordered 08/04/20 Ordered By: Angela Rodgers Discharge Data Discharge Date/Time-TO BE ENTERED AT DEPARTURE: 08/01/20 14:41 Medical Decision Making Amanda Judd is a 70 y/o woman with myeldodysplastic syndrome, previously receiving frequent PRBC and platelet transfusions now requesting to stop infusions and receive hospice care. Exam is unremarkable. Pt with blood products partially transfused today. Pt requests to receive these last transfusion products. I discussed plan with Dr. Clement, who agrees with transfusion. Plan for admission. Clinical Impression: MDS, visit for hospice care Disposition: [facility] inpatient Medical Records Medical records reviewed: Yes I reviewed the patient's medical records. HPI General Mode of arrival: wheelchair . Date/Time Provider Initiated Documentation: 08/01/20 13:36 . Limitations to Documentation: no limitations . Information obtained by: patient, RN/MD, RN notes reviewed and old records reviewed . HPI Narrative: Amanda Judd is a 70-year-old woman with a history of anemia, thrombocytopenia, myelodysplastic syndrome, endometrial and breast cancer in the past presenting to the emergency department for hospice. Patient is chronically anemic and thrombocytopenic secondary to myelodysplastic syndrome. She received platelet and blood transfusions weekly. Patient was receiving her weekly blood transfusion today in the infusion center, and discussed with caregivers that she would prefer to be admitted to hospice. Patient reports to me that she has been having increased bleeding over the past few weeks including intermittent nosebleeds, blood in her urine, and bleeding from a sore on the inside of her mouth. She denies any active bleeding currently other than hematuria. Patient states to me that she lives in [place] and is concerned about being 45 minutes away from the hospital with the recent worsening in her breathing. She denies pain, fevers, vomiting, diarrhea, cough, shortness of breath. She does report generalized weakness. No acute complaint. I discussed patient with Dr. Clement who sent patient to emergency department for admission. Dr. Clement reports that patient is wanting to transition to hospice or comfort care and is wanting to stop her weekly infusions. Dr. Clement does advise given the remainder of the blood products that were due to be transfused today, which includes 1 unit PRBCs and 1 unit of platelets. Patient is amenable to this plan. Related Data Home Medications Medication Instructions Recorded Confirmed magnesium oxide 400 mg PO DAILY 03/24/20 08/04/20 omeprazole 20 mg PO DAILY 03/24/20 08/04/20 acetaminophen [Tylenol] 650 mg PO PRN PRN 06/05/20 08/04/20 docusate sodium 50 mg PO DAILY PRN 06/19/20 08/04/20 lidocaine 5 % topical patch 2 patch TOPICAL DAILY #2 ea 07/08/20 08/04/20 diphenhydramine HCl [Benadryl] 25 mg PO PRN PRN 08/01/20 08/04/20 Previous Rx's Medication Instructions Recorded lidocaine 5 % topical patch 2 patch TOPICAL DAILY #2 ea 07/08/20 Allergies Allergy/AdvReac Type Severity Reaction Status Date / Time No Known Allergies Allergy Unverified 08/01/20 13:47 General Stated Complaint: GenMedical SHILPA: 3 Review of Systems Narrative: Constitutional: denies fevers, reports fatigue Eyes: denies eye pain ENT: denies ear pain, dental pain, sore throat, oral or nasal bleeding Cardiovascular: denies chest pain Respiratory: denies SOB, cough GI: denies abdominal pain, vomiting, diarrhea, melena : denies flank pain MSK: denies back pain, neck pain, arthralgias, myalgias Skin: denies rash Neuro: denies headaches, numbness, weakness PFSH Medical History Anemia Breast cancer, left Delirium Dying care Endometrial cancer Follicular lymphoma Knee pain, bilateral Myelodysplastic syndrome Neutropenia POLST (Physician Orders for Life-Sustaining Treatment) Thrombocytopenia Surgical History H/O: hysterectomy Social History Smoking/Tobacco Use Status: Never Smoking risk assessment performed?: Yes Alcohol Intake: never Drug use: Never Substance use type: does not use Current gender identity: female Do you feel safe at home: Yes Do you feel safe in your relationship?: Yes Exam Narrative Exam Narrative: Constitutional: [id number], pleasant, conversing normally HENT: head atraumatic/normocephalic/normal inspection, mucous membranes moist, no bleeding from gingiva Eyes: conjunctiva normal, sclera normal, pupils 3mm b/l Neck: no stridor, normal ROM, trachea midline Chest: normal inspection Resp: normal work of breathing, speaking in full sentences Cardio: normal rate, normal rhythm GI: abdomen soft, non-tender, non-distended Skin: warm, dry, normal color, no rash Neuro: alert, not altered, grossly non-focal, normal tone Ext: no edema Psych: normal mood, normal affect, normal behavior Course Vital Signs Vital signs: Vital Signs Temperature 36.1 C L 08/01/20 13:43 Pulse 97 H 08/01/20 13:43 Respiratory Rate 16 08/01/20 13:43 Blood Pressure 143/57 H 08/01/20 13:43 Pulse Oximetry 97 08/01/20 13:43 Temperature 36.1 C L 08/01/20 13:43 Temperature Source Temporal Artery Scan 08/01/20 13:43 Pulse 97 H 08/01/20 13:43 Respiratory Rate 16 08/01/20 13:43 Blood Pressure 143/57 H 08/01/20 13:43 Blood Pressure Position Supine 08/01/20 13:43 Pulse Oximetry 97 08/01/20 13:43 Oxygen Delivery Method Room Air 08/01/20 13:43 Oxygen Flow Rate 0 08/01/20 13:43 Pain Level 0 08/01/20 13:43
[2020-08-01 15:20] VITALS: BP 134/72; PULSE 92; RESP 17; TEMP 36.6; O2SAT 99
--- NOTE | 2020-08-01 16:29 | W.PM.HP.N ---
Date of service: 08/01/20 Time of Service: 16:29 Assessment and Plan Assessment and plan (1) Myelodysplastic syndrome: Start date: 08/01/20 Start time: 16:37 Status: Acute Assessment and plan: She was receiving weekly infusions and stated that she would know when it was time to stop and her body would tell her when it was time to . Today she stated she is ready to go on hospice. however she does not want to at home. She has been asked to be admitted for comfort measures She is not having any pain at this time She is receiving blood transfusion and platelets this will be her last transfusion and she will have no blood draws or transfusions going forward Dr. Duran will see her tonight she is a DNR/DNI Pain will be managed along with anxiety. (2) Comfort measures only status: Start date: 08/01/20 Start time: 16:41 Status: Acute Assessment and plan: as above above case discussed with Dr. Judd History of Present Illness History of Present Illness Chief Complaint: MDS, [employer]IP[employer] G[employer] Narrative: 70 y.o female with PMH of MDS, anemia, presents to infusion room for platelets and blood when she decided she no longer wanted to go through infusions and her body was telling her it was time to stop. She presented to ED with infusion for hospice care. She was not yet on hospice. We were called by Dr. Adhikari that patient had decided she wanted to go CM and wanted to in the hospital and not at home. We were asked to admit for further management. I explained to patient that we would no longer be doing lab draws and infusions. Dr. Adhikari would be seeing her tonight and she was ok with that. She would likely have days to a week to live given that she would not be receiving transfusions. She understands. She feels exhausted and weak. Her platelets continue to drop and they are not maintaining over platelet level of 1. Explained that she will be allowed to have 2 people with her she wants her and friend Krystina and also her home care consultant. She understands that if she needs something for pain or anxiety it will be made available. Review of Systems All systems reviewed & are unremarkable except as noted in HPI and below COUNT INCLUDES [facility] Medical History Anemia Breast cancer, left Endometrial cancer Follicular lymphoma Knee pain, bilateral Myelodysplastic syndrome Neutropenia POLST (Physician Orders for Life-Sustaining Treatment) Thrombocytopenia Surgical History H/O: hysterectomy Social History Smoking/Tobacco Use Status: Never Smoking risk assessment performed?: Yes Alcohol Intake: never Drug use: Never Substance use type: does not use Current gender identity: female Do you feel safe at home: Yes Do you feel safe in your relationship?: Yes Meds Home Medications and Allergies Allergies Allergy/AdvReac Type Severity Reaction Status Date / Time No Known Allergies Allergy Unverified 08/01/20 13:47 Home Medications Medication Instructions Recorded Confirmed Type acyclovir 400 mg PO BID 03/24/20 08/01/20 History magnesium oxide 400 mg PO DAILY 03/24/20 08/01/20 History omeprazole 20 mg PO DAILY 03/24/20 08/01/20 History levofloxacin 500 mg PO .NOON DAILY 05/01/20 08/01/20 History acetaminophen [Tylenol] 650 mg PO PRN PRN 06/05/20 08/01/20 History docusate sodium 50 mg PO DAILY PRN 06/19/20 08/01/20 History lidocaine 5 % topical patch 2 patch TOPICAL DAILY #2 ea 07/08/20 08/01/20 Rx diphenhydramine HCl [Benadryl] 25 mg PO PRN PRN 08/01/20 08/01/20 History Exam Narrative Exam Narrative: Elderly female appearing younger than stated age. She does appear to be exhausted pale. She states she has been having profuse nose bleeds though none at this time. She is AAOx 3, she does appear comfortable. HR RRR, LSC, BSx4. Skin intact. She is CM and will be made comfortable. Results Labs Labs: Laboratory Results - last 24 hr 08/01/20 14:32 COVID-19 Source Nasopharyx Last Vital Signs Temp 36.6 C 08/01/20 15:20 Pulse 92 H 08/01/20 15:20 Resp 17 08/01/20 15:20 BP 134/72 08/01/20 15:20 Pulse Ox 99 08/01/20 15:20 COVID-19 Screening Have you, or household traveled for leisure in last 14 days?: No Had IN PERSON contact w/suspected or confirmed C-19 person: No
[2020-08-01 19:18] LABS: COVID-19 PCR Negative (Negative)
[2020-08-01] MEDS: Normal Saline Flush 10 ML SYR IVP (19:50)
--- NOTE | 2020-08-01 20:42 | W.PALLCONSUL ---
Date of service: 08/01/20 Time of Service: 17:42 History of Present Illness Narrative: Amanda is a 70-year-old woman with myelodysplastic disorder. She has been transfusion dependent twice weekly for the last year. Today she decided she can no longer do this. She gets 1 good day and then is miserable for the next 2 days with weakness and fatigue. Today she had bleeding around her nose gums and in her urine. She wants to be admitted to the hospital and . Her , per Amanda, is finally on board with this. I was called from the infusion room. Amanda's platelets were less than 1. They had spoken with Carey and her and said that Amanda was ready to be admitted to the hospital. They did not feel that further transfusions would be helpful. Since Carey was a palliative patient I could not directly admit her. She went to the ER and was admitted on the hospitalist service Amanda is a dynamic woman she has 3 children, some live in the area, and a best friend named Krystina. Her plan is to be in the hospital until she dies. She would expect that over the next couple of days that she will become weakened, and sets August 06 as her day today. Based on profuse bleeding a few days after her transfusions she feels that this would be the best way to move. She normally sees Yvette Toscano NP and is anxious to talk with her. I am seeing Amanda as this is Yvette's day off. Amanda can clearly tell me what her problem is, she is accurate with historical details, and also understands her impending . She has capacity to make her decisions. Consults Consult date: 08/01/20 Requesting physician: Sara Judd Assessment and Plan Assessment and plan (1) Myelodysplastic syndrome: Status: Acute (2) Neutropenic fever: Status: Acute (3) Thrombocytopenia: Status: Chronic (4) Anemia: Status: Chronic Qualifiers: Anemia type: bone marrow failure Bone marrow failure anemia type: pancytopenia, other Qualified Code(s): D61.818 - Other pancytopenia (5) Palliative care patient: Status: Acute Assessment and plan: Amanda is very clear that at this point she wants to stay in the hospital expecting to in about 5 days. Her friend Krystina's birthday is on August 06 and that is when she expects the event to happen. She is not happy about this but is at peace with that. We also spoke about how we can make Amanda's time here the best possible. Amanda would like to be in a bakari room. We have spoken with the nurse insecticide supervisor and we hope to move her tomorrow to the other side of the building so she can experience sunshine, if we have it We will also get a cart in for her and she understands that there will be a bed there for him. He is coming tomorrow morning. She understands that she can have 2 visitors. They have to be the same to visitors. She already had a transfusion in place at the time that I was called fromThe infusion room plan is to continue this knowing that she will have a good day tomorrow and then it will be downhill. Review of Systems Narrative: Amanda says thankfully she is not in pain, she just becomes weak, has little appetite. She has lost 25 pounds in the last year. Constitutional Constitutional: Reports anorexia, Reports fever(s), Reports lethargy, Reports poor appetite, Reports weakness and Reports weight loss Neurologic Neurologic: Reports weakness PFSH Medical History Anemia Breast cancer, left Endometrial cancer Follicular lymphoma Knee pain, bilateral Myelodysplastic syndrome Neutropenia POLST (Physician Orders for Life-Sustaining Treatment) Thrombocytopenia Surgical History H/O: hysterectomy Social History Smoking/Tobacco Use Status: Never Smoking risk assessment performed?: Yes Alcohol Intake: never Drug use: Never Substance use type: does not use Current gender identity: female Do you feel safe at home: Yes Do you feel safe in your relationship?: Yes Exam Narrative Exam Narrative: Amanda is sitting in bed. She does put a mask on when we come in the room. I am meeting with her, her nurse Liam, and medical student Julieta. She can clearly recite the history of her disease. Her voice is firm and clear HENMT Mouth: oral mucosa abnormal (Presently not bleeding.) and other (Left cheek has a bruise from her biting her cheek in the night.) Eyes General: appearance normal, both eyes and all related structures Resp Effort & Inspection: normal respiratory effort and able to speak in complete sentences Cardio Rhythm: regular rhythm Heart Sounds: murmur Results Last Vital Signs Temp 97.9 F 08/01/20 15:20 Pulse 92 H 08/01/20 15:20 Resp 17 08/01/20 15:20 BP 134/72 08/01/20 15:20 Pulse Ox 99 08/01/20 15:20 Labs Labs: Laboratory Results - last 24 hr 08/01/20 14:32 COVID-19 Source Nasopharyx SARS-CoV-2 (PCR) Negative
[2020-08-02 07:30] VITALS: BP 131/74; PULSE 88; RESP 18; TEMP 36.8; O2SAT 99
--- NOTE | 2020-08-02 07:56 | PDOC.CMIN ---
- If Service Date Differs Date of service: 08/02/20 Time of Service: 07:59 Care Management Initial Assess REASON FOR HOSPITALIZATION:: Thrombocytopenia, Anemia, MDS PAST MEDICAL HISTORY/PAST SURGICAL HISTORY:: Anemia. Breast cancer, left. Endometrial cancer. Follicular lymphoma. Knee pain, bilateral. Myelodysplastic syndrome. Neutropenia. POLST (Physician Orders for Life-Sustaining Treatment). Thrombocytopenia. hysterectomy PREVIOUS FUNCTIONAL STATUS/SOCIAL/FAMILY SUPPORTS:: Amanda resides in [place] with her , Jayce. She has been struggling wtih life limiting disease and has decided she is ready to stop treatments and transition to comfort measures care. CURRENT FUNCTIONAL STATUS:: Amanda was sitting up in bed, her sitting at her bedside when CM met with them. Amanda expressed gratitude for her care, and was pleasant in interaction. CM reviewed comfort care information, visitation policy and answered questions that arose. Amanda had a binder with her final wishes outlined including her service wishes and obituary. She has chosen [facility] in [place], [place]. CM notified JAMAR Alston and Lila; community chest officer of patient wishes. ADVANCE DIRECTIVES:: COLST on file. Has patient been provided with info about the portal/API?: Yes Did the patient sign up for the portal?: Yes (Previously) CODE STATUS:: DNR/DNI INSURANCE COVERAGE / FINANCIAL ISSUES:: Medicare. BC/BS FEP CURRENT HOME/COMMUNITY SERVICES/EQUIPMENT:: She was receiving weekly infusions and stated that she would know when it was time to stop and her body would tell her when it was time to . She has stated she is ready for hospice, and comfort care at this time. PRIMARY CARE PHYSICIAN:: Kristine Franklin POTENTIAL DISCHARGE NEEDS:: Determine final arrangements, end of life care plan; Palliative Care. PATIENT/FAMILY EDUCATION NEEDS:: Support with end of life discussions, review service options. ANTICIPATED BARRIERS TO DISCHARGE:: None identified. TRANSPORTATION:: Dependent on disposition. PLAN:: Amanda has been admitted for comfort care, to remain at [facility] for end of life care. She has chosen [facility] in [place] for final arrangements. CM notified JAMAR Alston of patient choice. CM will continue to follow and support Amanda and her family.
--- NOTE | 2020-08-02 12:53 | W.PM.PROGNOT ---
Date of Service Date of service: 08/02/20 Time of Service: 12:53 Assessment and Plan Assessment and plan (1) Myelodysplastic syndrome: Status: Acute Assessment and plan: She will remain here for comfort measures She is not having any pain at this time palliative care following she is a DNR/DNI routine end of life care (2) Neutropenic fever: Status: Resolved Assessment and plan: as above (3) Thrombocytopenia: Status: Chronic Assessment and plan: no further labs or transfusions (4) Anemia: Status: Chronic Assessment and plan: no further labs or transfusions discussed with DR Judd Qualifiers: Anemia type: bone marrow failure Bone marrow failure anemia type: pancytopenia, other Qualified Code(s): D61.818 - Other pancytopenia Subjective Subjective Patient reports: no new complaints Interval history since last seen: no pain Exam HENMT Mouth: oral mucosa abnormal (Presently not bleeding.) Eyes General: appearance normal, both eyes and all related structures Resp Effort & Inspection: normal respiratory effort and able to speak in complete sentences Cardio Rhythm: regular rhythm Heart Sounds: murmur Objective Last Vital Signs Temp 36.8 C 08/02/20 07:30 Pulse 88 08/02/20 07:30 Resp 18 08/02/20 07:30 BP 131/74 08/02/20 07:30 Pulse Ox 99 08/02/20 07:30 Laboratory Results - last 24 hr 08/01/20 14:32 COVID-19 Source Nasopharyx SARS-CoV-2 (PCR) Negative
--- NOTE | 2020-08-02 13:17 | PCPN_ITS ---
Date of service: 08/02/20 Time of Service: 12:17 Assessment and Plan Assessment and plan (1) Myelodysplastic syndrome: Status: Acute (2) Palliative care patient: Status: Acute Assessment and plan: More specifically about continuing her omeprazole. I think it is reasonable since it gives her comfort. I am going to start that back up today. She is on dexamethasone. I think in a day or 2 it be reasonable to stop this. She is much happier in this on the room. She is very content and peaceful with her decision to stay in the hospital until she dies Subjective Subjective Interval history since last seen: She has moved into a bakari room and it has bee n more enjoyable. She saw the sun come up today. Her is with her. She wishes she had a smaller wheelchair. She is happy with her lunch. She was very happy to hear that Yvette may be coming in to see her today or tomorrow. Exam Narrative Exam Narrative: Reclining in bed with her food there. I offered to come back but she covered it up and said that it would stay warm. Her is by her side. She is smiling laughing and at times does get weepy. She is talking in complete sentences her lips are flush with color. Her eyes are clear. She states that she has had some urination with blood in it. Objective Last Vital Signs Temp 98.2 F 08/02/20 07:30 Pulse 88 08/02/20 07:30 Resp 18 08/02/20 07:30 BP 131/74 08/02/20 07:30 Pulse Ox 99 08/02/20 07:30 Laboratory Results - last 24 hr 08/01/20 14:32 COVID-19 Source Nasopharyx SARS-CoV-2 (PCR) Negative
--- NOTE | 2020-08-02 14:21 | PHACLINREV_ITS ---
Pharmacy Admission Review - Admission Clinical Review (Last Reviewed 08/01/20 @ 16:35 by Blanca Mo NP) Palliative care patient (Acute) Comfort measures only status (Acute) Myelodysplastic syndrome (Acute) No Known Allergies Allergy (Unverified 08/01/20 13:47) Height 5 ft 1.81 in Weight 50.8 kg - Renal Dosing Medications needing adjustments: Reviewed (last SCr 07/28/20 current meds okay based on that value) - Anticoagulation DVT Prohphylaxis: N/A Therapeutic Anticoagulation: N/A - Opiate Usage Evaluate Pain Scale/Pains Meds: Reviewed Scheduled Bowel Reg ordered if on Opiates?: Yes - Relevant Labs Electrolytes, C-Reactive P, ESR: N/A - DM Control Insulin Dosing: N/A - Heart Failure/PR EF%, STEPHEN's, B-Blockers, Diuretics: N/A - BP Control BP Control: Blood Pressure 131/74 If elevated: Reviewed - Qtc Review If Elevated: N/A - IV to PO Switch IV Medications: Reviewed - Home Meds Home Med List reviewed: Reviewed (Separate admin of magnesium from le vofloxacin.) Relevent Home Meds Not ordered & why?: acyclovir, diphenhydramine, levofloxacin, lidocaine patch, magnesium (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 Watch for med changes.
--- NOTE | 2020-08-02 14:22 | CHAPLAIN ---
Amanda was visiting with her when I visited. I explained my role and offered support. Amanda seemed comfortable and liked that the sun was coming in the window. She is from [place], but has be coming to our infusion room twice a week now and has decided to stop getting transfusion and that is expected to cause her . Dr. Clement met with Amanda and her yesterday, and Yvette Nielsen, GI, has been following her for several months for palliative care. I will continue to visit.
--- NOTE | 2020-08-03 07:56 | CMPROGNOTE_ITS ---
Care Management Progress Note S/O: Amanda remains alert and oriented, her at her bedside. She is pleasant in interaction and reports being comfortable. CM continues to follow. A: 70 year old admitted to [facility] 08/01/20 for End of life care. P: Amanda has been admitted for comfort care, to remain at [facility] for end of life care. She has chosen [facility] in [place] for final arrangements. CM notified MARIA DEL ROSARIO AlstonCC of patient choice. CM will continue to follow and support Amanda and her family.
--- NOTE | 2020-08-03 07:56 | PDOC.CMPRO ---
Care Management Progress Note S/O: Amanda remains alert and oriented, her at her bedside. She is pleasant in interaction and reports being comfortable. CM continues to follow. A: 70 year old admitted to [facility] 08/01/20 for End of life care. P: Amanda has been admitted for comfort care, to remain at [facility] for end of life care. She has chosen [facility] in [place] for final arrangements. CM notified MARIA DEL ROSARIO AlstonCC of patient choice. CM will continue to follow and support Amanda and her family.
--- NOTE | 2020-08-03 11:06 | W.PM.PROGNOT ---
Date of Service Date of service: 08/03/20 Time of Service: 11:06 Assessment and Plan Assessment and plan (1) Myelodysplastic syndrome: Status: Acute Assessment and plan: She will remain here for comfort measures She is not having any pain at this time palliative care following she is a DNR/DNI routine end of life care (2) Neutropenic fever: Status: Resolved Assessment and plan: as above (3) Thrombocytopenia: Status: Chronic Assessment and plan: no further labs or transfusions (4) Anemia: Status: Chronic Assessment and plan: no further labs or transfusions discussed with DR Judd Qualifiers: Anemia type: bone marrow failure Bone marrow failure anemia type: pancytopenia, other Qualified Code(s): D61.818 - Other pancytopenia Subjective Subjective Patient reports: no new complaints, tolerating liquids well and tolerating a regular diet Interval history since last seen: no pain Exam HENMT Mouth: oral mucosa abnormal (Presently not bleeding.) Eyes General: appearance normal, both eyes and all related structures Resp Effort & Inspection: normal respiratory effort and able to speak in complete sentences Cardio Rhythm: regular rhythm Heart Sounds: murmur Objective Last Vital Signs Temp 36.8 C 08/02/20 07:30 Pulse 88 08/02/20 07:30 Resp 18 08/02/20 07:30 BP 131/74 08/02/20 07:30 Pulse Ox 99 08/02/20 07:30
--- NOTE | 2020-08-03 16:11 | CHAPLAIN ---
I visited with Amanda this morning. Her had just left to return home, and Amanda's friend Krystina was on her way to be with Amanda. Amanda was very up front about her decision to stop having transfusions, know that this will lead her her during this admission. She has a notebook with her that contains all the information about the home home she has chosen, and next steps after that. She said her son, who was in his 30s, unexpectedly four years ago, and at that time her took care of all the details surrounding his , and Amanda wanted to be able to do this for him this time so he won't have to worry about anything. Amanda talked about having a very fulfilling life, enjoying time with her grandchildren (although she hasn't been able to see them in months due to the pandemic) and being a peace with her decision. She has a few close friends, especially Krystina, who are supportive. Amanda said her has been close by continually, and sometime she needs time to herself so she uses the time when he falls asleep and she's still awake. They were members of the community voodoo near them, and then that voodoo relocated. I offered a prayer with Amanda before leaving.
--- NOTE | 2020-08-04 08:15 | CMPROGNOTE_ITS ---
Care Management Progress Note S/O: Amanda remains alert and oriented, her at her bedside. She is pleasant in interaction and reports being comfortable. CM continues to follow. A: 70 year old admitted to [facility] 08/01/20 for End of life care. P: Amanda has been admitted for comfort care, to remain at [facility] for end of life care. She has chosen [facility] in [place] for final arrangements. CM notified MARIA DEL ROSARIO AlstonCC of patient choice. CM will continue to follow and support Amanda and her family.
--- NOTE | 2020-08-04 08:15 | PDOC.CMPRO ---
Care Management Progress Note S/O: Amanda remains alert and oriented, her at her bedside. She is pleasant in interaction and reports being comfortable. CM continues to follow. A: 70 year old admitted to [facility] 08/01/20 for End of life care. P: Amanda has been admitted for comfort care, to remain at [facility] for end of life care. She has chosen [facility] in [place] for final arrangements. CM notified MARIA DEL ROSARIO AlstonCC of patient choice. CM will continue to follow and support Amanda and her family.
--- NOTE | 2020-08-04 08:45 | CMPROGNOTE_ITS ---
- If Service Date Differs Date of service: 08/04/20 Time of Service: 08:45 Care Management Progress Note Amanda will enter [facility] for nursing home care to provide end of life care. She [facility] in [place] for final arrangements.
--- NOTE | 2020-08-04 08:45 | PDOC.CMPRO ---
- If Service Date Differs Date of service: 08/04/20 Time of Service: 08:45 Care Management Progress Note Amanda will enter [facility] for retirement care to provide end of life care. She has chosen [facility] in [place] for final arrangements.
--- NOTE | 2020-08-04 10:30 | DSE_ITS ---
Date of service: 08/04/20 Time of Service: 10:35 DS: Diagnosis Discharge Diagnosis (1) Myelodysplastic syndrome: Status: Acute (2) Neutropenic fever: Status: Resolved (3) Thrombocytopenia: Status: Chronic (4) Anemia: Status: Chronic Discharge Plan Disposition Patient Disposition: [facility] SWING BED LEVEL 1 Condition: Fair Discharge Details Reason For Visit: THROMBOCYTOPENIA, ANEMIA, MDS Admit Date/Time: 08/01/20 14:07 Admit Provider: Sara Judd Attending Provider: Sara Judd Primary Care Provider: Kristine Franklin [place] [facility] Course Hospital Course: This is a 70 y.o female with PMH of MDS, anemia, who presented to infusion room as scheduled for platelets and blood when she decided she no longer wanted to go through infusions and her body was telling her it was time to stop. She was referred to the ED for hospice care. She was not yet on hospice. Dr. Adhikari was consulted and decision was made that she wanted to go on comfort measures and wanted to in the hospital and not at home. She was admitted to med/surg on hospitalist services for further management. Dr Clement continued to follow and patient was placed on comfort measures only for end of life care. she has remained comfortable with no c/o. plan now is to discharge to swing level care to continue her end of life care. discussed with DR Judd Home Meds and New Rx's Prescriptions: No Action lidocaine [Lidoderm] 5 % adhesive patch,medicated 2 patch topical DAILY Qty: 2 RF: 0 acyclovir 400 mg tablet 400 mg PO BID RF: 0 magnesium oxide 400 mg (241.3 mg magnesium) tablet 400 mg PO DAILY RF: 0 omeprazole 20 mg capsule,delayed release(DR/EC) 20 mg PO DAILY RF: 0 levofloxacin 500 mg Tablet 500 mg PO .NOON DAILY RF: 0 acetaminophen [Tylenol] 325 mg Capsule 650 mg PO PRN PRNRF: 0 docusate sodium 50 mg Capsule 50 mg PO DAILY PRNRF: 0 diphenhydramine HCl [Benadryl] 25 mg Capsule 25 mg PO PRN PRNRF: 0 Discharge Instructions Activity:: Activity as Tolerated Equipment/Supplies:: No Equipment Needed Diet:: As Tolerated Discharge Orders Discharge Orders: Discharge Order (Routine); Ordered 08/04/20 Ordered By: Angela Rodgers DS: Summary Time Spent with Patient providing and/or coordinating discharge services: Greater than 30 minutes Status at Discharge Functional status at discharge: independent ambulation Overall status at discharge: patient is not back to baseline Mental Status: mental status grossly normal Speech and Movement: speech and movement normal Mood: congruent mood Affect: normal affect Exam HENMT Mouth: oral mucosa abnormal (Presently not bleeding.) Eyes General: appearance normal, both eyes and all related structures Resp Effort & Inspection: normal respiratory effort and able to speak in complete sentences Cardio Rhythm: regular rhythm Heart Sounds: murmur Psych Mental Status: mental status grossly normal Speech and Movement: speech and movement normal Mood: congruent mood Affect: normal affect DS: Data Vitals/I&O Vitals and I&O: Vital Signs Temperature 36.8 C 08/02/20 07:30 Temperature Source Skin 08/02/20 07:30 Pulse 88 08/02/20 07:30 Pulse Rhythm Regular 08/01/20 15:20 Respiratory Rate 18 08/02/20 07:30 Respiratory Effort Non-Labored 08/01/20 15:20 Respiratory Depth Normal 08/01/20 15:20 Respiratory Pattern Normal 08/01/20 15:20 Blood Pressure 131/74 08/02/20 07:30 Blood Pressure Position Supine 08/01/20 13:43 Pulse Oximetry 99 08/02/20 07:30 Oxygen Delivery Method Room Air 08/02/20 07:30 Oxygen Flow Rate 0 08/02/20 07:30 Pain Level 0 08/03/20 09:20 Intake & Output 08/03/20 08/03/20 08/04/20 11:59 23:59 11:59 Intake Total 240 / 480 240 / 480 240 / 240 Balance 240 / 480 240 / 480 240 / 240 Intake: Oral 240 / 480 240 / 480 240 / 240 Other: Urine Color Yellow Urine Appearance Hematuria Urine Odor Normal Comment Patient uses bathroom independently, reports normal urination. Patient uses bathroom independently. Patient uses bathroom independently. Voiding Methods Toilet [facility] Medical History Anemia Breast cancer, left Endometrial cancer Follicular lymphoma Knee pain, bilateral Myelodysplastic syndrome Neutropenia POLST (Physician Orders for Life-Sustaining Treatment) Thrombocytopenia Surgical History H/O: hysterectomy Social History Smoking/Tobacco Use Status: Never Smoking risk assessment performed?: Yes Alcohol Intake: never Drug use: Never Substance use type: does not use Current gender identity: female Do you feel safe at home: Yes Do you feel safe in your relationship?: Yes
== END 2020-08-04 11:53 | disposition swing bed (61) | DRG 812 ==
LOC: ER 14:02 → MS 14:58
PROVIDERS: Admitting Provider Internal Medicine; Emergency Provider Student in an Organized Health Care Education/Training Program; PCP Internal Medicine; Visit Provider Internal Medicine
DX: D46.9 Myelodysplastic syndrome, unspecified (principal); D61.818 Other pancytopenia; D70.9 Neutropenia, unspecified; R50.81 Fever presenting with conditions classified elsewhere; D63.8 Anemia in other chronic diseases classified elsewhere; D69.6 Thrombocytopenia, unspecified; Z85.3 Personal history of malignant neoplasm of breast; Z85.42 Personal history of malignant neoplasm of other parts of uterus; Z66 Do not resuscitate; Z51.5 Encounter for palliative care
CPT/HCPCS: 36430; 36591; 86850; 86900; 86901; 86920; 86945; 99223; 99232; 99239; 99255; 99285; 85025; 99284; P9016; P9035

== ENCOUNTER 2020-08-04 11:42 | Inpatient (IN) | payer MEDICARE, BC, SELFPAY ==
--- NOTE | 2020-08-04 10:41 | CM.SBPSYCH ---
- If Service Date Differs Date of service: 08/04/20 Time of Service: 16:53 SB Psychosocial/Act.Assessment - Hospital Admission Admission Date: 08/01/20 Admission From:: Home Diagnosis:: Thrombocytopenia, Anemia, MDS - Swing Bed Admission Swing Bed Admit Date:: 08/04/20 Swing Bed Level of Care: Level 1/SNF - Social Supports PREVIOUS FUNCTIONAL STATUS/SOCIAL/FAMILY SUPPORTS:: Amanda resides in [place] with her , Jayce. She has been struggling wtih life limiting disease and has decided she is ready to stop treatments and transition to comfort measures care. - [place]: No [place] Spouse: No - Benefits Financial: Medicare, Commerical (BC/BS FEP ) - Mandaen Active Worship Member:: No Will Worship Members or Waiter/Waitress Head Visit:: No - Advance Directives for Healthcare Advance Directives for Healthcare: Advance Directives (COLST) Advance Directive Agent: Eduardo - Medical History PAST MEDICAL HISTORY/PAST SURGICAL HISTORY:: Anemia. Breast cancer, left. Endometrial cancer. Follicular lymphoma. Knee pain, bilateral. Myelodysplastic syndrome. Neutropenia. POLST (Physician Orders for Life-Sustaining Treatment). Thrombocytopenia. hysterectomy - Admission Data Reason for Swing Bed Admission:: End of life RN care. Discharge Plan:: Amanda will remain at [facility] for End of Life Care. She has chosen [facility] for final arrangments. Convertible Power Shovel Operator: Sarah Rich Date Assessment was completed:: 08/04/20
--- NOTE | 2020-08-04 10:42 | CM.SWINGPC ---
- If Service Date Differs Date of service: 08/04/20 Time of Service: 17:01 Swingbed Plan of Care Plan of care: SWING BED PROGRAM ACTIVITIES/DISCHARGE PLAN OF CARE ACTIVITIES PLAN Date: 08/04/20 Identified Need: Comfort and support for Amanda and her significant other during transition through End of Life. Intervention/Plan: Hospice CART, items of comfort, Palliative visits, Data Examination Clerk visits, CM visits, two in person visitors; Gagandeep. Initials: DALE DISCHARGE PLAN Date: 08/04/20 Identified Need: End of Life Care Intervention/Plan: Medications and treatment aimed at providing comfort for end of life care. Initials: DALE
--- NOTE | 2020-08-04 11:38 | HPE_ITS ---
Date of service: 08/04/20 Time of Service: 11:38 Assessment and Plan Assessment and plan (1) Myelodysplastic syndrome: Status: Acute Assessment and plan: She will remain here for end of life care and comfort measures She is not having any pain at this time palliative care following she is a DNR/DNI (2) Comfort measures only status: Status: Acute History of Present Illness History of Present Illness Chief Complaint: myelodysplastic syndrome, end of life care Narrative: This is a 70 y.o female with PMH of MDS, anemia, who presented to infusion room as scheduled for platelets and blood when she decided she no longer wanted to go through infusions and her body was telling her it was time to stop. She was referred to the ED for hospice care. She was not yet on hospice. Dr. Adhikari was consulted and decision was made that she wanted to go on comfort measures and wanted to in the hospital and not at home. She was admitted to med/surg on hospitalist services for further management. Dr Clement continued to follow and patient was placed on comfort measures only for end of life care. she has remained comfortable with no c/o. plan now is to admit to [facility] level care to continue her end of life care. discussed with DR Judd Review of Systems All systems reviewed & are unremarkable except as noted in HPI and below PFSH Medical History Anemia Breast cancer, left Endometrial cancer Follicular lymphoma Knee pain, bilateral Myelodysplastic syndrome Neutropenia POLST (Physician Orders for Life-Sustaining Treatment) Thrombocytopenia Surgical History H/O: hysterectomy Social History Smoking/Tobacco Use Status: Never Smoking risk assessment performed?: Yes Alcohol Intake: never Drug use: Never Substance use type: does not use Current gender identity: female Do you feel safe at home: Yes Do you feel safe in your relationship?: Yes Meds Home Medications and Allergies Allergies Allergy/AdvReac Type Severity Reaction Status Date / Time No Known Allergies Allergy Unverified 08/01/20 13:47 Home Medications Medication Instructions Recorded Confirmed Type acyclovir 400 mg PO BID 03/24/20 08/01/20 History magnesium oxide 400 mg PO DAILY 03/24/20 08/01/20 History omeprazole 20 mg PO DAILY 03/24/20 08/01/20 History levofloxacin 500 mg PO .NOON DAILY 05/01/20 08/01/20 History acetaminophen [Tylenol] 650 mg PO PRN PRN 06/05/20 08/01/20 History docusate sodium 50 mg PO DAILY PRN 06/19/20 08/01/20 History lidocaine 5 % topical patch 2 patch TOPICAL DAILY #2 ea 07/08/20 08/01/20 Rx diphenhydramine HCl [Benadryl] 25 mg PO PRN PRN 08/01/20 08/01/20 History Exam Narrative Exam Narrative: JAZZFL Mouth: oral mucosa abnormal (Presently not bleeding.) Eyes General: appearance normal, both eyes and all related structures Resp Effort & Inspection: normal respiratory effort and able to speak in complete sentences Cardio Rhythm: regular rhythm Heart Sounds: murmur Psych Mental Status: mental status grossly normal Speech and Movement: speech and movement normal Mood: congruent mood Affect: normal affect COVID-19 Screening Have you, or household traveled for leisure in last 14 days?: No
--- NOTE | 2020-08-04 12:37 | W.NUTRFU ---
Date of service: 08/04/20 Time of Service: 12:37 Nutritional Follow up NOTE: 70 year old female with myelodysplastic syndrome for end of life care. Will be available prn. Time Spent in Nutritional Counseling and Treatment: 0
--- NOTE | 2020-08-04 15:12 | W.PALPGNOTE ---
Date of service: 08/04/20 Time of Service: 14:30 Assessment and Plan Assessment and plan (1) Comfort measures only status: Status: Acute (2) Myelodysplastic syndrome: Status: Acute (3) Palliative care patient: Status: Acute Assessment and plan: Amanda is a very pleasant 70-year-old female with an extensive oncologic history with myelodysplastic syndrome who has been transfusion dependent. She presented to the infusion room 3 days ago for her usual transfusions when she had gross hematuria and epistaxis. The infusion staff assisted her with getting to the ED with a plan of being admitted to med/surg for comfort care. She remains on comfort focused care. She denies any pain or SOB. She noticed a bruise on her left arm. She has comfort medications ordered in the event that symptoms arise. Palliative will continue to follow her. Jayce is encouraged to call the palliative office if they need anything. at least 90 minutes was spent reviewing the chart, seeing the patient, coordinating care and documentation. Subjective Subjective Interval history since last seen: Amanda was seen in her hospital room with her , Jayce present. She had transfusions on Saturday, she has decided to stop receiving blood products for her myelodysplastic syndrome. She is aware that this will lead to her . She is very calm and comfortable, she appears to be at peace with her decision. She has no complaints of pain or shortness of breath at this time. She has noticed mild bruising. She has not had any bleeding since before she got her last platelets. We discussed that she may notice more bruising and bleeding. She reports that she has been feeling pretty well, however today, she was more easily fatigued. She is enjoying the food at the hospital. She is moving her bowels, she has been drinking smooth move tea. Overall, she has been receiving very good care. Jayce has been able to be with her which is very important to her. She did some reflecting on her life, she feels that she has lived a very good life. The plan has been for her to come into the hospital for end-of-life care when she was ready, she is grateful that she had this option. Exam Narrative Exam Narrative: General: 70-year-old female, appears younger than stated age, sitting up in her bed, making good eye contact and engaging in conversation. She is alert and oriented. Her speech is clear and articulate. She does not appear to be in any distress. HEENT: Normocephalic, atraumatic, mucous membranes moist. Neck: Supple, no JVD. Respiratory: Respirations appear even and unlabored. Extremities: Moves all extremities freely. Small area of ecchymosis to her left arm proximal to her elbow.
[2020-08-05] MEDS: Normal Saline Flush 10 ML SYR IVP (06:35)
[2020-08-05] MEDS: Acetaminophen 500 MG TAB PO (09:08)
--- NOTE | 2020-08-05 11:46 | PHA.REVIEW ---
Pharmacy Admission Review - Admission Clinical Review (Last Reviewed 08/01/20 @ 16:35 by Blanca Mo NP) Palliative care patient (Acute) Comfort measures only status (Acute) Myelodysplastic syndrome (Acute) No Known Allergies Allergy (Unverified 08/01/20 13:47) Height 5 ft 1.81 in Weight 50.8 kg - Renal Dosing Medications needing adjustments: Reviewed (last SCr 07/28/20 current meds okay based on that value) - Anticoagulation DVT Prohphylaxis: N/A Therapeutic Anticoagulation: N/A - Opiate Usage Evaluate Pain Scale/Pains Meds: Reviewed Scheduled Bowel Reg ordered if on Opiates?: No - Relevant Labs Electrolytes, C-Reactive P, ESR: N/A - DM Control Insulin Dosing: N/A - Heart Failure/GA EF%, STEPHEN's, B-Blockers, Diuretics: N/A - BP Control If elevated: N/A - Qtc Review If Elevated: N/A - IV to PO Switch IV Medications: Reviewed - Home Meds Home Med List reviewed: Reviewed Relevent Home Meds Not ordered & why?: diphenhydramine, docusate, lidocaine patch, 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 Watch for med changes (need of BM meds).
--- NOTE | 2020-08-05 16:24 | CHAPLAIN ---
I visited with Amanda this morning, after Jayce had left, and before their friend Krystina arrived. Amanda shared some more personal history. She said she has noticed an other bunch on her leg that will likely turn into a bruise, and she feels more tired today she said. She remains pleasant and interested in conversation. Jayce continues to spend the night and leave in the morning for a few hours. Krystina usually visits during that time.
--- NOTE | 2020-08-05 20:06 | PCPN_ITS ---
Date of service: 08/05/20 Time of Service: 16:00 Assessment and Plan Assessment and plan (1) Comfort measures only status: Status: Acute (2) Myelodysplastic syndrome: Status: Acute (3) Palliative care patient: Status: Acute Assessment and plan: Amanda is a very pleasant 70-year-old female with an extensive oncologic history with myelodysplastic syndrome who has been transfusion dependent. She presented to the infusion room 4 days ago for her usual transfusions when she had gross hematuria and epistaxis. The infusion staff assisted her with getting to the ED with a plan of being admitted to med/surg for comfort-focused care. She remains on comfort focused care. She denies any SOB. The only pain she reports was in her left elbow last night which resolved with APAP. She noticed some blood spotting today when she was blowing her nose. No hematuria. She has comfort medications ordered in the event that symptoms arise. Palliative will continue to follow her. at least 78 minutes was spent reviewing the chart, seeing the patient, coordinating care and documentation. Subjective Subjective Interval history since last seen: Amanda was seen in her hospital room with her , Jayce present. She reports that she had left elbow pain, she took APAP 1000 mg and the pain resolved. She is eating and drinking. She reports that the kitchen has been very accommodating. She denies nausea or vomiting. She noticed some blood spotting when she was blowing her nose today. She has not noticed any other bleeding. Her friend, Krystina, has been visiting frequently. Amanda noticed that she became fatigued with company more quickly today. She spoke with her son today and told him that she is admitted to the hospital for comfort-focused care and that she is no longer receiving transfusions. He was upset with the idea that he would not be able to see her again. She is wondering what could be done so he could see her. She will be set up with [employer] so they can do a video conference tonight. Otherwise, she is content and comfortable here at [facility]. Exam Narrative Exam Narrative: General: 70-year-old female, appears younger than stated age, sitting up in her bed, making good eye contact and engaging in conversation. She is alert and oriented. Her speech is clear and articulate. She is tearful at times while talking about her son. HEENT: Normocephalic, atraumatic, mucous membranes moist. Neck: Supple, no JVD. Respiratory: Respirations appear even and unlabored. Extremities: Moves all extremities freely. Small area of ecchymosis to her left arm proximal to her elbow. Left elbow with swelling, no ecchymosis.
--- NOTE | 2020-08-06 16:44 | PGE_ITS ---
Date of Service Date of service: 08/06/20 Time of Service: 16:44 Assessment and Plan Assessment and plan (1) Comfort measures only status: Status: Acute (2) Myelodysplastic syndrome: Status: Acute (3) Palliative care patient: Status: Acute Assessment and plan: Amanda is a very pleasant 70-year-old female with an extensive oncologic history with myelodysplastic syndrome who has been transfusion dependent. She presented to the infusion room on 08/01/20 for her usual transfusions when she had gross hematuria and epistaxis. The infusion staff assisted her with getting to the ED with a plan of being admitted to med/surg for comfort-focused care. She remains on comfort focused care. She denies SOB. The only pain she reports is left elbow pain, APAP helps. She will try the heating pad. She denies bleeding today. She has comfort medications ordered in the event that symptoms arise. Palliative will continue to follow her. Subjective Subjective Interval history since last seen: Amanda was seen in her hospital room with her , Jayce present. She is more fatigued today. She feel asleep after lunch for about 3 hours. She continues to have some left elbow discomfort, APAP helps. We talked about using heat. She has a few scattered bruises. She is eating and drinking well. She always has a light evening meal. She took a shower this morning. She has been chatting with her son on [employer]. He is very happy with the video chats. Exam Narrative Exam Narrative: General: 70-year-old female, appears younger than stated age, sitting up in her bed, making good eye contact and engaging in conversation. She is alert and oriented. Her speech is clear and articulate. She appears more fatigued today. HEENT: Normocephalic, atraumatic, mucous membranes moist. Neck: Supple, no JVD. Respiratory: Respirations appear even and unlabored. Extremities: Moves all extremities freely. Small area of ecchymosis to her left arm proximal to her elbow. Left elbow with swelling, no ecchymosis. No lower extremity edema.
--- NOTE | 2020-08-07 16:56 | NUR.NOTE ---
Nursing Note: pt requested to have vitals taken. T:38.4 P:91 BP:101/63 R:19 O2:100%
[2020-08-07 16:57] VITALS: TEMP 38.4
[2020-08-07] MEDS: Acetaminophen 500 MG TAB PO (16:57)
[2020-08-07 17:57] VITALS: TEMP 36.9
--- NOTE | 2020-08-08 02:44 | NUR.NOTE ---
Nursing Note: 08/07/2020 2230H Patient complaining ochoa catheter was leaking. Upon inspection, urine noted in bed with mixed tinge of blood possibly from ochoa insertion trauma. Patient requested catheter to be removed. Ochoa catheter dc'd upon request. Ptient able to ambulate with one assist to the bathroom. Will continue to monitor
[2020-08-08 14:09] VITALS: TEMP 37.6
[2020-08-08] MEDS: Acetaminophen 500 MG TAB PO (15:45)
[2020-08-09] MEDS: Acetaminophen 500 MG TAB PO ×2 (09:48→19:14)
[2020-08-09 13:28] VITALS: BP 112/69; PULSE 94; RESP 20; TEMP 37.1; O2SAT 99
--- NOTE | 2020-08-09 14:09 | CHAPLAIN ---
I haven't seen Amanda since 08/05, and she seems more tired today. She was nestled in some pillows, but said she gets uncomfortable if she stays in the same position too long. Jayce was with her, and isn't going home today. He spent some time at home yesterday, while their friend Krystina stayed with Amanda. Amanda was not up for the usual, long conversations we've had in the past. I will continue to visit.
--- NOTE | 2020-08-09 19:21 | NUR.NOTE ---
Nursing Note: 08/09/20 19:21 Any discrepancies, omissions, or errors in documentation today can be related to the code black today when [employer] and the internet were down. This limited patient care. This nurse did not have access to patient's account, MAR, orders, documentation, etc. This nurse performed patient care and documentation as accurately and timely as possible.
[2020-08-10 06:00] VITALS: TEMP 36.5
[2020-08-10] MEDS: diphenhydrAMINE 25 MG CAP PO (09:01)
[2020-08-10] MEDS: Acetaminophen 500 MG TAB PO ×2 (09:02→15:39)
[2020-08-10] MEDS: Normal Saline Flush 10 ML SYR IVP ×2 (09:02→15:46)
--- NOTE | 2020-08-10 09:40 | PDOC.CMACT ---
Care Management Activity Note Amanda continues to have daily visits with her friend, Krystina and her Jayce, who stays with her overnight. She is also enjoying tele-visits with her son over Skype. She reports most activities are too difficult for her now, but she remains pleasant in interaction.
[2020-08-10] MEDS: Dexamethasone 4 MG/ML VIAL IVP (15:46)
[2020-08-11] MEDS: Scopolamine 1 MG/3 DAYS PATCH TD (02:15)
[2020-08-11 02:31] VITALS: PULSE 100; RESP 16; TEMP 36.1; O2SAT 99
--- NOTE | 2020-08-11 02:33 | NUR.NOTE ---
Nursing Note: At 0200 hrs. , Pt was put by her spouse on bedside commode, then called for help , pt seen feels dizzy , pale looking, , pt looks fainting like. Transferred to bed by 3 staff, very weak. Repositioned on semi romero's position. In few minutes, pt able to opened both eyes. complained of chest discomfort, instructed to do deep breathing exercise, secretions spat out, thick whitish phlegm , scopolamine offered, put on right behind ear.Pt regain her consciousness. Advised to use bedpan for voiding if continue to feel dizzy or drowsy. Requested to get temp 36.1, O2 Sat 99% at RA. Nursing will continue to monitor.
[2020-08-11] MEDS: Milk of Magnesia 30 ML CUP PO (08:16)
[2020-08-11] MEDS: Normal Saline Flush 10 ML SYR IVP ×3 (08:17→15:50)
[2020-08-11] MEDS: Dexamethasone 4 MG/ML VIAL IVP (08:17)
[2020-08-11] MEDS: Ondansetron 4 MG/2 ML VIAL IVP (09:29)
--- NOTE | 2020-08-11 13:03 | NUR.NOTE ---
Nursing Note: At about 12:45 today (08/11), pt insisted on using the bedside commode despite losing consciousness every time today that she has used the commode. Pt reported she could not urinate or have a bowel movement on the bedpan, in her brief, or on a bed pad and that she felt she had more energy. Pt transitioned to commode with myself and her with maximum assistance. Pt lost consciousness again during this time. Pt did have a bowel movement and was able to urinate. When pt transitioned back into bed, she had difficulty speaking and was very weak. Speaking improved minimally after a few minutes but she was still unable to finish sentences to express needs. Charge nurse informed of this scenario; charge nurse decided that two staff persons will be required to transition pt to commode if she again insists and cannot participate in the transition.
--- NOTE | 2020-08-11 14:45 | W.PALPGNOTE ---
Date of service: 08/11/20 Time of Service: 14:45 Assessment and Plan Assessment and plan (1) Comfort measures only status: Status: Acute (2) Myelodysplastic syndrome: Status: Acute (3) Palliative care patient: Status: Acute Assessment and plan: Amanda is a very pleasant 70-year-old female with an extensive oncologic history with myelodysplastic syndrome who has been transfusion dependent. She presented to the infusion room on 08/01/20 for her usual transfusions when she had gross hematuria and epistaxis. The infusion staff assisted her with getting to the ED with a plan of being admitted to med/surg for comfort-focused care. Amanda is becoming uncomfortable and has SOB. She is clearly declining. She is pale and weak. She is no longer eating, she is only sipping water. She was faint getting up to the commode. She is no longer getting out of bed. Start low dose morphine drip. Palliative will continue to follow her. Subjective Subjective Interval history since last seen: Amanda's , Jayce presented at the palliative care office requesting that I come see Amanda at the hospital. I assured him that I was planning on seeing her this afternoon. He was concerned because she has become less responsive, more fatigued, weaker and faint when getting up to the commode. Nursing has advised that she not get out of bed anymore. At the time of her visit, Amanda is laying in bed with a cool cloth on her forehead. She is pale. She opens her eyes to verbal stimuli. She is able to answer questions, she appears weak and fatigued. She is asking how long until she passes. She feels short of breath and uncomfortable. We talked about starting a morphine drip, she is readily agreeable. We will start at a low dose as she is sensitive to medications. Jayce is present and agrees. Amanda verbalized that she is no longer able to safely get up to the commode and she does not want a catheter. She is uncomfortable with being incontinent, but nursing is encouraging her not to worry about it. She is not eating, she is taking sips of water. Exam Narrative Exam Narrative: General: laying in bed, eyes closed, cool cloth on her head. She is very pale, she appears weak and fatigued. HEENT: lips are pale, mucous membranes dry. Neck: no JVD. Cardiovascular: heart sounds regular, tachycardic. Respiratory: she appears mildly SOB with talking. Her lungs are clear. GI: abdomen soft, nontender. Extremities: no edema. Objective Last Vital Signs Temp 36.1 C L 08/11/20 02:31 Pulse 100 H 08/11/20 02:31 Resp 16 08/11/20 02:31 BP 112/69 08/09/20 13:28 Pulse Ox 99 08/11/20 02:31
--- NOTE | 2020-08-11 15:21 | CHAPLAIN ---
Amanda was resting in bed, with Eduardo in the recliner next to here, when I stopped in. She is clearly getting weaker each day. According to Palliative Care notes, she is no longer eating, and drinking only sips of water, and feeling short of breath. A morphine drip will be started. I didn't stay long as Amanda said she was tired. I will check in again before going home.
[2020-08-11] MEDS: MORPHine 250 MG in Normal Saline 245 ML IV (15:50)
[2020-08-11 18:55] VITALS: TEMP 37.7
--- NOTE | 2020-08-12 08:33 | PGE_ITS ---
Date of Service Date of service: 08/12/20 Time of Service: 08:00 Assessment and Plan Assessment and plan (1) Dying care: Status: Acute Assessment and plan: Her is at her bedside 24/12. He reports he did get some sleep last night in the recliner, as Amanda was much more comfortable The LNAs are attending to her incontinence needs. She is no longer taking in food or liquids. She appears comfortable. When I speak to her, she smiles in response. She is not verbal with me. (2) Palliative care patient: Status: Acute Assessment and plan: Yvette Nielsen NP to see later today. (3) Comfort measures only status: Status: Acute Assessment and plan: I talked at length with her about what to expect. She does not have mottling or apnea yet. I think she will likely live another 24 hrs, but she is at risk for bleeding at any time. She does not want a catheter, and given her hematuria when it was last inserted, this seems a good choice. She is having black stools, c/w GI blood loss. No bloody nose, nor vaginal bleeding. She does have bruisnig, but no petichiae at this time. (4) Delirium: Status: Acute Assessment and plan: I explained to her that this is a normal part of dying and that she doesn't need medication to treat it unless she beomes agitated or frightened. Subjective Subjective Patient reports: no new complaints, pain is less, voiding w/o difficulty, bowel movement and blood in stool Interval history since last seen: I met with Amanda and her Jayce. I am seeing Amanda as a hospitalist today; Yvette Nielsen NP is due to see her this afternoon as Pall Care. Amanda looks comfortable. No furrowed brow. No grimace. He reports that she has had 2 black colored loose stools since she was given MOM yesterday. SHe was last changed at 0500. Amanda is currently on 1 mg/hr of morphine. She does get bolused prior to RELEASE SPECIALIST care. Her said she is intermittently hallucinating, c/w terminal delirium. Her also reports that she has not eaten anything or had any sips for about 48 hrs. She is receiving mouth care. He asked when I thought she would ; I explained that I doubt she will survive the weekend. Exam Narrative Exam Narrative: General: lying in bed, eyes closed, cool cloth on her head. She is very pale, she appears weak and fatigued. She smiles when spoken to. She is not speaking. HEENT: lips are pale, mucous membranes dry. Neck: no JVD. Cardiovascular: heart sounds regular, tachycardic. Respiratory: Her lungs are clear. GI: abdomen soft, nontender. Extremities: no edema. : her incontinence pants appear wet. Her reports that she does not want a catheter, as she had some bleeding when the nurses tried to insert it earlier. Neuro: appears to have terminal delirium. Not anxious or agitated. Talking about lobster with her earlier this am. Skin: some bruising, very pale Objective Last Vital Signs Temp 99.9 F H 08/11/20 18:55 Pulse 100 H 08/11/20 02:31 Resp 16 08/11/20 02:31 BP 112/69 08/09/20 13:28 Pulse Ox 99 08/11/20 02:31
[2020-08-12] MEDS: Normal Saline Flush 10 ML SYR IVP ×2 (11:45→16:13)
[2020-08-12] MEDS: Glycopyrrolate 0.2 MG/1 ML VIAL IVP ×2 (11:45→16:12)
--- NOTE | 2020-08-12 12:37 | W.PALPGNOTE ---
Date of service: 08/12/20 Time of Service: 12:37 Assessment and Plan Assessment and plan (1) Comfort measures only status: Status: Acute (2) Myelodysplastic syndrome: Status: Acute (3) Palliative care patient: Status: Acute Assessment and plan: Amanda is a very pleasant 70-year-old female with an extensive oncologic history with myelodysplastic syndrome who has been transfusion dependent. She presented to the infusion room on 08/01/20 for her usual transfusions when she had gross hematuria and epistaxis. The infusion staff assisted her with getting to the ED with a plan of being admitted to med/surg for comfort-focused care. Amanda is currently on MS drip at 2 mg/hr with 1 mg bolus q15 min PRN. She appears to be comfortable. Eduardo is with her at all times. He is encouraged to let nursing know if he feels she needs anything. She is no longer eating or drinking. She is incontinent of urine and stool. She is having black stools consistent with GI bleed. She did not want a ochoa catheter. She appears to be in her last hours to days of life. This was discussed with Jayce. Palliative will continue to follow her. Subjective Subjective Interval history since last seen: Amanda is on Morphine drip at 2 mg/hr with 1 mg q 15 minute bolus PRN. She appears to be comfortable. She opens her eyes to verbal stimuli but she is unable to respond. Jayce reports that she has had dark BMs and has been incontinent of both urine and stool. She has only had 2 sips of water today. She is no longer eating. We talked about what to expect and he is encouraged to let nursing know if he thinks she is uncomfortable in any way. He is eating and getting some rest. We talked again about how Amanda appears to be on her last hours to days of life and that our focus is her comfort. He is grateful for the care that she is receiving. Exam Narrative Exam Narrative: General: laying in bed, eyes closed, cool cloth on her head. She is very pale, she appears weak and fatigued. She looks comfortable. She opens her eyes and smiles to verbal stimuli but is unable to respond. HEENT: her lips are pale, mucous membranes dry. Neck: no JVD. Respiratory: respirations appear unlabored. GI: abdomen soft, nontender. Extremities: no edema or mottling. Skin: scattered ecchymosis. Objective Last Vital Signs Temp 37.7 C H 08/11/20 18:55 Pulse 100 H 08/11/20 02:31 Resp 16 08/11/20 02:31 BP 112/69 08/09/20 13:28 Pulse Ox 99 08/11/20 02:31
--- NOTE | 2020-08-12 15:34 | CHAPLAIN ---
I visited with Amanda and Jayce twice today. This morning, Amanda was sleeping. Jayce and I said a prayer together. Jayce plans to stay here. He may go outside for a bit if their friend Krystina comes to visit. and can sit with Amanda. This afternoon I sat next to Amanda and spoke with her for. She opened her eyes at times. She seems comfortable, and Jayce knows to let nursing know if she thinks she is uncomfortable at any point. Their children have called and spoken to Amanda by phone. I reminded Jayce that Aamnda continues to hear, and if the kids want to speak to her again, he could hold the phone to her ear, she may not respond, but will likely hear them.
--- NOTE | 2020-08-13 07:26 | W.PM.DDS ---
Date of service: 08/13/20 Time of Service: 07:26 Discharge Sum: Prov Provider Consults: 08/04/20 11:41 Drug Abuse Social Worker Consult [CONS] Routine Consultation Status:: Follow-up needed Clarification:: Manage/follow per spec. Reason for consult:: as needed 08/04/20 11:43 Palliative Care Consult [CONS] Routine Consultation Status:: Contact made by MD Clarification:: Manage/follow per spec. Reason for consult:: continuation of care Discharge Sum: Diag PCOD Cause of : Myelodysplastic syndrome Contributing Factors (1) Neutropenic fever: (2) Thrombocytopenia: (3) Anemia: Discharge Sum: Summary Date and Time Admission Date: 08/01/2102/04/21 11:42 Summary Details: Ms Jonathan Quiñonez was a 70 year old female who was on comfort measures at [facility] under the hospitalist service from 08/04/2020 until 08/13/2020 receiving end of life care for myelodysplastic syndrome, having chosen to no longer receive transfusions. She peacefully on 08/13/2020 at 03:15 and was pronounced at 03:20. We appreciate the opportunity to help care for Ms Jonathan Quiñonez in her final days and wish the family well. Additional Data Confirmation of as documented by pronouncing clinician: no pulse, no respirations, no heart sounds and pupils fixed and dilated Attending/PCP notified?: Yes Attending Physician: Sara Lima Was code activated?: No Autopsy requested?: No cellophane wrapping examiner notified?: No Advance directives: Yes Hospice patient?: No
== END 2020-08-13 05:04 | disposition expired | DRG 812 ==
PROVIDERS: Admitting Provider Internal Medicine; PCP Internal Medicine; Visit Provider Internal Medicine
DX: D46.9 Myelodysplastic syndrome, unspecified (principal); Z51.5 Encounter for palliative care; D64.9 Anemia, unspecified; Z85.3 Personal history of malignant neoplasm of breast; D70.9 Neutropenia, unspecified; R41.0 Disorientation, unspecified
CPT/HCPCS: 99232; 99233; 99305; 99307; 99309; 99315; J1100; J2405